=== PATIENT | female | born 1950 | race Caucasian/White ===

== ENCOUNTER → 2016-04-20 | Outpatient (REF) | payer BC ==
[2016-04-20 20:57] LABS: MICROSCOPIC INDICATED? MAN YES (NO)
[2016-04-20 21:04] LABS: BASO % 0.2 % (0.0-1.0); EOS % 0.3 % (0.0-3.0); LARGE UNSTAINED CELL # 0.3 K/mm3 (0.0-0.4); LARGE UNSTAINED CELL % 2.9 % (0.0-4.0); LYMPH # 1.4 K/mm3 (1.5-4.5); LYMPH % 12.4 % (24.0-44.0); MEAN CORPUSCULAR HEMOGLOBIN 28.2 pg (27.0-33.0); MEAN CORPUSCULAR HGB CONC 32.8 g/dl (32.0-36.5); MEAN CORPUSCULAR VOLUME 85.8 fl (80.0-96.0); MONO % 8.7 % (0.0-5.0); NEUTROPHILS # 8.8 K/mm3 (1.8-7.7); NEUTROPHILS % 75.4 % (36.0-66.0); PLATELET COUNT, AUTOMATED 280 k/mm3 (150-450); RED CELL DISTRIBUTION WIDTH 12.3 % (11.5-14.5); WHITE BLOOD COUNT 11.6 K/mm3 (4.0-10.0)
[2016-04-20 21:19] LABS: ALBUMIN 3.1 GM/DL (3.2-5.2); ALBUMIN/GLOBULIN RATIO 0.79 (1.00-1.93); BILIRUBIN,TOTAL 0.7 MG/DL (0.2-1.0); CALCIUM LEVEL 8.3 MG/DL (8.8-10.2); CREATININE FOR GFR 1.16 MG/DL (0.55-1.02); GLOMERULAR FILTRATION RATE 50.2 (>45); POTASSIUM SERUM 3.5 MEQ/L (3.5-5.1)
[2016-04-20 21:28] LABS: BACTERIA, URINE LARGE AMOUNT; HYALINE CAST, URINE NONE SEEN /lpf (0-1); MICROSCOPIC EXAM PERFORMED; SQUAMOUS EPITHELIAL CELL URINE SMALL AMOUNT /hpf (SMALL AMT); WBC, URINE TNTC /hpf (0-3)
== END ==
LOC: M SFHCPLAZ 14:51
PROVIDERS: ATTEND Nurse Practitioner Family
DX: R50.9 Fever, unspecified (principal); R39.15 Urgency of urination

== ENCOUNTER → 2016-04-20 | Outpatient (CLI) | payer BC ==
--- NOTE | 2016-04-20 16:25 | REP ---
Clinical: Fever and cough . Comparison: 05/09/2012 . Technique: PA and lateral. Findings: The mediastinum and cardiac silhouette are normal. The lung grossman are clear and without acute consolidation, effusion, or pneumothorax. The skeletal structures are intact and normal. Impression: 1. No acute cardiopulmonary process. Signed by Drwe Doyle MD 04/20/2016 04:16 P
== END ==
LOC: M LAB 15:43
PROVIDERS: ATTEND Nurse Practitioner Family
DX: R50.9 Fever, unspecified (principal); R05 Cough

== ENCOUNTER → 2016-04-26 | Outpatient (CLI) | payer BC ==
--- NOTE | 2016-04-26 08:54 | REP ---
Complete abdominal sonography: History: Right upper quadrant pain, right flank pain and fever. Findings: Scanning through the right upper quadrant of the abdomen demonstrates normal sized thin-walled gallbladder without evidence of stone or polyp. Common bile duct is normal measuring 0.4 cm in greatest diameter. There is evidence of some fatty infiltration of the liver. No focal liver lesion is seen. The tail of the pancreas is obscured by abdominal gas. No pancreatic abnormality is seen. A normal caliber aorta is seen measuring 2.4 cm in AP dimension. Renal cortical echogenicity pattern is normal and contours are smooth bilaterally. No mass, cyst, hydronephrosis or calculus is seen on either kidney. The right kidney measures 10.9 x 4.5 x 3.8 cm. Left renal dimensions are 10.5 x 4.3 x 4.2 cm. The spleen is homogeneous in texture and normal in size measuring 9.7 cm. Impression: Evidence of fatty infiltration of the liver. Otherwise unremarkable abdominal sonography. Signed by Boo Burciaga MD 04/26/2016 08:06 P
== END ==
LOC: M RAD 07:28
PROVIDERS: ATTEND Internal Medicine
DX: R10.11 Right upper quadrant pain (principal)

== ENCOUNTER → 2016-08-17 | Outpatient (REF) | payer BC | LOC: M SFHCPLAZ 11:53 | PROVIDERS: ATTEND Nurse Practitioner Adult Health | DX: R35.0 Frequency of micturition (principal) ==

== ENCOUNTER → 2016-10-14 | Outpatient (CLI) | payer BC ==
[~2016-10-14] MED LIST: ADV500INH INH; ALBU0.63 INH; ALBU17IN INH; ATOR1TAB19 PO; FLON1SPR; OMEP40CA2 PO; ONE1MIS PO; THEO300T5 PO
[2016-10-14 13:17] LABS: ALBUMIN 3.3 GM/DL (3.2-5.2); ALBUMIN/GLOBULIN RATIO 0.92 (1.00-1.93); BILIRUBIN,TOTAL 0.6 MG/DL (0.2-1.0); CALCIUM LEVEL 9.1 MG/DL (8.8-10.2); CREATININE FOR GFR 1.11 MG/DL (0.55-1.02); GLOMERULAR FILTRATION RATE 52.7 (>45); POTASSIUM SERUM 4.5 MEQ/L (3.5-5.1); TOTAL PROTEIN 6.9 GM/DL (6.4-8.2)
== END ==
LOC: M WUC 08:05
PROVIDERS: ATTEND Internal Medicine
DX: E11.9 Type 2 diabetes mellitus without complications (principal)

== ENCOUNTER → 2016-11-20 | Outpatient (CLI) | payer BC ==
--- NOTE | 2016-11-20 12:01 | REP ---
BILATERAL LOWER EXTREMITY DUPLEX DOPPLER VENOUS ULTRASOUND WITH EVALUATION FOR VENOUS REFLUX: Real-time compression and duplex Doppler interrogation of bilateral lower extremity deep venous systems is performed. Bilaterally, common femoral, superficial femoral and popliteal veins are fully compressible with transducer pressure and demonstrate normal spontaneous and phasic flow without evidence of deep venous thrombosis. Evaluation for venous reflux in the right lower extremity is performed. There is minimal reflux in the right common femoral vein. No reflux is seen in the superficial femoral or popliteal veins. There is an anterior accessory greater saphenous vein present measuring 4 mm in diameter, without reflux, with several varicosities communicating with the anterior accessory greater saphenous vein proximally. The vessel is very tortuous. Minimal reflux is seen in the right greater saphenous vein at the saphenofemoral junction 0.8 seconds duration, AP diameter 6 mm. No reflux is seen in the greater saphenous vein at the mid thigh level, AP diameter 3 mm. There is constant reversal of flow in the greater saphenous vein at the level of the knee. With AP diameter 2 mm. There is no reflux in the lesser saphenous vein AP diameter 4 mm. Please note that with Valsalva maneuver the reversal of flow in the greater saphenous vein at the level of the knee is not visualized. On the left, no reflux is seen in any of the deep veins. There is an anterior accessory greater saphenous vein present measuring 3 mm, without reflux. No reflux is seen in any portion of the greater saphenous vein, AP diameter at the saphenofemoral junction 6 mm, at the mid thigh 4 mm and at the knee 4 mm. There is no reflux in the lesser saphenous vein, AP diameter of 2 mm. Signed by Reg Lundberg MD 11/20/2016 12:53 P
== END ==
LOC: M RAD 09:15
PROVIDERS: ATTEND Surgery Vascular Surgery
DX: I83.011 Varicose veins of right lower extremity with ulcer of thigh (principal); I83.012 Varicose veins of right lower extremity with ulcer of calf

== ENCOUNTER → 2016-12-20 | Outpatient (CLI) | payer BC ==
[2016-12-20 20:06] LABS: CALCIUM LEVEL 9.1 MG/DL (8.8-10.2); GLOMERULAR FILTRATION RATE 59.4 (>45); POTASSIUM SERUM 4.1 MEQ/L (3.5-5.1)
[2016-12-20 20:14] LABS: MEAN CORPUSCULAR HEMOGLOBIN 28.4 pg (27.0-33.0); MEAN CORPUSCULAR HGB CONC 32.2 g/dl (32.0-36.5); MEAN CORPUSCULAR VOLUME 88.3 fl (80.0-96.0); RED CELL DISTRIBUTION WIDTH 12.7 % (11.5-14.5)
== END ==
LOC: M WUC 17:37
PROVIDERS: ATTEND Surgery Vascular Surgery
DX: I87.2 Venous insufficiency (chronic) (peripheral) (principal)

== ENCOUNTER → 2016-12-20 | Outpatient (CLI) | payer BC ==
--- NOTE | 2016-12-20 19:13 | REP ---
Right knee five views : There is no fracture or dislocation. Mineralization and joint spaces are normal. There are no calcifications or foreign bodies. There is questionably a small suprapatellar effusion. Impression: Questionable small suprapatellar effusion. Otherwise, negative right knee . Signed by Reg Beltran MD 12/20/2016 07:04 P
== END ==
LOC: M WUC 17:41
PROVIDERS: ATTEND Nurse Practitioner Adult Health
DX: M25.561 Pain in right knee (principal)

== ENCOUNTER 2016-12-29 13:29 | Day surgery (SDC) | payer BC ==
[~2016-12-29] VITALS: Ht 165.1 cm; Wt 95.3 kg
[~2016-12-29 13:29] MED LIST changes: +LIDOCAINE W/EPINEPHRINE 1% 20ML VIAL As Ordered ONE
[2016-12-29] MEDS ORDERED: LIDOCAINE 1% MDV 20ML VIAL SQ ONE (13:45)
[2016-12-29] MEDS ORDERED: LR 1,000 ML IV ONE (13:45)
[2016-12-29] MEDS ORDERED: fentaNYL 100 MCG/2 ML INJECTION (J3010) As Ordered ONE (15:19)
[2016-12-29] MEDS ORDERED: MIDAZOLAM INJ 2 MG/2 ML VIAL (J2250) As Ordered ONE (15:19)
[2016-12-29] MEDS ORDERED: KETAMINE HCL 200 MG/20 ML VIAL As Ordered ONE (15:19)
[2016-12-29] MEDS ORDERED: PROPOFOL 200 MG/20 ML VIAL As Ordered ONE (15:20)
[2016-12-29] MEDS ORDERED: LIDOCAINE 2% INJ 100 MG/5 ML SDV (FOR ANES.) As Ordered ONE (15:20)
[2016-12-29] MEDS ORDERED: ONDANSETRON 4MG/2ML VIAL (J2405) IV PRN (16:00)
[2016-12-29] MEDS ORDERED: fentaNYL 100 MCG/2 ML INJECTION (J3010) IV PRN (16:00)
[2016-12-29] MEDS ORDERED: LR 1,000 ML IV SCH (16:00)
[2016-12-29] MEDS ORDERED: PERCOCET 5MG/325MG TAB PO PRN (16:00)
[2016-12-29 16:15] VITALS: BP 144/67
--- NOTE | 2017-01-10 13:08 | RO ---
DATE OF PROCEDURE: 12/29/2016 PREOPERATIVE DIAGNOSES: Right lower extremity varicose veins. Right lower extremity pain, swelling, throbbing, aching and heaviness. Right greater saphenous vein venous valvular insufficiency. Right common femoral vein venous valvular insufficiency. POSTOPERATIVE DIAGNOSES: Right lower extremity varicose veins. Right lower extremity pain, swelling, throbbing, aching and heaviness. Right greater saphenous vein venous valvular insufficiency. Right common femoral vein venous valvular insufficiency. PROCEDURE: Right greater saphenous vein radiofrequency ablation. SURGEON: Dr. Eran Tenorio FIRST RESPONDER: None. ANESTHESIA: Local, MAC. ESTIMATED BLOOD LOSS: 21 mL. IV FLUIDS: 1000 mL. SPECIMENS: None. COMPLICATIONS: None. DRAINS: None. IMPLANTS: None. INDICATION: The patient is a 66-year-old female with pain, swelling, throbbing and aching in the lower extremity who has tried compressive therapy with minimal success who was evaluated and found to have valvular insufficiency in both the right greater saphenous vein and the right common femoral vein. The patient was evaluated and options discussed with the patient. The patient wishes to proceed with a right greater saphenous vein radiofrequency ablation. The risks, benefits and alternative treatment options were discussed with the patient. Benefits included, but were not limited to, relief of symptoms, risks including but not limited to infection, bleeding, possible need for open surgical intervention, cerebrovascular accident, myocardial infarction, pulmonary embolus, deep vein thrombosis, renal failure requiring hemodialysis, loss of limb, loss of life, burning of the skin, and poor outcome. The patient understands and accepts these risks and consents to procedure. Alternative treatment options included, but were not limited to, no intervention. The patient also understands that due to the presence of the right common femoral vein valvular insufficiency that her symptoms may not completely be abated and that she will require life long compressive therapy with compression stockings. The patient voices understanding of these risks, benefits, and alternative treatment options. All patient's questions were answered. The patient consents to proceed and accepts these risks associated with the procedure. PROCEDURE: The patient was taken to the operating room and placed supine on the operating room table and the right lower extremity was prepped and draped in a standard surgical fashion. Ultrasound was used to gain access of the right greater saphenous vein in the below knee region with a micropuncture needle after anesthetizing the overlying skin with 1% lidocaine. The micropuncture wire was advanced through the micropuncture needle which was up sized to a micropuncture sheath. A J-wire was advanced through the micropuncture sheath which was up sized to a 7 Macedonian sheath. The radiofrequency ablation catheter was advanced to 2 cm distal to the saphenofemoral junction. The tumescent solution was injected circumferentially around the right greater saphenous vein from the saphenofemoral junction to the entrance site in the below knee region, after which, the right greater saphenous vein was ablated using the radiofrequency ablation catheter from 2 cm distal to the saphenofemoral junction to the exit site in the below knee region. Dressings were then applied. The patient tolerated the procedure well. All instrument, sponge and needle counts were correct at the end of the case. There were no complications. Dr. Tenorio was present for and directed the entire case. The patient was transferred to the recovery room awake, alert, oriented and in stable condition.
== END 2016-12-29 16:33 | disposition home or self-care (01) ==
LOC: M SDC 13:29
PROVIDERS: ATTEND Surgery Vascular Surgery
DX: I83.811 Varicose veins of right lower extremity with pain (principal); I73.9 Peripheral vascular disease, unspecified; K21.9 Gastro-esophageal reflux disease without esophagitis; J45.909 Unspecified asthma, uncomplicated; E78.00 Pure hypercholesterolemia, unspecified; K57.32 Diverticulitis of large intestine without perforation or abscess without bleeding; K22.0 Achalasia of cardia; Z88.1 Allergy status to other antibiotic agents; Z88.2 Allergy status to sulfonamides; Z88.5 Allergy status to narcotic agent; Z88.8 Allergy status to other drugs, medicaments and biological substances; Z91.040 Latex allergy status; Z79.899 Other long term (current) drug therapy
CPT/HCPCS: 36475; J2250; J3010

== ENCOUNTER → 2017-01-05 | Outpatient (CLI) | payer BC ==
[~2017-01-05] MED LIST changes: -LIDOCAINE W/EPINEPHRINE 1% 20ML VIAL As Ordered ONE
--- NOTE | 2017-01-05 11:08 | REP ---
Right lower extremity deep vein duplex ultrasound: The deep veins demonstrate normal compression, normal Doppler color flow and normal Doppler waveforms with respiration augmentation at multiple levels from the popliteal vein to the common femoral vein. There is no deep vein thrombus in the right lower extremity. The the patient has had right saphenous vein ablation. There is thrombosis throughout the saphenous vein as expected. Signed by Reg Beltran MD 01/05/2017 10:59 A
== END ==
LOC: M RAD 09:02
PROVIDERS: ATTEND Surgery Vascular Surgery
DX: I87.2 Venous insufficiency (chronic) (peripheral) (principal)

== ENCOUNTER → 2017-03-13 | Outpatient (CLI) | payer BC | LOC: M WUC 17:43 | PROVIDERS: ATTEND Allergy & Immunology | DX: J45.40 Moderate persistent asthma, uncomplicated (principal) ==

== ENCOUNTER → 2017-03-30 | Outpatient (REF) | payer BC ==
[2017-03-30 11:26] LABS: MEAN CORPUSCULAR HEMOGLOBIN 27.8 pg (27.0-33.0); MEAN CORPUSCULAR HGB CONC 31.7 g/dl (32.0-36.5); MEAN CORPUSCULAR VOLUME 87.4 fl (80.0-96.0); PLATELET COUNT, AUTOMATED 518 10^3/uL (150-450); RED CELL DISTRIBUTION WIDTH 13.1 % (11.5-14.5); WHITE BLOOD COUNT 16.3 10^3/uL (4.0-10.0)
[2017-03-30 12:01] LABS: ALBUMIN 3.3 GM/DL (3.2-5.2); ALBUMIN/GLOBULIN RATIO 0.87 (1.00-1.93); ALKALINE PHOSPHATASE 124 U/L (45-117); ALT/SGPT 18 U/L (12-78); ANION GAP 7 MEQ/L (8-16); AST/SGOT 12 U/L (7-37); BILIRUBIN,TOTAL 0.4 MG/DL (0.2-1.0); BLOOD UREA NITROGEN 15 MG/DL (7-18); CALCIUM LEVEL 8.8 MG/DL (8.8-10.2); CARBON DIOXIDE LEVEL 32 MEQ/L (21-32); CHLORIDE LEVEL 103 MEQ/L (98-107); CHOLESTEROL LEVEL 178 MG/DL (<200); CREATININE FOR GFR 0.88 MG/DL (0.55-1.02); GLOMERULAR FILTRATION RATE > 60.0 (>45); GLUCOSE, FASTING 117 MG/DL (80-110); POTASSIUM SERUM 4.1 MEQ/L (3.5-5.1); SODIUM LEVEL 142 MEQ/L (136-145); THEOPHYLLINE LEVEL 16.2 UG/ML (10.0-20.0); TOTAL PROTEIN 7.1 GM/DL (6.4-8.2); TRIGLYCERIDES LEVEL 89 MG/DL (<150)
== END ==
LOC: M SFHCPLAZ 08:02
PROVIDERS: ATTEND Internal Medicine
DX: J45.909 Unspecified asthma, uncomplicated (principal); E11.9 Type 2 diabetes mellitus without complications; E78.00 Pure hypercholesterolemia, unspecified

== ENCOUNTER → 2017-04-27 | Outpatient (CLI) | payer BC | LOC: M WHC 07:56 | DX: Z12.31 Encounter for screening mammogram for malignant neoplasm of breast (principal); Z92.241 Personal history of systemic steroid therapy | CPT/HCPCS: 77067 ==

== ENCOUNTER → 2017-06-20 | Outpatient (REF) | payer BC ==
[2017-06-22 15:19] LABS: HPV HYBRID CAPTURE II Negative (Negative)
== END ==
LOC: M SFHCWAGY 08:45
DX: Z01.419 Encounter for gynecological examination (general) (routine) without abnormal findings (principal); Z11.51 Encounter for screening for human papillomavirus (HPV); N72 Inflammatory disease of cervix uteri
CPT/HCPCS: G0123

== ENCOUNTER → 2017-10-22 | Outpatient (REF) | payer BC ==
[2017-10-22 11:44] LABS: HEMATOCRIT 39.4 % (36.0-47.0); HEMOGLOBIN 12.8 g/dl (12.0-15.5); MEAN CORPUSCULAR HEMOGLOBIN 28.4 pg (27.0-33.0); MEAN CORPUSCULAR HGB CONC 32.5 g/dl (32.0-36.5); MEAN CORPUSCULAR VOLUME 87.6 fl (80.0-96.0); PLATELET COUNT, AUTOMATED 365 10^3/uL (150-450); RED CELL DISTRIBUTION WIDTH 13.4 % (11.5-14.5); WHITE BLOOD COUNT 11.1 10^3/uL (4.0-10.0)
[2017-10-22 12:10] LABS: ALBUMIN 3.3 GM/DL (3.2-5.2); ALBUMIN/GLOBULIN RATIO 0.85 (1.00-1.93); ALKALINE PHOSPHATASE 135 U/L (45-117); ALT/SGPT 20 U/L (12-78); ANION GAP 7 MEQ/L (8-16); AST/SGOT 16 U/L (7-37); BILIRUBIN,TOTAL 0.6 MG/DL (0.2-1.0); BLOOD UREA NITROGEN 17 MG/DL (7-18); CALCIUM LEVEL 9.1 MG/DL (8.8-10.2); CARBON DIOXIDE LEVEL 31 MEQ/L (21-32); CHLORIDE LEVEL 107 MEQ/L (98-107); CREATININE FOR GFR 0.94 MG/DL (0.55-1.30); GLOMERULAR FILTRATION RATE > 60.0 (>45); GLUCOSE, FASTING 115 MG/DL (70-100); POTASSIUM SERUM 4.4 MEQ/L (3.5-5.1); SODIUM LEVEL 145 MEQ/L (136-145); TOTAL PROTEIN 7.2 GM/DL (6.4-8.2)
[2017-10-22 12:16] LABS: CREATININE, URINE 98.1 MG/DL; MALB URINE SIEMENS 11.8 MG/L
[2017-10-22 13:48] LABS: ESTIMATED AVERAGE GLUCOSE 146 MG/DL (60-110); HEMOGLOBIN A1c 6.7 %
== END ==
LOC: M SFHCPLAZ 08:06
DX: J45.909 Unspecified asthma, uncomplicated (principal); E11.9 Type 2 diabetes mellitus without complications
CPT/HCPCS: 83735

== ENCOUNTER → 2018-03-06 | Outpatient (REF) | payer BC ==
[2018-03-06 13:33] LABS: HEMATOCRIT 38.9 % (36.0-47.0); HEMOGLOBIN 12.5 g/dl (12.0-15.5); MEAN CORPUSCULAR HGB CONC 32.1 g/dl (32.0-36.5); MEAN CORPUSCULAR VOLUME 87.2 fl (80.0-96.0); PLATELET COUNT, AUTOMATED 315 10^3/uL (150-450); RED BLOOD COUNT 4.46 10^6/uL (4.00-5.40); RED CELL DISTRIBUTION WIDTH 13.4 % (11.5-14.5); WHITE BLOOD COUNT 22.9 10^3/uL (4.0-10.0)
[2018-03-06 13:40] LABS: ALBUMIN 3.3 GM/DL (3.2-5.2); ALBUMIN/GLOBULIN RATIO 0.97 (1.00-1.93); ALKALINE PHOSPHATASE 114 U/L (45-117); ALT/SGPT 21 U/L (12-78); ANION GAP 10 MEQ/L (8-16); AST/SGOT 14 U/L (7-37); BILIRUBIN,TOTAL 0.7 MG/DL (0.2-1.0); BLOOD UREA NITROGEN 14 MG/DL (7-18); CALCIUM LEVEL 8.7 MG/DL (8.8-10.2); CARBON DIOXIDE LEVEL 26 MEQ/L (21-32); CHLORIDE LEVEL 98 MEQ/L (98-107); CREATININE FOR GFR 1.02 MG/DL (0.55-1.30); GLOMERULAR FILTRATION RATE 57.9 (>45); GLUCOSE, FASTING 228 MG/DL (70-100); POTASSIUM SERUM 3.7 MEQ/L (3.5-5.1); SODIUM LEVEL 134 MEQ/L (136-145); TOTAL PROTEIN 6.7 GM/DL (6.4-8.2)
== END ==
LOC: M SFHCPLAZ 10:45
DX: R50.9 Fever, unspecified (principal)
CPT/HCPCS: 80053

== ENCOUNTER → 2018-03-30 | Outpatient (CLI) | payer BC ==
--- NOTE | 2018-03-30 14:59 | REP ---
Clinical: Shortness of breath. Comparison: 04/20/2016 . Technique: PA and lateral. Findings: The mediastinum and cardiac silhouette are normal. The lung grossman are clear and without acute consolidation, effusion, or pneumothorax. The skeletal structures are intact and normal. Impression: 1. No acute cardiopulmonary process. Electronically Signed by Drew Doyle MD 03/30/2018 02:50 P
== END ==
LOC: M WUC 14:17
PROVIDERS: ATTEND Physician Assistant
DX: R06.02 Shortness of breath (principal)

== ENCOUNTER → 2018-04-22 | Outpatient (REF) | payer BC ==
[2018-04-22 12:51] LABS: ALBUMIN 3.4 GM/DL (3.2-5.2); ALT/SGPT 22 U/L (12-78); BILIRUBIN,TOTAL 0.4 MG/DL (0.2-1.0); BLOOD UREA NITROGEN 15 MG/DL (7-18); CALCIUM LEVEL 9.6 MG/DL (8.8-10.2); CARBON DIOXIDE LEVEL 28 MEQ/L (21-32); CHLORIDE LEVEL 107 MEQ/L (98-107); CHOLESTEROL LEVEL 191 MG/DL (<200); CHOLESTEROL RISK RATIO 2.938 (<5); CREATININE FOR GFR 0.94 MG/DL (0.55-1.30); GLOMERULAR FILTRATION RATE > 60.0 (>45); GLUCOSE, FASTING 127 MG/DL (70-100); HDL CHOLESTEROL 65 MG/DL (>40); LDL CHOLESTEROL 112 MG/DL (<100); MAGNESIUM LEVEL 2.2 MG/DL (1.8-2.4); NON-HDL-C 126 MG/DL; POTASSIUM SERUM 4.7 MEQ/L (3.5-5.1); SODIUM LEVEL 144 MEQ/L (136-145); TOTAL PROTEIN 7.2 GM/DL (6.4-8.2); TRIGLYCERIDES LEVEL 72 MG/DL (<150)
[2018-04-22 13:40] LABS: HEMOGLOBIN A1c 7.6 %
== END ==
LOC: M SFHCPLAZ 08:31
PROVIDERS: ATTEND Internal Medicine
DX: E11.9 Type 2 diabetes mellitus without complications (principal); E78.00 Pure hypercholesterolemia, unspecified; K22.0 Achalasia of cardia

== ENCOUNTER 2018-09-10 15:03 | Inpatient (IN) | payer BC, MEDICARE ==
[~2018-09-10] VITALS: Ht 165.1 cm; Wt 83.7 kg
[~2018-09-10 15:03] MED LIST changes: -ALBU83IN INH; -AMOX875T2 PO; -FLUC150T PO; -MUCI600T31 PO; -MULTCAP PO; -THEO300T13 PO; -VENTAER INH
[2018-09-10] MEDS ORDERED: IPRATROPIUM 0.5MG/ALBUTEROL 2.5MG INH SOL UD 3ML (DUONEB)(J7620) NEB ONE (16:00)
[2018-09-10] MEDS ORDERED: cefTRIAXone SOD 1 GM in D5W MINI-BAG PLUS 50 ML IV ONE (16:15)
[2018-09-10] MEDS ORDERED: ALBUTEROL SULFATE 2.5 MG/0.5 ML INH NEB SOLN INH PRN (16:30)
[2018-09-10] MEDS ORDERED: MOM 30ML SUSPENSION UDC PO PRN (16:30)
[2018-09-10] MEDS ORDERED: MAALOX 30 ML SUSP *UDC PO PRN (16:30)
[2018-09-10] MEDS ORDERED: ACETAMINOPHEN TAB 650MG DOSE (2X325MG) PO PRN (16:30)
[2018-09-10] MEDS ORDERED: ALBU83IN INH (16:52)
[2018-09-10] MEDS ORDERED: MULTCAP PO (16:52)
[2018-09-10] MEDS ORDERED: VENTAER INH (16:52)
[2018-09-10] MEDS ORDERED: THEO300T13 PO (16:53)
[2018-09-10] MEDS ORDERED: DOXYCYCLINE HYCLATE 100 MG in D5W MINI-BAG PLUS 100 ML IV ONE (17:15)
[2018-09-10 18:15] VITALS: BP 107/71
--- NOTE | 2018-09-10 19:22 | HPEPDOC ---
General Date of Admission 09/10/18 Date of Service: Sep 10, 2018 Attending Physician: STACIA RIOS DO Chief Complaint The patient is a 68-year-old female admitted with cough, fever, chills and cxr consistent with RLL pneumonia Source: Patient Exam Limitations: No limitations Timing/Duration: Day(s), Getting worse Severity: Moderate Associated Symptoms: Cough, Diaphoresis, Fever, Chills, Malaise, Shortness of breath History of Present Illness 68 yo female was in [place] over the past weekend for Granddaughter birthday when she developed 3-4 days of fever, chills, non productive cough. worsening and this AM was short of breath and seen in office, sent to ED. She states no ill contacts. States 4 weeks ago had esophageal dilitation due to GERD, 3 weeks ago saw ENT and stopped all sinus/allergy medications and told to use distilled water saline rinse. [facility] 2 weeks ago had right eye injection for macular degeneration; She has numerous antibiotic allergies and initial antibiotics of doxycycline and rocephin held by pharmacy. Patient states although she is "allergic" to doxacillin with altered mental status, she has taken augmentin before with no rash or ill effects. Home Medications Scheduled Atorvastatin Calcium (Atorvastatin Calcium) 10 Mg Tab, 10 MG PO QHS, (Reported) Multivitamin (Multivitamins) 1 Each Capsule, 1 CAP PO DAILY, (Reported) Omeprazole (Omeprazole) 40 Mg Cap, 40 MG PO DAILY, (Reported) Salmeterol/Fluticasone (Advair 500-50 Diskus) 28 Puff/Inhaler Aerp, 1 PUFF INH BID, (Reported) Theophylline Anhydrous (Theophylline Anhydrous) 300 Mg Tab.er.12h, 300 MG PO DAILY, (Reported) Scheduled PRN Albuterol Sulf (Albuterol Sulfate) 2.5 Mg/3 Ml Vial.neb, 2.5 MG INH Q4H PRN for SHORTNESS OF BREATH, (Reported) Albuterol Sulfate (Ventolin Hfa) 18 Gm Hfa.aer.ad, 2 PUFF INH Q4H PRN for SH ORTNESS OF BREATH, (Reported) Allergies Coded Allergies: Sulfa (Sulfonamide Antibiotics) (Verified Allergy, Intermediate, itchy rash, 09/10/18) bacitracin (Verified Allergy, Intermediate, rash, 09/10/18) cefaclor (Verified Allergy, Intermediate, rash, 09/10/18) clarithromycin (Verified Allergy, Intermediate, rash, 09/10/18) dicloxacillin (Verified Allergy, Intermediate, change LOC, 09/10/18) latex (Verified Allergy, Intermediate, rash, 09/10/18) moxifloxacin (Verified Allergy, Intermediate, rash, 09/10/18) phenazopyridine (Verified Allergy, Intermediate, 09/10/18) polymyxin B (Verified Allergy, Intermediate, rash, 09/10/18) tramadol (Verified Allergy, Intermediate, unk, 09/10/18) Past Medical History Medical History asthma, GERD, Chronic sinusitis, heart murmur, Right eye macular degeneration, vericose veins, Hx of right tib plateau fracture in 2018 Surgical History colonoscopy 08/2018, EGD with esophageal dilitation 08/2018, right leg vein stripping, Family History Significant Family History: COPD (both parents heavy smokers) Social History * Smoker: non-smoker, other (second hand smoke as child/teen) Alcohol: rarely Drugs: denies Recent Travel/Sick Contacts: Reports: Recent travel (drove to [place] and back on 09/04 and 09/07) A-FIB/CHADSVASC A-FIB History Current/History of A-Fib/PAF?: No Review of Systems Other systems 10 comprehensive systems reviewed and negative except as per HPI Physical Examination General Exam: Positive: Alert, Cooperative, Mild Distress Eye Exam: Positive: PERRLA, Conjunctiva & lids normal, EOMI ENT Exam: Positive: Mucous membr. moist/pink, Pharynx Normal Neck Exam: Positive: Supple, +2 carotid pulse wo bruit Chest Exam: Positive: Clear to auscultation, Normal air movement, Diminished (right base) Heart Exam: Positive: Rate Normal, Murmurs Abdomen Exam: Positive: Normal bowel sounds, Soft, Tenderness Extremity Exam: Positive: Normal pulses, Other (mild lymphedema, no pitting edema, no skin rash; significant bilateral vericose veins to legs) Skin Exam: Positive: Nl turgor and temperature Neuro Exam: Positive: Normal Gait, Normal Speech, Strength at 5/5 X4 ext, Normal Tone, Sensation Intact Psych Exam: Positive: Mental status NL, Mood NL, Oriented x 3 Vital Signs Vital Signs Date Time Temp Pulse Resp B/P (MAP) Pulse Ox O2 Delivery O2 Flow Rate FiO2 09/10/18 15:50 Room Air 09/10/18 15:39 77 18 123/79 (94) 96 09/10/18 15:03 98.4 Laboratory Data CBC/BMP Item Value Date Time White Blood Count 28.1 10^3/uL H 09/10/18 1329 Hemoglobin 13.1 g/dl 09/10/18 1329 Hematocrit 40.7 % 09/10/18 1329 Platelet Count 312 10^3/uL 09/10/18 1329 Neutrophils (%) (Auto) 85.6 % H 09/10/18 1329 Lymphocytes (%) (Auto) 6.4 % L 09/10/18 1329 Monocytes (%) (Auto) 6.8 % H 09/10/18 1329 Neutrophils # (Auto) 24.1 10^3/uL H 09/10/18 1329 Monocytes # (Auto) 1.9 10^3/uL H 09/10/18 1329 Sodium Level 138 MEQ/L 09/10/18 1329 Potassium Level 4.0 MEQ/L 09/10/18 1329 Chloride Level 103 MEQ/L 09/10/18 1329 Carbon Dioxide Level 28 MEQ/L 09/10/18 1329 Blood Urea Nitrogen 12 MG/DL 09/10/18 1329 Creatinine 1.01 MG/DL 09/10/18 1329 Anion Gap 7 MEQ/L L 09/10/18 1329 Total Protein 7.0 GM/DL 09/10/18 1329 Albumin/Globulin Ratio 0.79 L 09/10/18 1329 Albumin 3.1 GM/DL L 09/10/18 1329 Lactic Acid Level 1.3 MMOL/L 09/10/18 1329 Microbiology Microbiology 09/10/18 Blood Culture, Received Pending 09/10/18 Respiratory Virus Panel (PCR) (DARYL), Received Pending RAD Interpretation STUDY: CXR Rad Actions: Report Reviewed, Films Reviewed, Discussed with the pt RAD Interpretation: Other Result Comments: (subtle RLL pneumonia/infiltrate, no effusion, no cardiomegally) Problems (1) Pneumonia Permanent Comment: probable bacterial, community acquired Last Edited By: Stacia Rios MD on Sep 10, 2018 19:25 Status: Acute Response to Treatment: Compensated (2) Asthma without acute exacerbation Plan / VTE VTE Prophylaxis Ordered?: Yes Plan Plan IVF given in ED Start IV zosyn, Blood culture, sputum cultures obtained. rachael echavarria repeat labs in AM Diet: Advance Medications: Change to IV, Start Antibiotics Respiratory: Increase Therapy, Pulse Ox on Room Air Diagnostics: Repeat Labs in AM Anticipated Discharge: Home STACIA RIOS DO Sep 10, 2018 16:32
[2018-09-10] MEDS: ATORVASTATIN 10 MG TAB PO SCH (20:33)
[2018-09-10] MEDS: DOCUSATE SODIUM 100 MG CAP PO SCH (20:33)
[2018-09-10] MEDS: guaiFENesin ER 600 MG TAB PO SCH (20:34)
[2018-09-10] MEDS: IPRATROPIUM 0.5MG/ALBUTEROL 2.5MG INH SOL UD 3ML (DUONEB)(J7620) INH SCH ×2 (20:46→23:39)
[2018-09-10] MEDS: PIPERACILLIN/TAZOBACTAM SOD 4.5 GM in D5W MINI-BAG PLUS 50 ML IV SCH (21:25)
[2018-09-10 22:00] VITALS: BP 100/52
[2018-09-10] MEDS: ADVAIR HFA 230/21MCG INHALER INH SCH (23:46)
[2018-09-11] MEDS: IPRATROPIUM 0.5MG/ALBUTEROL 2.5MG INH SOL UD 3ML (DUONEB)(J7620) INH SCH ×5 (03:11→20:00)
[2018-09-11 06:00] VITALS: BP 100/64
[2018-09-11] MEDS: PIPERACILLIN/TAZOBACTAM SOD 4.5 GM in D5W MINI-BAG PLUS 50 ML IV SCH ×3 (06:14→22:03)
[2018-09-11 06:19] LABS: HEMATOCRIT 36.7 % (36.0-47.0); HEMOGLOBIN 11.8 g/dl (12.0-15.5); MEAN CORPUSCULAR HEMOGLOBIN 28.8 pg (27.0-33.0); MEAN CORPUSCULAR HGB CONC 32.2 g/dl (32.0-36.5); MEAN CORPUSCULAR VOLUME 89.5 fl (80.0-96.0); PLATELET COUNT, AUTOMATED 257 10^3/uL (150-450); WHITE BLOOD COUNT 16.3 10^3/uL (4.0-10.0)
[2018-09-11 06:42] LABS: BLOOD UREA NITROGEN 13 MG/DL (7-18); CALCIUM LEVEL 8.9 MG/DL (8.8-10.2); CARBON DIOXIDE LEVEL 26 MEQ/L (21-32); CHLORIDE LEVEL 106 MEQ/L (98-107); CREATININE FOR GFR 0.98 MG/DL (0.55-1.30); GLOMERULAR FILTRATION RATE > 60.0 (>45); GLUCOSE, FASTING 123 MG/DL (70-100); POTASSIUM SERUM 3.7 MEQ/L (3.5-5.1); SODIUM LEVEL 140 MEQ/L (136-145)
[2018-09-11] MEDS: THEOPHYLLINE (THEO-24) 100MG SR **CAPSULE PO SCH (08:05)
[2018-09-11] MEDS: guaiFENesin ER 600 MG TAB PO SCH ×2 (08:05→22:03)
[2018-09-11] MEDS: MULTIVITAMINS/MINERALS THERAP 1 TAB PO SCH (08:05)
[2018-09-11] MEDS: ENOXAPARIN 40 MG/0.4 ML SYRINGE (J1650) SC SCH (08:05)
[2018-09-11] MEDS: OMEPRAZOLE 20 MG CAP PO SCH (08:06)
[2018-09-11] MEDS: DOCUSATE SODIUM 100 MG CAP PO SCH ×2 (08:06→22:03)
[2018-09-11] MEDS: ADVAIR HFA 230/21MCG INHALER INH SCH ×2 (09:13→20:32)
[2018-09-11 14:28] VITALS: BP 98/46
[2018-09-11 15:30] VITALS: BP 117/56
[2018-09-11] MEDS: ATORVASTATIN 10 MG TAB PO SCH (22:03)
[2018-09-12] VITALS: BP 115/68
[2018-09-12] MEDS: IPRATROPIUM 0.5MG/ALBUTEROL 2.5MG INH SOL UD 3ML (DUONEB)(J7620) INH SCH ×5 (00:41→20:00)
[2018-09-12] MEDS: PIPERACILLIN/TAZOBACTAM SOD 4.5 GM in D5W MINI-BAG PLUS 50 ML IV SCH ×3 (05:35→21:04)
[2018-09-12 06:00] VITALS: BP 96/50
[2018-09-12] MEDS: ADVAIR HFA 230/21MCG INHALER INH SCH ×2 (07:42→20:08)
[2018-09-12 08:00] VITALS: BP 106/60
--- NOTE | 2018-09-12 09:23 | IPNPDOC ---
Subjective Date Seen The patient was seen on 09/11/18. Subjective Chief Complaint/HPI 68 yo admitted with pneumonia. currently on zosyn day 2; patient states feels better today. At 3am this am 09/11/18, she had large mucus post tussis emesis with copious yellow phlegm and her breathing felt improved. States increased coughing today, no fever. mild SOB ambulating to bathroom, no N, no V of meals Current Medications Acetaminophen (Tylenol Tab) 650 mg Q4H PRN PO PAIN OR FEVER; Start 09/10/18 at 16:30 Al Hydrox/Mg Hydrox/Simethicone (Mylanta) 10 ml DAILY PRN PO DYSPEPSIA; Start 09/10/18 at 16:30 Albuterol Sulfate (Proventil Neb) 2.5 mg Q4HP PRN INH WHEEZING; Start 09/10/18 at 16:30 Albuterol/ Ipratropium (Duoneb (Ipr 0.5mg/Alb 2.5mg)) 3 ml RQ4H INH Last administered on 09/11/18at 15:36; Start 09/10/18 at 20:00 Atorvastatin Calcium (Lipitor) 10 mg QHS PO Last administered on 09/10/18at 20:33; Start 09/10/18 at 21:00 Docusate Sodium (Colace) 100 mg BID PO Last administered on 09/11/18at 08:06; Start 09/10/18 at 21:00 Enoxaparin Sodium (Lovenox) 40 mg DAILY SC Last administered on 09/11/18at 08:05; Start 09/11/18 at 09:00 Guaifenesin (Mucinex Tab Er) 1,200 mg BID PO Last administered on 09/11/18at 08:05; Start 09/10/18 at 21:00 Home Med (Med Rec Complete!) ASDIRECTED XX ; Start 09/10/18 at 17:00; Stop 09/10/18 at 17:05; Status DC Magnesium Hydroxide (Milk Of Magnesia) 30 ml DAILY PRN PO CONSTIPATION; Start 09/10/18 at 16:30 Multivitamins (Theragram-M) 1 tab DAILY PO Last administered on 09/11/18at 08:05; Start 09/11/18 at 09:00 Omeprazole (PriLOSEC) 40 mg DAILY PO Last administered on 09/11/18at 08:06; Start 09/11/18 at 09:00 Piperacillin Sod/ Tazobactam Sod 4.5 gm/Dextrose 50 ml @ 50 mls/hr Q8H IV Last administered on 09/11/18at 13:10; Start 09/10/18 at 21:00 Salmeterol Xinafoate/ Fluticasone (Advair Hfa 230/ 21) 1 puff BID INH Last administered on 09/11/18at 09:13; Start 09/10/18 at 21:00 Theophylline (Arthur-24) 600 mg DAILY PO Last administered on 09/11/18at 08:05; Start 09/11/18 at 09:00 Objective Physical Examination General Exam: Positive: Alert, Cooperative, No Acute Distress Eye Exam: Positive: PERRLA, Conjunctiva & lids normal, EOMI ENT Exam: Positive: Mucous membr. moist/pink, Pharynx Normal Neck Exam: Positive: Supple, +2 carotid pulse wo bruit Chest Exam: Positive: Clear to auscultation, Normal air movement, Rhonchi, Diminished ( with wheeze to right base during cough episode) Heart Exam: Positive: Rate Normal, Murmurs Abdomen Exam: Positive: Normal bowel sounds, Soft, Tenderness Extremity Exam: Positive: Normal pulses, Other (mild lymphedema, no pitting edema, no skin rash; significant bilateral vericose veins to legs) Skin Exam: Positive: Nl turgor and temperature Neuro Exam: Positive: Normal Gait, Normal Speech, Strength at 5/5 X4 ext, Normal Tone, Sensation Intact Psych Exam: Positive: Mental status NL, Mood NL, Oriented x 3 Assessment /Plan Problems (1) Pneumonia Permanent Comment: probable bacterial, community acquired Last Edited By: Val Rios MD on Sep 10, 2018 19:25 Status: Acute Response to Treatment: Compensated Problem Text: continue with zosyn, PEP/acapella,nebs, mucinex. (2) Asthma without acute exacerbation Response to Treatment: Stable Plan/VTE VTE Prophylaxis Ordered?: Yes Plan Anticipated Discharge: Home VS, I&O, 24H, Fishbone Vital Signs/I&O Vital Signs Date Time Temp Pulse Resp B/P (MAP) Pulse Ox O2 Delivery O2 Flow Rate FiO2 09/11/18 15:41 100 09/11/18 14:28 98.7 14 98/46 (63) 99 09/10/18 18:03 Room Air I&O- Last 24 Hours up to 6 AM 09/11/18 06:00 Intake Total 300 ml Output Total 500 ml Balance -200 ml Laboratory Data 24H LABS Laboratory Tests 2 09/11/18 05:59: Nucleated Red Blood Cells % (auto) 0.0, Anion Gap 8, Glomerular Filtration Rate > 60.0, Blood Urea Nitrogen 13, Creatinine 0.98, Sodium Level 140, Potassium Level 3.7, Chloride Level 106, Carbon Dioxide Level 26, Calcium Level 8.9 09/11/18 09:14: CBC/BMP Laboratory Tests 09/11/18 05:59 Red Blood Count 4.10, Mean Corpuscular Volume 89.5, Mean Corpuscular Hemoglobin 28.8, Mean Corpuscular Hemoglobin Concent 32.2, Red Cell Distribution Width 13.7, Calcium Level 8.9 Microbiology Microbiology 09/10/18 Blood Culture, Received Pending 09/10/18 Blood Culture, Received Pending 09/10/18 Gram Stain - Final, Resulted 09/10/18 Sputum Culture, Resulted Pending 09/10/18 Respiratory Virus Panel (PCR) (DARYL) - Final, Complete VAL RIOS DO Sep 11, 2018 15:52
--- NOTE | 2018-09-12 09:26 | IPNPDOC ---
Text Note Date of Service The patient was seen on 09/12/18. NOTE S: 68 yo female admitted with pneumonia - probable bacterial. states feeling better still with copious yellow sputum, mostly during evening. no SOB, no LEE, no CP O: Vitals as below General: pleasant, NAD, AAOx3 HRRR LCTA with course rhonchi and occasional wheeze with forced exhalation Ext no edema Skin: No rash Labs as below A/P: (1) Pneumonia Permanent Comment: probable bacterial, community acquired Last Edited By: Val Rios MD on Sep 10, 2018 19:25 Status: Acute Response to Treatment: Compensated Problem Text: continue with zosyn, PEP/acapella,nebs, mucinex. (2) Asthma without acute exacerbation Response to Treatment: Stable Await sputum culture, urine for strep, etc. If WBC decreased tomorrow, anticipate d/c home. Item Value Date Time White Blood Count 16.3 10^3/uL H 09/11/18 0559 Hemoglobin 11.8 g/dl L 09/11/18 0559 VS,Fishbone, I+O VS, Fishbone, I+O Vital Signs Date Time Temp Pulse Resp B/P (MAP) Pulse Ox O2 Delivery O2 Flow Rate FiO2 09/12/18 08:00 97.5 75 18 106/60 (75) 95 09/10/18 18:03 Room Air I&O- Last 24 Hours up to 6 AM 09/12/18 06:00 Intake Total 1940 ml Output Total 2850 ml Balance -910 ml VAL RIOS DO Sep 12, 2018 09:25
[2018-09-12] MEDS: MULTIVITAMINS/MINERALS THERAP 1 TAB PO SCH (09:28)
[2018-09-12] MEDS: ENOXAPARIN 40 MG/0.4 ML SYRINGE (J1650) SC SCH (09:29)
[2018-09-12] MEDS: DOCUSATE SODIUM 100 MG CAP PO SCH ×2 (09:30→21:03)
[2018-09-12] MEDS: guaiFENesin ER 600 MG TAB PO SCH ×2 (09:30→21:04)
[2018-09-12] MEDS: THEOPHYLLINE (THEO-24) 100MG SR **CAPSULE PO SCH (09:30)
[2018-09-12] MEDS: OMEPRAZOLE 20 MG CAP PO SCH (09:30)
[2018-09-12 12:00] VITALS: BP 100/53
[2018-09-12 16:00] VITALS: BP 113/65
[2018-09-12 20:00] VITALS: BP 113/68
[2018-09-12] MEDS: ATORVASTATIN 10 MG TAB PO SCH (21:04)
[2018-09-13] VITALS: BP 124/58
[2018-09-13 04:00] VITALS: BP 119/56
[2018-09-13] MEDS: PIPERACILLIN/TAZOBACTAM SOD 4.5 GM in D5W MINI-BAG PLUS 50 ML IV SCH (04:21)
[2018-09-13] MEDS: IPRATROPIUM 0.5MG/ALBUTEROL 2.5MG INH SOL UD 3ML (DUONEB)(J7620) INH SCH ×4 (04:21→11:25)
[2018-09-13] MEDS: ADVAIR HFA 230/21MCG INHALER INH SCH (06:17)
[2018-09-13 06:58] LABS: HEMOGLOBIN 11.2 g/dl (12.0-15.5); MEAN CORPUSCULAR HEMOGLOBIN 28.6 pg (27.0-33.0); MEAN CORPUSCULAR VOLUME 89.5 fl (80.0-96.0); PLATELET COUNT, AUTOMATED 269 10^3/uL (150-450); RED BLOOD COUNT 3.91 10^6/uL (4.00-5.40); WHITE BLOOD COUNT 10.8 10^3/uL (4.0-10.0)
[2018-09-13] MEDS: OMEPRAZOLE 20 MG CAP PO SCH (08:31)
[2018-09-13] MEDS: THEOPHYLLINE (THEO-24) 100MG SR **CAPSULE PO SCH (08:31)
[2018-09-13] MEDS: guaiFENesin ER 600 MG TAB PO SCH (08:31)
[2018-09-13] MEDS: MULTIVITAMINS/MINERALS THERAP 1 TAB PO SCH (08:32)
[2018-09-13] MEDS: DOCUSATE SODIUM 100 MG CAP PO SCH (08:32)
[2018-09-13] MEDS: ENOXAPARIN 40 MG/0.4 ML SYRINGE (J1650) SC SCH (08:34)
[2018-09-13 08:45] VITALS: BP 133/72
--- NOTE | 2018-09-13 10:59 | DS.PDOC ---
Discharge Summary General Date of Admission Sep 10, 2018 at 16:26 Date of Discharge 09/13/18 Primary Care Physician: Mikal Meek Attending Physician: VAL STERN DO Discharge Summary PROCEDURES PERFORMED DURING STAY: none ADMITTING DIAGNOSES: 1. pneumonia 2. asthma without exacerbation DISCHARGE DIAGNOSES: 1. Haemophilus Influenzae pneumonia 2. Asthma without exacerbation COMPLICATIONS/CHIEF COMPLAINT: Pneumonia. HISTORY OF PRESENT ILLNESS: 68 yo female was in [place] over the past weekend for Granddaughter birthday when she developed 3-4 days of fever, chills, non productive cough. worsening and this AM was short of breath and seen in office, sent to ED. She states no ill contacts. [facility] 4 weeks ago had esophageal dili tation due to GERD, 3 weeks ago saw ENT and stopped all sinus/allergy medications and told to use distilled water saline rinse. [facility] 2 weeks ago had right eye injection for macular degeneration; She has numerous antibiotic allergies and initial antibiotics of doxycycline and rocephin held by pharmacy. Patient states although she is "allergic" to doxacillin with altered mental status, she has taken augmentin before with no rash or ill effects. HOSPITAL COURSE: patient admitted, placed on IV zosyn, mucinex and IVF. She showed improving trend with normalization of WBC. Sputum culture showed HFlu sensitive to PCN. She was changed to oral augmentin and discharge in stable and improved condition DISCHARGE MEDICATIONS: Please see below. ALLERGIES: Please see below. PHYSICAL EXAMINATION ON DISCHARGE: VITAL SIGNS: Please see below. General: pleasant, NAD, AAOx3 HRRR LCTA no Wheeze, mild rhonchi RLL, no rales Ext: no edema LABORATORY DATA: Please see below. IMAGING: CXR with improvement to RLL pneumonia PROGNOSIS: GOOD ACTIVITY: as tolerated. DIET:regular DISCHARGE PLAN: discharge home DISCHARGE INSTRUCTIONS: 1. augmentin x 7 days 2. mucinex x 7 days 3. follow up with PCP in 7-10 days for recheck of lungs DISCHARGE CONDITION: stable TIME SPENT ON DISCHARGE: Greater than 34 minutes. Vital Signs/I&Os Vital Signs Date Time Temp Pulse Resp B/P (MAP) Pulse Ox O2 Delivery O2 Flow Rate FiO2 09/13/18 08:45 99.1 84 18 133/72 (92) 95 09/10/18 18:03 Room Air I&O- Last 24 Hours up to 6 AM 09/13/18 06:00 Intake Total 2510 ml Output Total 3000 ml Balance -490 ml Laboratory Data Labs 24H Laboratory Tests 2 09/13/18 06:34: Nucleated Red Blood Cells % (auto) 0.0 CBC/BMP Laboratory Tests 09/13/18 06:34 Red Blood Count 3.91 L, Mean Corpuscular Volume 89.5, Mean Corpuscular Hemoglobin 28.6, Mean Corpuscular Hemoglobin Concent 32.0, Red Cell Distribution Width 13.3 Microbiology Microbiology 09/10/18 Blood Culture - Preliminary, Resulted No Growth after 48 hours. All Specime... 09/10/18 Blood Culture - Preliminary, Resulted No Growth after 48 hours. All Specime... 09/10/18 Gram Stain - Final, Complete 09/10/18 Sputum Culture - Final, Complete Haemophilus Influenzae 09/10/18 Respiratory Virus Panel (PCR) (DARYL) - Final, Complete Discharge Medications Scheduled Amoxicillin/Potassium Clav (Amox-Clav 875-125 mg Tablet) 1 Each Tablet, 1 TAB PO BID Atorvastatin Calcium (Atorvastatin Calcium) 10 Mg Tab, 10 MG PO QHS, (Reported) Fluconazole (Fluconazole) 150 Mg Tablet, 150 MG PO Q3DP Guaifenesin (Mucinex) 600 Mg Tab.er.12h, 1,200 MG PO BID over the counter Multivitamin (Multivitamins) 1 Each Capsule, 1 CAP PO DAILY, (Reported) Omeprazole (Omeprazole) 40 Mg Cap, 40 MG PO DAILY, (Reported) Salmeterol/Fluticasone (Advair 500-50 Diskus) 28 Puff/Inhaler Aerp, 1 PUFF INH BID, (Reported) Theophylline Anhydrous (Theophylline Anhydrous) 300 Mg Tab.er.12h, 300 MG PO DAILY, (Reported) Scheduled PRN Albuterol Sulf (Albuterol Sulfate) 2.5 Mg/3 Ml Vial.neb, 2.5 MG INH Q4H PRN for SHORTNESS OF BREATH, (Reported) Albuterol Sulfate (Ventolin Hfa) 18 Gm Hfa.aer.ad, 2 PUFF INH Q4H PRN for SHORTNESS OF BREATH, (Reported) Allergies Coded Allergies: Sulfa (Sulfonamide Antibiotics) (Verified Allergy, Intermediate, itchy rash, 09/10/18) bacitracin (Verified Allergy, Intermediate, rash, 09/10/18) cefaclor (Verified Allergy, Intermediate, rash, 09/10/18) clarithromycin (Verified Allergy, Intermediate, rash, 09/10/18) latex (Verified Allergy, Intermediate, rash, 09/10/18) moxifloxacin (Verified Allergy, Intermediate, rash, 09/10/18) phenazopyridine (Verified Allergy, Intermediate, 09/10/18) polymyxin B (Verified Allergy, Intermediate, rash, 09/10/18) tramadol (Verified Allergy, Intermediate, unk, 09/10/18) dicloxacillin (Verified Adverse Reaction, Intermediate, change LOC, 09/10/18) VAL STERN DO Sep 13, 2018 10:59
[2018-09-13] MEDS ORDERED: MUCI600T31 PO (11:07)
[2018-09-13] MEDS ORDERED: FLUC150T PO (11:07)
[2018-09-13] MEDS ORDERED: AMOX875T2 PO (11:07)
--- NOTE | 2018-09-13 11:42 | REP ---
Chest two views HISTORY: Pneumonia Comparison: 09/10/2018 Patchy density is present in the right lower lobe consistent with an infiltrate unchanged compared to the previous study. The left lung is clear. The heart is normal in size. The pulmonary vasculature is normal in appearance. The bony structure is intact. IMPRESSION: Right lower lobe infiltrate unchanged compared to the previous study. Electronically Signed by Nael Ramos MD 09/13/2018 11:34 A
[2018-09-13 15:46] LABS: MYCOPLASMA PNEUMONIAE IgG 955 U/mL (0-99); MYCOPLASMA PNEUMONIAE IgM <770 U/mL (0-769)
== END 2018-09-13 13:05 | disposition home or self-care (01) | DRG 137 ==
LOC: M ED 15:03 → M ED INP 16:26 → M MS5PR 18:10 → M PED 09-11 15:00
PROVIDERS: ADMIT Family Medicine; ATTEND Family Medicine
DX: J14 Pneumonia due to Hemophilus influenzae (principal); H35.30 Unspecified macular degeneration; K21.9 Gastro-esophageal reflux disease without esophagitis; I83.90 Asymptomatic varicose veins of unspecified lower extremity; R01.1 Cardiac murmur, unspecified; J45.909 Unspecified asthma, uncomplicated; Z88.1 Allergy status to other antibiotic agents; Z88.2 Allergy status to sulfonamides; Z88.8 Allergy status to other drugs, medicaments and biological substances; Z88.5 Allergy status to narcotic agent; Z91.040 Latex allergy status

== ENCOUNTER → 2018-09-10 | Outpatient (CLI) | payer BC ==
[~2018-09-10] MED LIST changes: +ALBU83IN INH; +AMOX875T2 PO; +FLUC150T PO; +MUCI600T31 PO; +MULTCAP PO; +THEO300T13 PO; +VENTAER INH
[2018-09-10 14:06] LABS: BASO # 0.1 10^3/uL (0.0-0.2); BASO % 0.4 % (0.0-1.0); HEMATOCRIT 40.7 % (36.0-47.0); HEMOGLOBIN 13.1 g/dl (12.0-15.5); LYMPH # 1.8 10^3/uL (1.5-4.5); LYMPH % 6.4 % (24.0-44.0); MEAN CORPUSCULAR HEMOGLOBIN 28.9 pg (27.0-33.0); MEAN CORPUSCULAR HGB CONC 32.2 g/dl (32.0-36.5); MEAN CORPUSCULAR VOLUME 89.6 fl (80.0-96.0); MONO # 1.9 10^3/uL (0.0-0.8); MONO % 6.8 % (0.0-5.0); NEUTROPHILS # 24.1 10^3/uL (1.8-7.7); NEUTROPHILS % 85.6 % (36.0-66.0); PLATELET COUNT, AUTOMATED 312 10^3/uL (150-450); RED BLOOD COUNT 4.54 10^6/uL (4.00-5.40); WHITE BLOOD COUNT 28.1 10^3/uL (4.0-10.0)
[2018-09-10 14:35] LABS: ALBUMIN 3.1 GM/DL (3.2-5.2); BILIRUBIN,TOTAL 0.7 MG/DL (0.2-1.0); CALCIUM LEVEL 8.5 MG/DL (8.8-10.2); CREATININE FOR GFR 1.01 MG/DL (0.55-1.30); GLOMERULAR FILTRATION RATE 58.4 (>45)
--- NOTE | 2018-09-10 15:46 | REP ---
Chest two views HISTORY: Fever Comparison: 03/30/1980 Patchy density is present in the right lower lobe consistent with an infiltrate. The left lung is clear. The heart is normal in size. The pulmonary vasculature is normal in appearance. The bony structure is intact. IMPRESSION: Right lower lobe infiltrate. Electronically Signed by Nael Ramos MD 09/10/2018 03:38 P
== END ==
LOC: M LAB 12:56
PROVIDERS: ATTEND Nurse Practitioner Family
DX: R91.8 Other nonspecific abnormal finding of lung field (principal); R50.9 Fever, unspecified

== ENCOUNTER → 2018-09-18 | Outpatient (CLI) | payer BC, MEDICARE ==
[~2018-09-18] MED LIST changes: +ALBU83IN INH; +AMOX875T2 PO; +FLUC150T PO; +MUCI600T31 PO; +MULTCAP PO; +THEO300T13 PO; +VENTAER INH
--- NOTE | 2018-09-18 19:04 | REP ---
Chest two views HISTORY: Pneumonia Comparison: 09/13/2018 Patchy density is present in the right lower lobe consistent with an infiltrate that is slightly decreased compared to the previous study. The left lung is clear. The heart is normal in size. The pulmonary vasculature is normal in appearance. The bony structure is intact. IMPRESSION: Right lower lobe infiltrate slightly decreased compared to the previous study. Electronically Signed by Nael Ramos MD 09/18/2018 06:55 P
== END ==
LOC: M WUC 17:06
PROVIDERS: ATTEND Nurse Practitioner Adult Health
DX: J14 Pneumonia due to Hemophilus influenzae (principal)

== ENCOUNTER → 2018-10-14 | Outpatient (REF) | payer BC ==
[2018-10-14 10:33] LABS: HEMOGLOBIN A1c 7.1 %
[2018-10-14 13:55] LABS: CREATININE, URINE 73.3 MG/DL; MALB URINE SIEMENS 6.4 MG/L; MAU/CREAT RATIO 8.7 MCG/MG (0.0-30.0)
== END ==
LOC: M SFHCPLAZ 08:17
PROVIDERS: ATTEND Internal Medicine
DX: E11.9 Type 2 diabetes mellitus without complications (principal)

== ENCOUNTER → 2018-10-22 | Outpatient (CLI) | payer BC ==
[~2018-10-22] MED LIST changes: -OMEP40CA2 PO; +OMEP40CA97 PO
--- NOTE | 2018-10-23 07:14 | REP ---
CHEST, TWO VIEWS: Two views of the chest are performed and compared to a several prior studies, most recently 09/18/2018. There is still some mild persistent infiltrate in the right lateral lung base, with continued improvement since the most recent exam. The left lung demonstrates no infiltrate. The heart is normal in size. The mediastinal silhouette is unchanged. There are degenerative changes of the spine. IMPRESSION: Continued improvement of infiltrate in the right lateral lung base but there is still mild residual. Recommend CT of the chest to further evaluate and exclude underlying neoplasm. Electronically Signed by Reg Lundberg MD 10/24/2018 11:41 A
== END ==
LOC: M WUC 16:41
PROVIDERS: ATTEND Nurse Practitioner Family
DX: R91.8 Other nonspecific abnormal finding of lung field (principal); J06.9 Acute upper respiratory infection, unspecified

== ENCOUNTER → 2018-10-22 | Outpatient (REF) | payer BC ==
[~2018-10-22] MED LIST changes: +OMEP40CA2 PO; -OMEP40CA97 PO
[2018-10-22 17:51] LABS: BASO % 0.3 % (0.0-1.0); EOS # 0.2 10^3/uL (0.0-0.50); EOS % 1.9 % (0.0-3.0); HEMATOCRIT 43.5 % (36.0-47.0); HEMOGLOBIN 13.8 g/dl (12.0-15.5); LYMPH # 2.8 10^3/uL (1.5-4.5); LYMPH % 21.8 % (24.0-44.0); MEAN CORPUSCULAR HEMOGLOBIN 28.2 pg (27.0-33.0); MEAN CORPUSCULAR HGB CONC 31.7 g/dl (32.0-36.5); MONO # 0.8 10^3/uL (0.0-0.8); MONO % 6.5 % (0.0-5.0); NEUTROPHILS # 8.7 10^3/uL (1.8-7.7); NEUTROPHILS % 69.1 % (36.0-66.0); PLATELET COUNT, AUTOMATED 361 10^3/uL (150-450); RED BLOOD COUNT 4.89 10^6/uL (4.00-5.40); WHITE BLOOD COUNT 12.6 10^3/uL (4.0-10.0)
[2018-10-22 18:22] LABS: BLOOD UREA NITROGEN 10 MG/DL (7-18); CALCIUM LEVEL 9.2 MG/DL (8.8-10.2); CARBON DIOXIDE LEVEL 27 MEQ/L (21-32); CHLORIDE LEVEL 103 MEQ/L (98-107); CREATININE FOR GFR 0.98 MG/DL (0.55-1.30); GLOMERULAR FILTRATION RATE > 60.0 (>45); GLUCOSE, FASTING 95 MG/DL (70-100); POTASSIUM SERUM 3.8 MEQ/L (3.5-5.1); SODIUM LEVEL 137 MEQ/L (136-145)
== END ==
LOC: M SFHCPLAZ 15:42
PROVIDERS: ATTEND Nurse Practitioner Family
DX: J06.9 Acute upper respiratory infection, unspecified (principal)

== ENCOUNTER → 2019-03-01 | Outpatient (CLI) | payer BC ==
[~2019-03-01] MED LIST changes: -OMEP40CA2 PO; +OMEP40CA97 PO
[2019-03-01 13:02] LABS: HEMATOCRIT 42.6 % (36.0-47.0); HEMOGLOBIN 12.9 g/dl (12.0-15.5); MEAN CORPUSCULAR HEMOGLOBIN 27.6 pg (27.0-33.0); MEAN CORPUSCULAR HGB CONC 30.3 g/dl (32.0-36.5); MEAN CORPUSCULAR VOLUME 91.2 fl (80.0-96.0); PLATELET COUNT, AUTOMATED 397 10^3/uL (150-450); RED BLOOD COUNT 4.67 10^6/uL (4.00-5.40); WHITE BLOOD COUNT 12.1 10^3/uL (4.0-10.0)
[2019-03-01 13:13] LABS: ALBUMIN 3.2 GM/DL (3.2-5.2); ALT/SGPT 17 U/L (12-78); BILIRUBIN,TOTAL 0.4 MG/DL (0.2-1.0); BLOOD UREA NITROGEN 15 MG/DL (7-18); CARBON DIOXIDE LEVEL 31 MEQ/L (21-32); CHLORIDE LEVEL 107 MEQ/L (98-107); CHOLESTEROL LEVEL 152 MG/DL (<200); CHOLESTEROL RISK RATIO 2.375 (<5); CREATININE FOR GFR 0.98 MG/DL (0.55-1.30); GLOMERULAR FILTRATION RATE > 60.0 (>45); GLUCOSE, FASTING 111 MG/DL (70-100); HDL CHOLESTEROL 64 MG/DL (>40); LDL CHOLESTEROL 72 MG/DL (<100); NON-HDL-C 88 MG/DL; POTASSIUM SERUM 4.4 MEQ/L (3.5-5.1); SODIUM LEVEL 143 MEQ/L (136-145); TOTAL PROTEIN 7.1 GM/DL (6.4-8.2); TRIGLYCERIDES LEVEL 82 MG/DL (<150)
[2019-03-01 13:26] LABS: HEMOGLOBIN A1c 7.3 %
[2019-03-01 13:31] LABS: MALB URINE SIEMENS 5.7 MG/L; MAU/CREAT RATIO 5.3 MCG/MG (0.0-30.0)
== END ==
LOC: M WUC 09:28
PROVIDERS: ATTEND Internal Medicine
DX: E11.9 Type 2 diabetes mellitus without complications (principal); E78.00 Pure hypercholesterolemia, unspecified; J45.909 Unspecified asthma, uncomplicated

== ENCOUNTER → 2019-05-16 | Outpatient (CLI) | payer BC ==
--- NOTE | 2019-05-16 10:17 | REPPI ---
Right knee series: Five views. History: Acute pain in the right knee. Findings: Five views of the right knee demonstrate diffuse soft tissue swelling. There is minimal medial compartment spurring. There is minimal articular spurring of the patella on the lateral radiograph. There is prepatellar soft tissue swelling visible on the lateral film but no evidence of joint effusion. Impression: Extra-articular soft tissue swelling. 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 No acute bony abnormality. Electronically Signed by Boo Burciaga MD 05/16/2019 12:14 P
== END ==
LOC: M PLAIMG 09:24
PROVIDERS: ATTEND Family Medicine
DX: M17.11 Unilateral primary osteoarthritis, right knee (principal); M79.89 Other specified soft tissue disorders

== ENCOUNTER → 2019-09-09 | Outpatient (CLI) | payer BC ==
[2019-09-09 10:25] LABS: ALBUMIN 3.4 GM/DL (3.2-5.2); ALT/SGPT 23 U/L (12-78); BILIRUBIN,TOTAL 0.6 MG/DL (0.2-1.0); BLOOD UREA NITROGEN 14 MG/DL (7-18); CALCIUM LEVEL 8.9 MG/DL (8.8-10.2); CARBON DIOXIDE LEVEL 29 MEQ/L (21-32); CHLORIDE LEVEL 106 MEQ/L (98-107); CREATININE FOR GFR 0.97 MG/DL (0.55-1.30); GLOMERULAR FILTRATION RATE > 60.0 (>45); GLUCOSE, FASTING 138 MG/DL (70-100); MAGNESIUM LEVEL 2.2 MG/DL (1.8-2.4); POTASSIUM SERUM 4.3 MEQ/L (3.5-5.1); SODIUM LEVEL 141 MEQ/L (136-145)
[2019-09-09 10:45] LABS: HEMOGLOBIN A1c 7.7 %
== END ==
LOC: M WUC 08:10
PROVIDERS: ATTEND Internal Medicine
DX: E11.9 Type 2 diabetes mellitus without complications (principal); K22.0 Achalasia of cardia; Z13.29 Encounter for screening for other suspected endocrine disorder

== ENCOUNTER → 2019-10-22 | Outpatient (CLI) | payer BC ==
[~2019-10-22] MED LIST changes: +ASCO250T20 PO; +METF-839 PO; +OCUVCAP2 PO
--- NOTE | 2019-10-22 11:39 | REPMRS ---
Patient History The patient states she has not had a clinical breast exam in over a year. No known family history of cancer. 3D TOMOSYNTHESIS WAS PERFORMED. [facility] lifetime risk for breast cancer is 5.0%. VOLPARA DENSITY B. Digital Woman Screen Mammo: October 22, 2019 - Exam #: [id number] Bilateral CC and MLO view(s) were taken. Technologist: Sakina Jarvis, Technologist Prior study comparison: April 27, 2017, digital woman screen mammo performed at [facility]. July 14, 2014, digital woman screen mammo performed at [facility]. FINDINGS: There are scattered fibroglandular densities. There has been no change in the appearance of the mammogram from the prior studies. There is a mild amount of residual fibroglandular tissue which is fairly symmetric. There is no interval development of dominant mass, architectural distortion, or clustered microcalcification suggestive of malignancy. Assessment: BI-RADS/ACR category 1 mammogram. Negative Mammogram. Recommendation Routine screening mammogram in 1 year (for women over age 40). This mammogram was interpreted with the aid of an FDA-approved computer-aided dectection system. Electronically Signed By: Reg Lundberg MD 10/22/19 [id number]
--- NOTE | 2019-11-26 10:17 | DEXA ---
AP SPINE L1 - L4 1.125 -0.6 1.1 LT FEMUR TOTAL 0.879 -1.0 0.3 LT NECK 0.821 -1.6 0.0 RT FEMUR TOTAL 0.818 -1.5 -0.2 RT NECK 0.811 -1.6 -0.1 TOTAL BODY TOTAL OTHER COMMENTS: Normal Bone Densitometry of the spine. There is low bone density of the hips. The increased density of the spine does not represent a significant change. The increased density of the left hip does not represent a significant change. The decreased density of the right hip does represent a significant change. The density of the spine has decreased 4.7% since the initial exam on 02/02/2006. The increased 1.9% since the most recent exam on 04/27/2017. The density of the left hip has decreased 19.7% since the initial exam on 02/02/2006. The density of the left hip has increased 0.5% since the most recent exam on 04/27/2017. The density of the right hip has decreased 25.6% since the initial exam on 02/02/2006. The density of the right hip has decreased 7.0% since the most recent exam on 04/26/2017. FOLLOW-UP: Recommendation for the next bone density exam: 2 years. ABBIE
== END ==
LOC: M WHC 09:56
PROVIDERS: ATTEND Internal Medicine
DX: Z12.31 Encounter for screening mammogram for malignant neoplasm of breast (principal); Z13.820 Encounter for screening for osteoporosis; Z92.241 Personal history of systemic steroid therapy

== ENCOUNTER → 2019-12-22 | Outpatient (CLI) | payer BC ==
[2019-12-22 13:41] LABS: ALBUMIN 3.5 GM/DL (3.2-5.2); ALT/SGPT 19 U/L (12-78); BILIRUBIN,TOTAL 0.6 MG/DL (0.2-1.0); BLOOD UREA NITROGEN 14 MG/DL (7-18); CALCIUM LEVEL 9.3 MG/DL (8.8-10.2); CARBON DIOXIDE LEVEL 27 MEQ/L (21-32); CHLORIDE LEVEL 104 MEQ/L (98-107); CHOLESTEROL LEVEL 175 MG/DL (<200); CHOLESTEROL RISK RATIO 2.302 (<5); CREATININE FOR GFR 0.93 MG/DL (0.55-1.30); GLOMERULAR FILTRATION RATE > 60.0 (>45); GLUCOSE, FASTING 127 MG/DL (70-100); HDL CHOLESTEROL 76 MG/DL (>40); LDL CHOLESTEROL 83 MG/DL (<100); NON-HDL-C 99 MG/DL; POTASSIUM SERUM 4.1 MEQ/L (3.5-5.1); SODIUM LEVEL 139 MEQ/L (136-145); TOTAL PROTEIN 7.4 GM/DL (6.4-8.2); TRIGLYCERIDES LEVEL 82 MG/DL (<150)
[2019-12-22 14:32] LABS: HEMOGLOBIN A1c 7.4 %
== END ==
LOC: M PLALAB 12:06
PROVIDERS: ATTEND Nurse Practitioner Adult Health
DX: E11.9 Type 2 diabetes mellitus without complications (principal); E78.00 Pure hypercholesterolemia, unspecified

== ENCOUNTER → 2020-02-21 | Outpatient (CLI) | payer BC | LOC: M LABSMTC 10:59 | PROVIDERS: ATTEND Anesthesiology | DX: Z01.812 Encounter for preprocedural laboratory examination (principal); Z20.828 Contact with and (suspected) exposure to other viral communicable diseases ==

== ENCOUNTER 2020-02-26 06:46 | Day surgery (SDC) | payer BC ==
[~2020-02-26] VITALS: Ht 165.1 cm; Wt 95.3 kg
[~2020-02-26 06:46] MED LIST changes: +BSS IRR 500ML/OMIDRIA 4ML IRR BAG (OR ONLY) (J1097 PER ML) As Ordered ONE; +CEFUROXIME 1MG/0.1ML INTRACAMERAL INJ As Ordered ONE; +DUOVISC (0.50ML VISCOAT/0.55ML PROVISC) OPHTH KIT As Ordered ONE; +POVIDONE-IODINE 5% OPHTH PREP SOL 30ML As Ordered ONE
[2020-02-26] MEDS ORDERED: PROPARACAINE 0.5% OPHTH SOL 15ML OS ONE (07:00)
[2020-02-26] MEDS ORDERED: PHENYLEPHRINE 2.5% OPHTH SOL 2ML OS ONE (07:00)
[2020-02-26] MEDS ORDERED: TROPICAMIDE 1% OPHTH SOLN 2ML OS ONE (07:00)
[2020-02-26] MEDS ORDERED: fentaNYL 100 MCG/2 ML INJECTION (J3010) As Ordered ONE (07:20)
[2020-02-26] MEDS ORDERED: MIDAZOLAM INJ 2MG/2ML VIAL (J2250 PER 1MG) As Ordered ONE (07:20)
[2020-02-26] MEDS ORDERED: DUOVISC (0.50ML VISCOAT/0.55ML PROVISC) OPHTH KIT As Ordered ONE (08:36)
[2020-02-26 09:30] VITALS: BP 111/59
== END 2020-02-26 09:50 | disposition home or self-care (01) ==
LOC: M SDC 06:46
PROVIDERS: ATTEND Ophthalmology
DX: H25.12 Age-related nuclear cataract, left eye (principal); E11.9 Type 2 diabetes mellitus without complications; E78.5 Hyperlipidemia, unspecified; M12.9 Arthropathy, unspecified; J45.909 Unspecified asthma, uncomplicated; K22.0 Achalasia of cardia; K21.9 Gastro-esophageal reflux disease without esophagitis; R01.1 Cardiac murmur, unspecified; Z78.0 Asymptomatic menopausal state; Z79.84 Long term (current) use of oral hypoglycemic drugs; Z79.899 Other long term (current) drug therapy; Z85.828 Personal history of other malignant neoplasm of skin; Z87.81 Personal history of (healed) traumatic fracture; Z88.1 Allergy status to other antibiotic agents; Z88.2 Allergy status to sulfonamides; Z88.5 Allergy status to narcotic agent; Z88.8 Allergy status to other drugs, medicaments and biological substances; Z91.040 Latex allergy status
CPT/HCPCS: 66984; 92015; J2250; J3010

== ENCOUNTER → 2020-03-18 | Outpatient (CLI) | payer BC ==
[~2020-03-18] MED LIST changes: -BSS IRR 500ML/OMIDRIA 4ML IRR BAG (OR ONLY) (J1097 PER ML) As Ordered ONE; -CEFUROXIME 1MG/0.1ML INTRACAMERAL INJ As Ordered ONE; -DUOVISC (0.50ML VISCOAT/0.55ML PROVISC) OPHTH KIT As Ordered ONE; -POVIDONE-IODINE 5% OPHTH PREP SOL 30ML As Ordered ONE
[2020-03-18 10:51] LABS: HEMATOCRIT 41.4 % (36.0-47.0); HEMOGLOBIN 12.8 g/dl (12.0-15.5); MEAN CORPUSCULAR HEMOGLOBIN 27.5 pg (27.0-33.0); MEAN CORPUSCULAR HGB CONC 30.9 g/dl (32.0-36.5); PLATELET COUNT, AUTOMATED 346 10^3/uL (150-450); RED BLOOD COUNT 4.65 10^6/uL (4.00-5.40); WHITE BLOOD COUNT 10.6 10^3/uL (4.0-10.0)
[2020-03-18 11:11] LABS: HEMOGLOBIN A1c 6.7 %
[2020-03-18 11:17] LABS: ALBUMIN 3.5 GM/DL (3.2-5.2); ALT/SGPT 19 U/L (12-78); BILIRUBIN,TOTAL 0.4 MG/DL (0.2-1.0); BLOOD UREA NITROGEN 13 MG/DL (7-18); CALCIUM LEVEL 9.1 MG/DL (8.8-10.2); CARBON DIOXIDE LEVEL 29 MEQ/L (21-32); CHLORIDE LEVEL 108 MEQ/L (98-107); CHOLESTEROL LEVEL 157 MG/DL (<200); CHOLESTEROL RISK RATIO 2.308 (<5); CREATININE FOR GFR 0.91 MG/DL (0.55-1.30); GLOMERULAR FILTRATION RATE > 60.0 (>45); GLUCOSE, FASTING 122 MG/DL (70-100); HDL CHOLESTEROL 68 MG/DL (>40); LDL CHOLESTEROL 70 MG/DL (<100); NON-HDL-C 89 MG/DL; POTASSIUM SERUM 4.7 MEQ/L (3.5-5.1); SODIUM LEVEL 142 MEQ/L (136-145); TOTAL PROTEIN 7.1 GM/DL (6.4-8.2); TRIGLYCERIDES LEVEL 93 MG/DL (<150)
[2020-03-18 11:24] LABS: MALB URINE SIEMENS 21.1 MG/L; MAU/CREAT RATIO 15.9 MCG/MG (0.0-30.0)
== END ==
LOC: M WUC 08:04
PROVIDERS: ATTEND Internal Medicine
DX: E11.9 Type 2 diabetes mellitus without complications (principal); E78.00 Pure hypercholesterolemia, unspecified; J45.41 Moderate persistent asthma with (acute) exacerbation

== ENCOUNTER → 2020-09-18 | Outpatient (CLI) | payer BC ==
[2020-09-18 11:18] LABS: HEMOGLOBIN A1c 6.6 %
[2020-09-18 11:32] LABS: ALBUMIN 3.4 GM/DL (3.2-5.2); ALT/SGPT 16 U/L (12-78); BILIRUBIN,TOTAL 0.5 MG/DL (0.2-1.0); BLOOD UREA NITROGEN 14 MG/DL (7-18); CALCIUM LEVEL 9.2 MG/DL (8.8-10.2); CARBON DIOXIDE LEVEL 29 MEQ/L (21-32); CHLORIDE LEVEL 107 MEQ/L (98-107); CHOLESTEROL LEVEL 148 MG/DL (<200); CHOLESTEROL RISK RATIO 2.176 (<5); CREATININE FOR GFR 0.89 MG/DL (0.55-1.30); GLOMERULAR FILTRATION RATE > 60.0 (>45); GLUCOSE, FASTING 100 MG/DL (70-100); HDL CHOLESTEROL 68 MG/DL (>40); LDL CHOLESTEROL 67 MG/DL (<100); NON-HDL-C 80 MG/DL; POTASSIUM SERUM 4.4 MEQ/L (3.5-5.1); SODIUM LEVEL 143 MEQ/L (136-145); TRIGLYCERIDES LEVEL 66 MG/DL (<150)
[2020-09-20 11:48] LABS: HEPATITIS C VIRUS ABY INDEX < 0.0 INDEX (<0.8)
== END ==
LOC: M LAB 09:33
PROVIDERS: ATTEND Internal Medicine
DX: E78.00 Pure hypercholesterolemia, unspecified (principal); E11.9 Type 2 diabetes mellitus without complications; Z86.010 Personal history of colon polyps; Z11.59 Encounter for screening for other viral diseases

== ENCOUNTER → 2021-03-17 | Outpatient (CLI) | payer BC ==
[~2021-03-17] MED LIST changes: +OMEP40CA4 PO; -OMEP40CA97 PO
[2021-03-17 10:12] LABS: BASO # 0.1 10^3/uL (0.0-0.2); BASO % 0.9 % (0.0-1.0); EOS # 0.5 10^3/uL (0.0-0.5); EOS % 5.4 % (0.0-3.0); HEMATOCRIT 40.6 % (36.0-47.0); HEMOGLOBIN 12.6 g/dl (12.0-15.5); LYMPH # 3.3 10^3/uL (1.5-5.0); LYMPH % 32.7 % (24.0-44.0); MEAN CORPUSCULAR HEMOGLOBIN 27.1 pg (27.0-33.0); MEAN CORPUSCULAR VOLUME 87.3 fl (80.0-96.0); MONO # 0.7 10^3/uL (0.0-0.8); MONO % 7.1 % (2.0-8.0); NEUTROPHILS # 5.4 10^3/uL (1.5-8.5); NEUTROPHILS % 53.4 % (36.0-66.0); PLATELET COUNT, AUTOMATED 390 10^3/uL (150-450); RED BLOOD COUNT 4.65 10^6/uL (4.00-5.40); WHITE BLOOD COUNT 10.1 10^3/uL (4.0-10.0)
[2021-03-17 10:39] LABS: CREATININE, URINE 84.9 MG/DL; MALB URINE SIEMENS 11.8 MG/L; MAU/CREAT RATIO 13.8 MCG/MG (0.0-30.0)
[2021-03-17 10:47] LABS: ALBUMIN 3.4 GM/DL (3.2-5.2); ALT/SGPT 18 U/L (12-78); BILIRUBIN,TOTAL 0.4 MG/DL (0.2-1.0); BLOOD UREA NITROGEN 15 MG/DL (7-18); CALCIUM LEVEL 9.2 MG/DL (8.8-10.2); CARBON DIOXIDE LEVEL 31 MEQ/L (21-32); CHLORIDE LEVEL 107 MEQ/L (98-107); CREATININE FOR GFR 0.97 MG/DL (0.55-1.30); GLOMERULAR FILTRATION RATE > 60.0 (>45); GLUCOSE, FASTING 119 MG/DL (70-100); POTASSIUM SERUM 4.3 MEQ/L (3.5-5.1); SODIUM LEVEL 143 MEQ/L (136-145); TOTAL PROTEIN 7.5 GM/DL (6.4-8.2)
[2021-03-17 14:04] LABS: HEMOGLOBIN A1c 6.6 %
[2021-03-18 17:07] LABS: Lyme Disease IgG/IgM Antibodie <0.91 ISR (0.00-0.90); Lyme Disease IgM Ab Quantitati <0.80 index (0.00-0.79)
== END ==
LOC: M WUC 07:58
PROVIDERS: ATTEND Internal Medicine
DX: E11.9 Type 2 diabetes mellitus without complications (principal); J45.909 Unspecified asthma, uncomplicated; W57.XXXD Bitten or stung by nonvenomous insect and other nonvenomous arthropods, subsequent encounter; E78.00 Pure hypercholesterolemia, unspecified

== ENCOUNTER → 2021-06-13 | Outpatient (CLI) | payer BC ==
[~2021-06-13] MED LIST changes: -FLUC150T PO; +FLUC150T9 PO; +ISOVUE-300 61% 50ML VIAL As Ordered ONE; +LIDOCAINE 1% MDV 20ML VIAL As Ordered ONE; +TRIAMCINOLONE ACETONIDE SUSP 40 MG/ML VIAL (J3301) As Ordered ONE
== END ==
LOC: M RADPRO 10:59
PROVIDERS: ATTEND Orthopaedic Surgery
DX: M70.61 Trochanteric bursitis, right hip (principal)
CPT/HCPCS: 20610; 77002; J3301; Q9967

== ENCOUNTER → 2021-09-22 | Outpatient (CLI) | payer BC ==
[~2021-09-22] MED LIST changes: +ALBU2.5V10 INH; -ALBU83IN INH; -ISOVUE-300 61% 50ML VIAL As Ordered ONE; -LIDOCAINE 1% MDV 20ML VIAL As Ordered ONE; -TRIAMCINOLONE ACETONIDE SUSP 40 MG/ML VIAL (J3301) As Ordered ONE
[2021-09-22 08:34] LABS: ALBUMIN 3.2 GM/DL (3.2-5.2); BILIRUBIN,TOTAL 0.5 MG/DL (0.2-1.0); CALCIUM LEVEL 9.5 MG/DL (8.8-10.2); CHOLESTEROL RISK RATIO 2.833 (<5); CREATININE FOR GFR 0.99 MG/DL (0.55-1.30); GLOMERULAR FILTRATION RATE 59.2 (>45); POTASSIUM SERUM 4.2 MEQ/L (3.5-5.1); TOTAL PROTEIN 6.8 GM/DL (6.4-8.2)
[2021-09-22 08:50] LABS: HEMOGLOBIN A1c 6.6 %
== END ==
LOC: M LAB 06:58
PROVIDERS: ATTEND Internal Medicine
DX: E11.9 Type 2 diabetes mellitus without complications (principal); E78.00 Pure hypercholesterolemia, unspecified

== ENCOUNTER → 2021-12-07 | Outpatient (CLI) | payer BC ==
[~2021-12-07] MED LIST changes: +ISOVUE-300 61% 50ML VIAL As Ordered ONE; +LIDOCAINE 1% MDV 20ML VIAL As Ordered ONE; +TRIAMCINOLONE ACETONIDE SUSP 40 MG/ML VIAL (J3301) As Ordered ONE
== END ==
LOC: M RADPRO 12:27
PROVIDERS: ATTEND Orthopaedic Surgery
DX: M16.11 Unilateral primary osteoarthritis, right hip (principal)
CPT/HCPCS: 20610; 76000; J3301; Q9967

== ENCOUNTER → 2021-12-30 | Outpatient (CLI) | payer BC ==
[~2021-12-30] MED LIST changes: -ISOVUE-300 61% 50ML VIAL As Ordered ONE; -LIDOCAINE 1% MDV 20ML VIAL As Ordered ONE; -TRIAMCINOLONE ACETONIDE SUSP 40 MG/ML VIAL (J3301) As Ordered ONE
== END ==
LOC: M SOG 08:55
PROVIDERS: ATTEND Orthopaedic Surgery Adult Reconstructive Orthopaedic Surgery
DX: M16.0 Bilateral primary osteoarthritis of hip (principal)

== ENCOUNTER → 2022-03-14 | Outpatient (CLI) | payer BC ==
[~2022-03-14] MED LIST changes: +BUPIVACAINE HCL 0.5% 30ML VIAL As Ordered ONE; +ISOVUE-300 61% 50ML VIAL As Ordered ONE; +LIDOCAINE 1% MDV 20ML VIAL As Ordered ONE; +methylPREDNISolone 80MG/ML SUSP 1ML VIAL As Ordered ONE
== END ==
LOC: M RAD 12:34
PROVIDERS: ATTEND Orthopaedic Surgery Adult Reconstructive Orthopaedic Surgery
DX: M16.11 Unilateral primary osteoarthritis, right hip (principal)

== ENCOUNTER → 2022-07-05 | Outpatient (CLI) | payer BC, OTHER ==
[~2022-07-05] MED LIST changes: +BUPIVACAINE HCL 0.5% 10ML VIAL ONE; -BUPIVACAINE HCL 0.5% 30ML VIAL As Ordered ONE; +ISOVUE-300 61% 100ML VIAL ONE; -ISOVUE-300 61% 50ML VIAL As Ordered ONE; -LIDOCAINE 1% MDV 20ML VIAL As Ordered ONE; +LIDOCAINE 1% MDV 20ML VIAL ONE; -methylPREDNISolone 80MG/ML SUSP 1ML VIAL As Ordered ONE; +methylPREDNISolone 80MG/ML SUSP 1ML VIAL ONE
== END ==
LOC: M PLAIMG 13:24
PROVIDERS: ATTEND Orthopaedic Surgery
DX: M16.0 Bilateral primary osteoarthritis of hip (principal)
CPT/HCPCS: 20610; 77002; J1040; Q9967; S0020

== ENCOUNTER → 2022-07-28 | Outpatient (CLI) | payer OTHER ==
[~2022-07-28] MED LIST changes: -BUPIVACAINE HCL 0.5% 10ML VIAL ONE; -ISOVUE-300 61% 100ML VIAL ONE; -LIDOCAINE 1% MDV 20ML VIAL ONE; -methylPREDNISolone 80MG/ML SUSP 1ML VIAL ONE
== END ==
LOC: M SOG 07:53
PROVIDERS: ATTEND Orthopaedic Surgery
DX: M25.551 Pain in right hip (principal); M16.11 Unilateral primary osteoarthritis, right hip

== ENCOUNTER → 2022-08-09 | Outpatient (CLI) | payer OTHER ==
[2022-08-09 10:54] LABS: HEMATOCRIT 40.4 % (36.0-47.0); HEMOGLOBIN 13.1 g/dl (12.0-15.5); MEAN CORPUSCULAR HEMOGLOBIN 28.9 pg (27.0-33.0); MEAN CORPUSCULAR HGB CONC 32.4 g/dl (32.0-36.5); PLATELET COUNT, AUTOMATED 372 10^3/uL (150-450); RED BLOOD COUNT 4.54 10^6/uL (4.00-5.40); WHITE BLOOD COUNT 16.6 10^3/uL (4.0-10.0)
[2022-08-09 11:22] LABS: CREATININE, URINE 114.8 MG/DL
[2022-08-09 11:23] LABS: MALB URINE SIEMENS < 3.0 MG/L; MAU/CREAT RATIO 2.6 MCG/MG (0.0-30.0)
[2022-08-09 11:24] LABS: ALBUMIN 3.7 G/DL (3.2-5.2); ALKALINE PHOSPHATASE 141 U/L (46-116); ALT/SGPT 15 U/L (7.0-40); AST/SGOT 18 U/L (<34); BILIRUBIN,TOTAL 0.6 MG/DL (0.3-1.2); BLOOD UREA NITROGEN 17 MG/DL (9-23); CARBON DIOXIDE LEVEL 30 MMOL/L (20-31); CHLORIDE LEVEL 104 MMOL/L (98-107); CHOLESTEROL LEVEL 157 MG/DL (<200); CHOLESTEROL RISK RATIO 2.33 (<5); CREATININE FOR GFR 0.95 MG/DL (0.55-1.30); GLOMERULAR FILTRATION RATE > 60.0 (>39); GLUCOSE, FASTING 117 MG/DL (74-106); HDL CHOLESTEROL 67.1 MG/DL (>40); LDL CHOLESTEROL 76.5 MG/DL (<100); NON-HDL-C 89.9 MG/DL; POTASSIUM SERUM 4.2 MMOL/L (3.5-5.1); SODIUM LEVEL 139 MMOL/L (136-145); TOTAL PROTEIN 7.1 G/DL (5.7-8.2); TRIGLYCERIDES LEVEL 67 MG/DL (<150)
[2022-08-09 11:26] LABS: THYROID STIMULATING HORMONE 1.894 uIU/ML (0.55-4.78); VITAMIN B12 LEVEL 502 PG/ML (211-911)
[2022-08-09 11:27] LABS: FREE T4 1.12 NG/DL (0.89-1.76)
[2022-08-09 11:31] LABS: HEMOGLOBIN A1c 6.5 % (4.0-6.0)
== END ==
LOC: M WUC 08:05
PROVIDERS: ATTEND Internal Medicine Hematology
DX: D68.61 Antiphospholipid syndrome (principal); E11.9 Type 2 diabetes mellitus without complications

== ENCOUNTER → 2022-08-10 | Outpatient (CLI) | payer OTHER ==
[2022-08-10 13:34] LABS: BASO # 0.1 10^3/uL (0.0-0.2); BASO % 0.6 % (0.0-1.0); EOS # 0.4 10^3/uL (0.0-0.5); EOS % 2.4 % (0.0-3.0); HEMATOCRIT 39.7 % (36.0-47.0); HEMOGLOBIN 12.6 g/dl (12.0-15.5); LYMPH # 3.4 10^3/uL (1.5-5.0); LYMPH % 22.3 % (24.0-44.0); MEAN CORPUSCULAR HEMOGLOBIN 28.3 pg (27.0-33.0); MEAN CORPUSCULAR HGB CONC 31.7 g/dl (32.0-36.5); MEAN CORPUSCULAR VOLUME 89.2 fl (80.0-96.0); MONO % 6.8 % (2.0-8.0); NEUTROPHILS # 10.3 10^3/uL (1.5-8.5); NEUTROPHILS % 67.2 % (36.0-66.0); PLATELET COUNT, AUTOMATED 361 10^3/uL (150-450); RED BLOOD COUNT 4.45 10^6/uL (4.00-5.40); WHITE BLOOD COUNT 15.2 10^3/uL (4.0-10.0)
== END ==
LOC: M PLALAB 11:05
PROVIDERS: ATTEND Internal Medicine Hematology
DX: D72.829 Elevated white blood cell count, unspecified (principal)

== ENCOUNTER 2022-08-29 07:38 | Outpatient (RCR) | payer OTHER | END 2022-09-06 | LOC: M PT 07:38 | PROVIDERS: ATTEND Orthopaedic Surgery | DX: M16.0 Bilateral primary osteoarthritis of hip (principal) ==

== ENCOUNTER → 2022-09-19 | Outpatient (REF) | payer OTHER | LOC: M SFHCWAGY 08:44 | PROVIDERS: ATTEND Nurse Practitioner Family | DX: Z12.4 Encounter for screening for malignant neoplasm of cervix (principal) | CPT/HCPCS: 87624; G0123 ==

== ENCOUNTER → 2022-09-19 | Outpatient (CLI) | payer OTHER | LOC: M WHC 15:59 | PROVIDERS: ATTEND Nurse Practitioner Family | DX: Z12.31 Encounter for screening mammogram for malignant neoplasm of breast (principal) ==

== ENCOUNTER 2022-10-31 06:18 | Observation (INO) | payer OTHER ==
[2022-10-31] VITALS (8 sets, daily range): BP systolic 107–132; BP diastolic 55–83; TEMP 97.5–98.6; O2SAT 91–100
[~2022-10-31] VITALS: Ht 165.1 cm; Wt 103.2 kg
[~2022-10-31 06:18] MED LIST changes: +MONT10TA97 PO; +ROPIVA 100MG/KETOR 15MG/EPINEPHRINE 0.3MG IN NS 50ML SYRINGE PA ONE; +THEO300T33 PO; +THERTAB52 PO; +TRANEXAMIC ACID INJection 1,000 MG in NS 100 ML IV ONE; +ceFAZolin SOD 2 GM in IV 1 EA IV ONE; +oxyCODONE 5MG TAB PO ONE
[2022-10-31] MEDS ORDERED: LR 1,000 ML IV SCH (06:50)
[2022-10-31] MEDS ORDERED: MIDAZOLAM INJ 2MG/2ML VIAL As Ordered ONE (07:10)
[2022-10-31] MEDS ORDERED: ACETAMINOPHEN 1000MG 100ML IV BAG As Ordered ONE (07:10)
[2022-10-31] MEDS ORDERED: propofoL 200 MG/20 ML VIAL As Ordered ONE (07:10)
[2022-10-31] MEDS ORDERED: LIDOCAINE 2% 100MG/5ML SDV (FOR ANES.) As Ordered ONE (07:10)
[2022-10-31] MEDS ORDERED: ONDANSETRON 4MG 2ML VIAL As Ordered ONE (07:10)
[2022-10-31] MEDS ORDERED: fentaNYL 100 MCG/2 ML INJECTION As Ordered ONE ×2 (07:10→12:40)
[2022-10-31] MEDS ORDERED: TRANEXAMIC ACID 100 MG/ML 10ML VIAL As Ordered ONE (07:24)
[2022-10-31] MEDS ORDERED: MUPI2OI NARES (07:37)
[2022-10-31] MEDS ORDERED: METF750T36 PO (07:37)
[2022-10-31] MEDS ORDERED: FLUT15.819 NARES (07:37)
[2022-10-31] MEDS ORDERED: HOME MED LIST COMPLETE! XX SCH (07:50)
[2022-10-31] MEDS ORDERED: VANCOMYCIN 500MG/10ML VIAL As Ordered ONE (07:51)
[2022-10-31 07:52] LABS: BLOOD UREA NITROGEN 14 MG/DL (9-23); CALCIUM LEVEL 9.1 MG/DL (8.3-10.6); CARBON DIOXIDE LEVEL 29 MMOL/L (20-31); CHLORIDE LEVEL 107 MMOL/L (98-107); CREATININE FOR GFR 0.89 MG/DL (0.55-1.30); GLOMERULAR FILTRATION RATE > 60.0 (>39); GLUCOSE, FASTING 127 MG/DL (74-106); POTASSIUM SERUM 4.1 MMOL/L (3.5-5.1); SODIUM LEVEL 142 MMOL/L (136-145)
[2022-10-31] MEDS ORDERED: KETAMINE HCL 200MG/20ML VIAL As Ordered ONE (08:32)
[2022-10-31] MEDS ORDERED: ePHEDrine SULFATE 25 MG/5 ML(5MG/ML) SYRINGE As Ordered ONE (08:48)
[2022-10-31] MEDS ORDERED: HYDROmorphone HCL 2MG/ML 1ML VIAL As Ordered ONE (08:53)
[2022-10-31] MEDS ORDERED: MORPHINE 4 MG/ML 1ML VIAL IV PRN (11:45)
[2022-10-31] MEDS ORDERED: SENNA 8.6 MG TAB (SENOKOT) PO PRN (11:45)
[2022-10-31] MEDS ORDERED: ALBUTEROL 90 MCG/ACT 8GM HFA INHALER INH PRN (12:00)
[2022-10-31] MEDS ORDERED: OMEPRAZOLE 20MG CAP PO PRN (12:00)
[2022-10-31] MEDS ORDERED: GLUCAGON INJ 1MG VIAL SC PRN (12:00)
[2022-10-31] MEDS: INSULIN LISPRO (NovoLOG) PER UNIT SC SCH ×3 (12:00→21:00)
[2022-10-31] MEDS ORDERED: DEXTROSE 50% 50ML SYRINGE IV PRN (12:00)
[2022-10-31] MEDS ORDERED: GLUCOSE 4GM CHEW TABLET PO PRN (12:00)
[2022-10-31] MEDS ORDERED: MORPHINE 2 MG/ML 1ML VIAL IV PRN (12:40)
[2022-10-31] MEDS ORDERED: oxyCODONE 5MG TAB PO PRN (12:40)
[2022-10-31] MEDS ORDERED: ONDANSETRON 4MG 2ML VIAL IV PRN (12:40)
[2022-10-31] MEDS: fentaNYL 100 MCG/2 ML INJECTION IV PRN ×3 (12:45→13:06)
[2022-10-31] MEDS: MONTELUKAST 10 MG TAB PO SCH (15:35)
[2022-10-31] MEDS: ATORVASTATIN 10 MG TAB PO SCH (15:35)
[2022-10-31] MEDS: ceFAZolin SOD 1 GM in D5W MINI-BAG PLUS 50 ML IV SCH (15:35)
[2022-11-01] MEDS: ceFAZolin SOD 1 GM in D5W MINI-BAG PLUS 50 ML IV SCH ×2 (00:38→07:58)
[2022-11-01] MEDS: ACETAMINOPHEN TAB 650MG DOSE (2X325MG) PO PRN ×3 (00:42→23:32)
[2022-11-01 02:00] VITALS: BP 108/55; TEMP 97.9; O2SAT 97
[2022-11-01 06:00] VITALS: BP 119/63; TEMP 97.9; O2SAT 95
[2022-11-01 06:28] LABS: HEMATOCRIT 31.2 % (36.0-47.0); HEMOGLOBIN 9.5 g/dl (12.0-15.5); MEAN CORPUSCULAR HEMOGLOBIN 26.8 pg (27.0-33.0); MEAN CORPUSCULAR HGB CONC 30.4 g/dl (32.0-36.5); MEAN CORPUSCULAR VOLUME 87.9 fl (80.0-96.0); PLATELET COUNT, AUTOMATED 288 10^3/uL (150-450); RED BLOOD COUNT 3.55 10^6/uL (4.00-5.40); WHITE BLOOD COUNT 14.6 10^3/uL (4.0-10.0)
[2022-11-01 07:42] LABS: CALCIUM LEVEL 7.8 MG/DL (8.3-10.6); CREATININE FOR GFR 0.98 MG/DL (0.55-1.30); GLOMERULAR FILTRATION RATE 59.7 (>39); POTASSIUM SERUM 4.4 MMOL/L (3.5-5.1)
[2022-11-01] MEDS: INSULIN LISPRO (NovoLOG) PER UNIT SC SCH ×4 (07:59→21:00)
[2022-11-01] MEDS: oxyCODONE 5MG TAB PO PRN ×4 (08:00→20:23)
[2022-11-01] MEDS: ATORVASTATIN 10 MG TAB PO SCH (08:00)
[2022-11-01] MEDS: MONTELUKAST 10 MG TAB PO SCH (08:00)
[2022-11-01] MEDS ORDERED: XARE10TA PO (08:42)
[2022-11-01] MEDS ORDERED: SENN-188 PO (08:42)
[2022-11-01] MEDS ORDERED: OXYC1TAB23 PO (08:43)
[2022-11-01 10:00] VITALS: BP 119/67; TEMP 98
[2022-11-01] MEDS: ALBUTEROL SULFATE 2.5MG/0.5ML INH NEB SOLN INH PRN ×3 (10:45→19:46)
[2022-11-01 14:37] VITALS: BP 114/60; TEMP 98.1; O2SAT 94
[2022-11-01] MEDS: RIVAROXABAN 10MG TAB (XARELTO) PO SCH (17:02)
[2022-11-01 21:19] VITALS: BP 104/55; TEMP 98.8; O2SAT 94
[2022-11-02] MEDS ORDERED: KETOROLAC 30 MG/ML 1ML VIAL IV ONE
[2022-11-02 05:50] LABS: HEMATOCRIT 27.8 % (36.0-47.0); HEMOGLOBIN 8.8 g/dl (12.0-15.5); MEAN CORPUSCULAR HEMOGLOBIN 27.8 pg (27.0-33.0); MEAN CORPUSCULAR HGB CONC 31.7 g/dl (32.0-36.5); MEAN CORPUSCULAR VOLUME 87.7 fl (80.0-96.0); PLATELET COUNT, AUTOMATED 238 10^3/uL (150-450); RED BLOOD COUNT 3.17 10^6/uL (4.00-5.40); WHITE BLOOD COUNT 13.3 10^3/uL (4.0-10.0)
[2022-11-02 06:05] VITALS: BP 108/58; TEMP 97.9; O2SAT 96
[2022-11-02 06:16] LABS: BLOOD UREA NITROGEN 14 MG/DL (9-23); CALCIUM LEVEL 7.7 MG/DL (8.3-10.6); CARBON DIOXIDE LEVEL 28 MMOL/L (20-31); CHLORIDE LEVEL 105 MMOL/L (98-107); CREATININE FOR GFR 0.85 MG/DL (0.55-1.30); GLOMERULAR FILTRATION RATE > 60.0 (>39); GLUCOSE, FASTING 129 MG/DL (74-106); POTASSIUM SERUM 3.8 MMOL/L (3.5-5.1); SODIUM LEVEL 140 MMOL/L (136-145)
[2022-11-02] MEDS: ATORVASTATIN 10 MG TAB PO SCH (07:36)
[2022-11-02] MEDS: MONTELUKAST 10 MG TAB PO SCH (07:37)
[2022-11-02] MEDS: INSULIN LISPRO (NovoLOG) PER UNIT SC SCH ×4 (07:38→21:00)
[2022-11-02] MEDS: ALBUTEROL SULFATE 2.5MG/0.5ML INH NEB SOLN INH PRN ×2 (09:18→21:57)
[2022-11-02] MEDS ORDERED: ULTRACET TAB PO PRN (10:50)
[2022-11-02] MEDS: CelecoXIB (CeleBREX) 100 MG CAP PO SCH ×2 (11:49→21:06)
[2022-11-02] MEDS: oxyCODONE 5MG TAB PO PRN ×2 (12:45→16:49)
[2022-11-02 13:58] VITALS: BP_SYST 112; BP_SYST 130; BP_SYST 84; BP_DIAS 46; BP_DIAS 68; BP_DIAS 75
[2022-11-02] MEDS: NS 1,000 ML IV SCH (15:05)
[2022-11-02] MEDS ORDERED: NS 1,000 ML IV ONE (15:15)
[2022-11-02 15:46] LABS: IONIZED CALCIUM 4.2 MG/DL (4.5-5.3)
[2022-11-02] MEDS: MIDODRINE 2.5 MG TAB PO SCH ×2 (16:00→16:39)
[2022-11-02 16:02] LABS: HEMOGLOBIN A1c 6.9 % (4.0-6.0)
[2022-11-02 16:16] LABS: C REACTIVE PROTEIN QUANTITATIV 15.5 MG/DL (<1.0)
[2022-11-02 16:21] LABS: THYROID STIMULATING HORMONE 0.934 uIU/ML (0.55-4.78); THYROXINE (T4) 11.5 UG/DL (4.5-10.9)
[2022-11-02 16:22] LABS: FREE THYROXINE INDEX 4.7 % (1.3-4.8); T UPTAKE 40.6 % (22.5-37.0)
[2022-11-02 16:30] LABS: PROCALCITONIN 0.17 ng/ml
[2022-11-02] MEDS: RIVAROXABAN 10MG TAB (XARELTO) PO SCH (16:39)
[2022-11-02] MEDS: CALCIUM CARBONATE 500 MG CHEW U/D PO SCH (16:50)
[2022-11-02 19:47] VITALS: BP 109/55; TEMP 98.2; O2SAT 96
[2022-11-02] MEDS: oxyCODONE 5MG TAB PO SCH (21:05)
[2022-11-03] MEDS: oxyCODONE 5MG TAB PO PRN ×3 (02:01→13:44)
[2022-11-03] MEDS: NS 1,000 ML IV SCH ×3 (02:01→21:09)
[2022-11-03] MEDS ORDERED: KETOROLAC 30 MG/ML 1ML VIAL IV ONE (05:00)
[2022-11-03 05:50] LABS: HEMATOCRIT 27.9 % (36.0-47.0); HEMOGLOBIN 8.9 g/dl (12.0-15.5); MEAN CORPUSCULAR HEMOGLOBIN 28.1 pg (27.0-33.0); MEAN CORPUSCULAR HGB CONC 31.9 g/dl (32.0-36.5); PLATELET COUNT, AUTOMATED 242 10^3/uL (150-450); RED BLOOD COUNT 3.17 10^6/uL (4.00-5.40); WHITE BLOOD COUNT 13.7 10^3/uL (4.0-10.0)
[2022-11-03 06:14] VITALS: BP 110/58; TEMP 97.6; O2SAT 96
[2022-11-03 06:21] LABS: BLOOD UREA NITROGEN 8 MG/DL (9-23); CALCIUM LEVEL 7.5 MG/DL (8.3-10.6); CARBON DIOXIDE LEVEL 27 MMOL/L (20-31); CHLORIDE LEVEL 107 MMOL/L (98-107); GLOMERULAR FILTRATION RATE > 60.0 (>39); GLUCOSE, FASTING 141 MG/DL (74-106); SODIUM LEVEL 141 MMOL/L (136-145)
[2022-11-03] MEDS: MIDODRINE 2.5 MG TAB PO SCH ×5 (08:00→17:30)
[2022-11-03] MEDS: INSULIN LISPRO (NovoLOG) PER UNIT SC SCH ×4 (08:26→21:00)
[2022-11-03] MEDS: MONTELUKAST 10 MG TAB PO SCH (08:26)
[2022-11-03] MEDS: CelecoXIB (CeleBREX) 100 MG CAP PO SCH ×2 (08:26→21:09)
[2022-11-03] MEDS: CALCIUM CARBONATE 500 MG CHEW U/D PO SCH ×3 (08:26→18:00)
[2022-11-03] MEDS: ATORVASTATIN 10 MG TAB PO SCH (08:27)
[2022-11-03 08:30] VITALS: BP_SYST 110; BP_SYST 124; BP_DIAS 63; BP_DIAS 70; BP_DIAS 73
[2022-11-03] MEDS ORDERED: SENOKOT S TAB PO PRN (08:45)
[2022-11-03] MEDS ORDERED: MIRALAX *UNIT DOSE* 17GM PACKET PO PRN (08:45)
[2022-11-03] MEDS ORDERED: MIDO2.5T PO (10:28)
[2022-11-03] MEDS: MOM 30ML SUSPENSION UDC PO PRN (10:29)
[2022-11-03 13:00] VITALS: BP_SYST 112; BP_SYST 115; BP_DIAS 68; BP_DIAS 70; BP_DIAS 77
[2022-11-03 14:35] VITALS: BP 96/60; TEMP 98.2; O2SAT 94
[2022-11-03 17:00] VITALS: BP_SYST 100; BP_SYST 101; BP_SYST 93; BP_DIAS 54; BP_DIAS 56; BP_DIAS 58
[2022-11-03] MEDS: RIVAROXABAN 10MG TAB (XARELTO) PO SCH (17:59)
[2022-11-03 20:31] VITALS: BP 115/55; TEMP 98.8; O2SAT 96
[2022-11-03] MEDS: oxyCODONE 5MG TAB PO SCH (21:09)
[2022-11-04] MEDS: oxyCODONE 5MG TAB PO PRN ×3 (02:57→20:11)
[2022-11-04 06:21] VITALS: BP 125/95; TEMP 97.8; O2SAT 96
[2022-11-04] MEDS ORDERED: oxyCODONE 5MG TAB PO ONE (07:25)
[2022-11-04 08:00] VITALS: BP_SYST 102; BP_SYST 94; BP_SYST 99; BP_DIAS 49; BP_DIAS 50
[2022-11-04 08:13] LABS: BLOOD UREA NITROGEN 8 MG/DL (9-23); CALCIUM LEVEL 7.5 MG/DL (8.3-10.6); CARBON DIOXIDE LEVEL 28 MMOL/L (20-31); CHLORIDE LEVEL 107 MMOL/L (98-107); CREATININE FOR GFR 0.68 MG/DL (0.55-1.30); GLOMERULAR FILTRATION RATE > 60.0 (>39); GLUCOSE, FASTING 153 MG/DL (74-106); POTASSIUM SERUM 3.8 MMOL/L (3.5-5.1); SODIUM LEVEL 141 MMOL/L (136-145)
[2022-11-04] MEDS: CelecoXIB (CeleBREX) 100 MG CAP PO SCH (08:36)
[2022-11-04] MEDS: ATORVASTATIN 10 MG TAB PO SCH (08:36)
[2022-11-04] MEDS: CALCIUM CARBONATE 500 MG CHEW U/D PO SCH ×3 (08:36→18:00)
[2022-11-04] MEDS: MONTELUKAST 10 MG TAB PO SCH (08:37)
[2022-11-04] MEDS: KETOROLAC 30 MG/ML 1ML VIAL IV ONE ×2 (08:38→12:32)
[2022-11-04] MEDS: INSULIN LISPRO (NovoLOG) PER UNIT SC SCH ×4 (08:38→21:00)
[2022-11-04] MEDS: MIDODRINE 2.5 MG TAB PO SCH ×3 (08:47→17:30)
[2022-11-04] MEDS: NS 1,000 ML IV SCH ×2 (12:31→20:11)
[2022-11-04] MEDS: ALBUTEROL SULFATE 2.5MG/0.5ML INH NEB SOLN INH PRN (12:52)
[2022-11-04 14:00] VITALS: BP 105/61; TEMP 98.1; O2SAT 95
[2022-11-04] MEDS ORDERED: IPRATROPIUM 0.5MG/ALBUTEROL 2.5MG INH SOL UD 3ML (DUONEB) NEB PRN (14:15)
[2022-11-04] MEDS ORDERED: IPRATROPIUM 0.5MG/ALBUTEROL 2.5MG INH SOL UD 3ML (DUONEB) NEB ONE (14:15)
[2022-11-04] MEDS: IPRATROPIUM 0.5MG/ALBUTEROL 2.5MG INH SOL UD 3ML (DUONEB) NEB SCH ×2 (16:11→19:58)
[2022-11-04] MEDS: guaiFENesin ER 600 MG TAB PO SCH ×2 (17:29→21:10)
[2022-11-04] MEDS: ACETAMINOPHEN TAB 650MG DOSE (2X325MG) PO PRN (18:34)
[2022-11-04] MEDS: RIVAROXABAN 10MG TAB (XARELTO) PO SCH (18:34)
[2022-11-04 20:40] VITALS: BP 115/45; TEMP 98.7; O2SAT 96
[2022-11-04] MEDS: oxyCODONE 5MG TAB PO SCH (21:00)
[2022-11-04] MEDS ORDERED: guaiFENesin 200 MG TAB PO PRN (21:55)
[2022-11-04] MEDS: AUGMENTIN 875 MG TAB PO SCH (22:09)
[2022-11-05] MEDS ORDERED: ONDANSETRON 4MG 2ML VIAL IV ONE (02:00)
[2022-11-05] MEDS: NS 1,000 ML IV SCH (05:39)
[2022-11-05] MEDS: oxyCODONE 5MG TAB PO PRN ×3 (05:39→18:27)
[2022-11-05 06:22] VITALS: BP 113/48; TEMP 98.8; O2SAT 95
[2022-11-05] MEDS ORDERED: AZITHROMYCIN 250MG TABLET PO ONE (07:05)
[2022-11-05] MEDS: IPRATROPIUM 0.5MG/ALBUTEROL 2.5MG INH SOL UD 3ML (DUONEB) NEB SCH ×4 (07:38→19:53)
[2022-11-05 07:59] LABS: HEMATOCRIT 25.3 % (36.0-47.0); HEMOGLOBIN 7.8 g/dl (12.0-15.5); MEAN CORPUSCULAR HEMOGLOBIN 27.3 pg (27.0-33.0); MEAN CORPUSCULAR HGB CONC 30.8 g/dl (32.0-36.5); MEAN CORPUSCULAR VOLUME 88.5 fl (80.0-96.0); PLATELET COUNT, AUTOMATED 271 10^3/uL (150-450); RED BLOOD COUNT 2.86 10^6/uL (4.00-5.40); WHITE BLOOD COUNT 11.3 10^3/uL (4.0-10.0)
[2022-11-05 08:30] LABS: BLOOD UREA NITROGEN 10 MG/DL (9-23); CALCIUM LEVEL 7.3 MG/DL (8.3-10.6); CARBON DIOXIDE LEVEL 27 MMOL/L (20-31); CHLORIDE LEVEL 108 MMOL/L (98-107); CREATININE FOR GFR 0.71 MG/DL (0.55-1.30); GLOMERULAR FILTRATION RATE > 60.0 (>39); GLUCOSE, FASTING 161 MG/DL (74-106); POTASSIUM SERUM 4.3 MMOL/L (3.5-5.1); SODIUM LEVEL 140 MMOL/L (136-145)
[2022-11-05] MEDS: MONTELUKAST 10 MG TAB PO SCH (08:54)
[2022-11-05] MEDS: ATORVASTATIN 10 MG TAB PO SCH (08:55)
[2022-11-05] MEDS: guaiFENesin ER 600 MG TAB PO SCH ×2 (08:55→22:04)
[2022-11-05] MEDS: diphenhydrAMINE 25MG CAP PO SCH (08:56)
[2022-11-05] MEDS: AUGMENTIN 875 MG TAB PO SCH ×2 (09:48→22:04)
[2022-11-05] MEDS: MOM 30ML SUSPENSION UDC PO PRN (09:49)
[2022-11-05] MEDS: CALCIUM CARBONATE 500 MG CHEW U/D PO SCH ×3 (09:50→18:25)
[2022-11-05] MEDS: MIDODRINE 2.5 MG TAB PO SCH ×3 (09:50→15:18)
[2022-11-05] MEDS: INSULIN LISPRO (NovoLOG) PER UNIT SC SCH ×4 (09:50→21:00)
[2022-11-05] MEDS: ACETAMINOPHEN TAB 650MG DOSE (2X325MG) PO PRN ×2 (09:57→18:33)
[2022-11-05 10:56] LABS: HEMOGLOBIN 8.6 g/dl (12.0-15.5)
[2022-11-05 10:58] LABS: IRON (FE) 10 UG/DL (50-170); PERCENT SATURATION 5.2 % (13.2-45.0); TOTAL IRON BINDING CAPACITY 193 UG/DL (250-425)
[2022-11-05 11:01] LABS: FERRITIN 268.7 NG/ML (7.3-270.7)
[2022-11-05 14:57] VITALS: BP 99/51; TEMP 98.2; O2SAT 92
[2022-11-05 16:08] VITALS: BP_SYST 108; BP_SYST 109; BP_DIAS 50; BP_DIAS 53; BP_DIAS 58
[2022-11-05] MEDS: RIVAROXABAN 10MG TAB (XARELTO) PO SCH (18:25)
[2022-11-05 18:41] VITALS: TEMP 99.4
[2022-11-05 19:34] LABS: HEMATOCRIT 25.8 % (36.0-47.0); HEMOGLOBIN 8.1 g/dl (12.0-15.5)
[2022-11-05 22:00] VITALS: BP 102/49; TEMP 99
[2022-11-05] MEDS: oxyCODONE 5MG TAB PO SCH (22:05)
[2022-11-06] VITALS (8 sets, daily range): BP systolic 93–133; BP diastolic 51–77; TEMP 97.9–102.8
[2022-11-06] MEDS: ACETAMINOPHEN TAB 650MG DOSE (2X325MG) PO PRN ×2 (01:58→20:03)
[2022-11-06] MEDS: oxyCODONE 5MG TAB PO PRN (02:39)
[2022-11-06] MEDS: IPRATROPIUM 0.5MG/ALBUTEROL 2.5MG INH SOL UD 3ML (DUONEB) NEB SCH ×4 (07:49→20:58)
[2022-11-06] MEDS ORDERED: BISACODYL 10MG SUPP PR ONE (08:00)
[2022-11-06] MEDS ORDERED: BISACODYL 10MG SUPP PR PRN (08:00)
[2022-11-06] MEDS ORDERED: AZITHROMYCIN 250MG TABLET PO SCH (09:00)
[2022-11-06] MEDS: AUGMENTIN 875 MG TAB PO SCH (10:26)
[2022-11-06] MEDS: guaiFENesin ER 600 MG TAB PO SCH ×2 (10:26→20:03)
[2022-11-06] MEDS: ATORVASTATIN 10 MG TAB PO SCH (10:26)
[2022-11-06] MEDS: CALCIUM CARBONATE 500 MG CHEW U/D PO SCH ×3 (10:27→18:00)
[2022-11-06] MEDS: MONTELUKAST 10 MG TAB PO SCH (10:27)
[2022-11-06] MEDS: diphenhydrAMINE 25MG CAP PO SCH (10:27)
[2022-11-06] MEDS: MIDODRINE 2.5 MG TAB PO SCH ×3 (10:34→16:00)
[2022-11-06] MEDS: INSULIN LISPRO (NovoLOG) PER UNIT SC SCH ×4 (10:49→21:00)
[2022-11-06 17:03] LABS: BASO % 0.3 % (0.0-1.0); EOS # 0.4 10^3/uL (0.0-0.5); EOS % 3.1 % (0.0-3.0); HEMATOCRIT 29.3 % (36.0-47.0); HEMOGLOBIN 9.3 g/dl (12.0-15.5); LYMPH # 2.3 10^3/uL (1.5-5.0); LYMPH % 18.4 % (24.0-44.0); MEAN CORPUSCULAR HEMOGLOBIN 27.7 pg (27.0-33.0); MEAN CORPUSCULAR HGB CONC 31.7 g/dl (32.0-36.5); MEAN CORPUSCULAR VOLUME 87.2 fl (80.0-96.0); MONO # 1.4 10^3/uL (0.0-0.8); MONO % 10.9 % (2.0-8.0); NEUTROPHILS # 8.3 10^3/uL (1.5-8.5); PLATELET COUNT, AUTOMATED 400 10^3/uL (150-450); RED BLOOD COUNT 3.36 10^6/uL (4.00-5.40); WHITE BLOOD COUNT 12.6 10^3/uL (4.0-10.0)
[2022-11-06] MEDS ORDERED: diphenhydrAMINE 25MG CAP PO SCH (17:30)
[2022-11-06] MEDS ORDERED: LevoFLOXacin 750 MG TABLET PO SCH (18:00)
[2022-11-06] MEDS: RIVAROXABAN 10MG TAB (XARELTO) PO SCH (18:06)
[2022-11-06] MEDS: oxyCODONE 5MG TAB PO SCH (20:04)
[2022-11-07 02:00] VITALS: TEMP 98.9
[2022-11-07] MEDS: oxyCODONE 5MG TAB PO PRN ×3 (02:26→15:57)
[2022-11-07 05:50] VITALS: TEMP 99.7
[2022-11-07] MEDS: ACETAMINOPHEN TAB 650MG DOSE (2X325MG) PO PRN (06:12)
[2022-11-07 06:40] VITALS: BP_SYST 117; BP_SYST 134; BP_SYST 144; BP_DIAS 53; BP_DIAS 59; BP_DIAS 74
[2022-11-07 06:51] VITALS: TEMP 99.7
[2022-11-07] MEDS: IPRATROPIUM 0.5MG/ALBUTEROL 2.5MG INH SOL UD 3ML (DUONEB) NEB SCH ×2 (07:45→11:06)
[2022-11-07] MEDS: CALCIUM CARBONATE 500 MG CHEW U/D PO SCH ×2 (09:09→13:15)
[2022-11-07] MEDS: MIDODRINE 2.5 MG TAB PO SCH ×2 (09:09→12:00)
[2022-11-07] MEDS: INSULIN LISPRO (NovoLOG) PER UNIT SC SCH ×2 (09:09→13:15)
[2022-11-07] MEDS: ATORVASTATIN 10 MG TAB PO SCH (09:10)
[2022-11-07] MEDS: guaiFENesin ER 600 MG TAB PO SCH (09:10)
[2022-11-07] MEDS: MONTELUKAST 10 MG TAB PO SCH (09:10)
[2022-11-07] MEDS ORDERED: LEVO1TAB40 PO (11:55)
[2022-11-07] MEDS ORDERED: MUCI600T31 PO (11:55)
[2022-11-07] MEDS ORDERED: XARE10TA PO (11:58)
[2022-11-07] MEDS ORDERED: ASPI81CH33 PO (11:58)
[2022-11-09 15:08] LABS: BODY FLUID CULTURE Not indicated. (.); LEGIONELLA ANTIGEN URINE Negative (Negative); ORGANISM ID Not indicated. (.); SPECIMEN SOURCE Urine (.); URINE STREP PNEUMONIAE ANTIGEN Negative (Negative)
== END 2022-11-07 16:30 | disposition home health service (06) ==
LOC: M SDC 06:18 → M RR INP 06:19 → M MS5PR 13:40
PROVIDERS: ADMIT Orthopaedic Surgery; ATTEND Internal Medicine Nephrology
DX: M16.11 Unilateral primary osteoarthritis, right hip (principal); M79.651 Pain in right thigh; I95.1 Orthostatic hypotension; R50.9 Fever, unspecified; A49.2 Hemophilus influenzae infection, unspecified site; E11.9 Type 2 diabetes mellitus without complications; I25.119 Atherosclerotic heart disease of native coronary artery with unspecified angina pectoris; J45.909 Unspecified asthma, uncomplicated; K22.0 Achalasia of cardia; E78.00 Pure hypercholesterolemia, unspecified; H35.3210 Exudative age-related macular degeneration, right eye, stage unspecified; Z88.2 Allergy status to sulfonamides; Z88.1 Allergy status to other antibiotic agents; Z88.5 Allergy status to narcotic agent; Z88.8 Allergy status to other drugs, medicaments and biological substances; Z91.040 Latex allergy status; Z79.899 Other long term (current) drug therapy; Z79.01 Long term (current) use of anticoagulants; Z79.84 Long term (current) use of oral hypoglycemic drugs; Z79.51 Long term (current) use of inhaled steroids
CPT/HCPCS: 27130; 36415; 71046; 72170; 73700; 74176; 76000; 80048; 80503; 81001; 82330; 82533; 82728; 83036; 83550; 83605; 84145; 84436; 84443; 84479; 85014; 85018; 85025; 85027; 85046; 85652; 86140; 86850; 86900; 86901; 87040; 87070; 87077; 87184; 87205; 87449; 87486; 87581; 87633; 87635; 87798; 87899; 88300; 94640; 97110; 97116; 97161; 97165; 97530; 97535; C1713; C1776; J0131; J0690; J1100; J1170; J1815; J1885; J2250; J2405; J3010

== ENCOUNTER 2022-11-12 11:26 | Emergency (ER) | payer OTHER ==
[~2022-11-12] VITALS: Ht 165.1 cm; Wt 88.6 kg
[~2022-11-12 11:26] MED LIST changes: +ASPI81CH33 PO; +FLUT15.819 NARES; +LEVO1TAB40 PO; +METF750T36 PO; +MIDO2.5T PO; +MUPI2OI NARES; +OXYC1TAB23 PO; -ROPIVA 100MG/KETOR 15MG/EPINEPHRINE 0.3MG IN NS 50ML SYRINGE PA ONE; +SENN-188 PO; -TRANEXAMIC ACID INJection 1,000 MG in NS 100 ML IV ONE; +XARE10TA PO; -ceFAZolin SOD 2 GM in IV 1 EA IV ONE; -oxyCODONE 5MG TAB PO ONE
[2022-11-12 12:57] LABS: HEMATOCRIT 27.4 % (36.0-47.0); HEMOGLOBIN 8.7 g/dl (12.0-15.5); MEAN CORPUSCULAR HEMOGLOBIN 26.9 pg (27.0-33.0); MEAN CORPUSCULAR HGB CONC 31.8 g/dl (32.0-36.5); MEAN CORPUSCULAR VOLUME 84.8 fl (80.0-96.0); PLATELET COUNT, AUTOMATED 470 10^3/uL (150-450); RED BLOOD COUNT 3.23 10^6/uL (4.00-5.40); WHITE BLOOD COUNT 14.6 10^3/uL (4.0-10.0)
[2022-11-12 13:10] LABS: INR 1.39; PARTIAL THROMBOPLASTIN TIME 42.9 SECONDS (24.8-34.2); PROTHROMBIN TIME 17.3 SECONDS (12.5-14.5)
[2022-11-12] MEDS ORDERED: PERCOCET 5MG/325MG TAB PO ONE (13:20)
[2022-11-12 13:32] LABS: BLOOD UREA NITROGEN 13 MG/DL (9-23); CALCIUM LEVEL 8.3 MG/DL (8.3-10.6); CARBON DIOXIDE LEVEL 27 MMOL/L (20-31); CHLORIDE LEVEL 104 MMOL/L (98-107); CREATININE FOR GFR 0.76 MG/DL (0.55-1.30); GLOMERULAR FILTRATION RATE > 60.0 (>39); GLUCOSE, FASTING 136 MG/DL (74-106); SODIUM LEVEL 139 MMOL/L (136-145)
[2022-11-12] MEDS ORDERED: MORPHINE 4 MG/ML 1ML VIAL IV ONE (14:10)
[2022-11-12] MEDS ORDERED: ONDANSETRON 4MG 2ML VIAL IV ONE (14:10)
[2022-11-12 15:15] LABS: ERYTHROCYTE SEDIMENTATION RATE 101 mm/hr (0-30)
[2022-11-12] MEDS ORDERED: PERC5TAB12 PO (16:22)
[2022-11-12 17:03] VITALS: BP 150/67; TEMP 98.4; O2SAT 98
== END 2022-11-12 18:19 | disposition home or self-care (01) ==
LOC: EDBD 11:26 → M ED 11:26
DX: L76.32 Postprocedural hematoma of skin and subcutaneous tissue following other procedure (principal); G89.18 Other acute postprocedural pain; Z96.641 Presence of right artificial hip joint; E11.9 Type 2 diabetes mellitus without complications; I25.10 Atherosclerotic heart disease of native coronary artery without angina pectoris; Z88.2 Allergy status to sulfonamides; Z88.8 Allergy status to other drugs, medicaments and biological substances; Z91.040 Latex allergy status; Z79.899 Other long term (current) drug therapy; Z79.51 Long term (current) use of inhaled steroids; Z79.84 Long term (current) use of oral hypoglycemic drugs
CPT/HCPCS: 71045; 76882; 80048; 83605; 85027; 85610; 85652; 85730; 86140; 86850; 86900; 86901; 93041; 93971; 94760; 96374; 96375; 99284; J2405

== ENCOUNTER → 2022-11-13 | Outpatient (CLI) | payer OTHER ==
[~2022-11-13] MED LIST changes: +PERC5TAB12 PO
== END ==
LOC: M SOG 11:39
PROVIDERS: ATTEND Orthopaedic Surgery
DX: Z47.1 Aftercare following joint replacement surgery (principal); Z96.641 Presence of right artificial hip joint

== ENCOUNTER 2022-11-15 10:37 | Inpatient (IN) | payer OTHER ==
[~2022-11-15] VITALS: Ht 165.1 cm; Wt 92.6 kg
[~2022-11-15 10:37] MED LIST changes: +PANTOPRAZOLE 40MG VIAL IV SCH
[2022-11-15] MEDS ORDERED: NS 1,000 ML IV SCH (11:40)
[2022-11-15] MEDS ORDERED: ONDANSETRON 4MG 2ML VIAL IV ONE (11:40)
[2022-11-15] MEDS ORDERED: MORPHINE 2 MG/ML 1ML VIAL IV PRN ×2 (11:40→13:30)
[2022-11-15 12:16] LABS: BASO # 0.1 10^3/uL (0.0-0.2); BASO % 0.6 % (0.0-1.0); EOS # 0.7 10^3/uL (0.0-0.5); EOS % 4.8 % (0.0-3.0); HEMATOCRIT 29.8 % (36.0-47.0); LYMPH # 2.8 10^3/uL (1.5-5.0); MEAN CORPUSCULAR HEMOGLOBIN 26.1 pg (27.0-33.0); MEAN CORPUSCULAR HGB CONC 30.2 g/dl (32.0-36.5); MEAN CORPUSCULAR VOLUME 86.4 fl (80.0-96.0); MONO # 1.4 10^3/uL (0.0-0.8); MONO % 9.6 % (2.0-8.0); NEUTROPHILS # 9.5 10^3/uL (1.5-8.5); PLATELET COUNT, AUTOMATED 590 10^3/uL (150-450); RED BLOOD COUNT 3.45 10^6/uL (4.00-5.40); WHITE BLOOD COUNT 14.8 10^3/uL (4.0-10.0)
[2022-11-15 12:35] LABS: ALBUMIN 2.8 G/DL (3.2-5.2); ALKALINE PHOSPHATASE 185 U/L (46-116); ALT/SGPT 17 U/L (7.0-40); AST/SGOT 25 U/L (<34); BILIRUBIN,TOTAL 0.4 MG/DL (0.3-1.2); BLOOD UREA NITROGEN 12 MG/DL (9-23); CALCIUM LEVEL 8.8 MG/DL (8.3-10.6); CARBON DIOXIDE LEVEL 26 MMOL/L (20-31); CHLORIDE LEVEL 102 MMOL/L (98-107); CREATININE FOR GFR 0.67 MG/DL (0.55-1.30); GLOMERULAR FILTRATION RATE > 60.0 (>39); GLUCOSE, FASTING 128 MG/DL (74-106); POTASSIUM SERUM 3.8 MMOL/L (3.5-5.1); SODIUM LEVEL 138 MMOL/L (136-145); TOTAL PROTEIN 6.3 G/DL (5.7-8.2)
[2022-11-15 12:54] LABS: ERYTHROCYTE SEDIMENTATION RATE 93 mm/hr (0-30)
[2022-11-15] MEDS ORDERED: ONDANSETRON 4MG 2ML VIAL IV PRN ×3 (13:30→18:40)
[2022-11-15] MEDS ORDERED: VANCOMYCIN HCL 1,000 MG, VIAL MATE ADAPTER 1 EACH in D5W 250 ML IV SCH (13:30)
[2022-11-15] MEDS ORDERED: CEFEPIME HCL 1 GM in D5W MINI-BAG PLUS 50 ML IV SCH (13:30)
[2022-11-15] MEDS ORDERED: ACETAMINOPHEN TAB 650MG DOSE (2X325MG) PO PRN (13:30)
[2022-11-15] MEDS ORDERED: MORPHINE 4 MG/ML 1ML VIAL IV PRN (13:30)
[2022-11-15] MEDS: NS 1,000 ML IV SCH (13:30)
[2022-11-15] MEDS ORDERED: MED REC IN PROGRESS XX SCH (13:45)
[2022-11-15] MEDS ORDERED: GLUCOSE 4GM CHEW TABLET PO PRN ×2 (14:10→22:05)
[2022-11-15] MEDS ORDERED: DEXTROSE 50% 50ML SYRINGE IV PRN ×2 (14:10→22:05)
[2022-11-15] MEDS ORDERED: GLUCAGON INJ 1MG VIAL SC PRN ×2 (14:10→22:05)
[2022-11-15 14:43] LABS: INR 1.03; PROTHROMBIN TIME 13.7 SECONDS (12.5-14.5)
[2022-11-15 14:44] LABS: PARTIAL THROMBOPLASTIN TIME 31.8 SECONDS (24.8-34.2)
[2022-11-15] MEDS ORDERED: VANCOMYCIN HCL 1,000 MG, VIAL MATE ADAPTER 1 EACH in D5W 250 ML IV ONE (15:00)
[2022-11-15] MEDS ORDERED: MIDAZOLAM INJ 2MG/2ML VIAL As Ordered ONE (15:57)
[2022-11-15] MEDS ORDERED: propofoL 200 MG/20 ML VIAL As Ordered ONE (15:57)
[2022-11-15] MEDS ORDERED: LIDOCAINE 2% 100MG/5ML SDV (FOR ANES.) As Ordered ONE (15:57)
[2022-11-15] MEDS ORDERED: MUCI600T31 PO (15:58)
[2022-11-15] MEDS ORDERED: SENN-188 PO (15:58)
[2022-11-15] MEDS ORDERED: fentaNYL 100 MCG/2 ML INJECTION As Ordered ONE ×2 (15:58→18:00)
[2022-11-15] MEDS ORDERED: AMOX500T2 PO (15:58)
[2022-11-15] MEDS ORDERED: OXYC1TAB23 PO (15:58)
[2022-11-15] MEDS ORDERED: FLUC150T9 PO (15:58)
[2022-11-15] MEDS ORDERED: ASPI81CH33 PO (15:58)
[2022-11-15] MEDS ORDERED: ceFAZolin 1GM VIAL As Ordered ONE (15:59)
[2022-11-15] MEDS ORDERED: VANCOMYCIN HCL 750 MG, VIAL MATE ADAPTER 1 EACH in D5W 250 ML IV ONE (16:00)
[2022-11-15] MEDS ORDERED: HOME MED LIST COMPLETE! XX SCH (16:00)
[2022-11-15] MEDS ORDERED: CEFEPIME 1GM VIAL (MAXIPIME) As Ordered ONE (16:22)
[2022-11-15] MEDS ORDERED: VANCOMYCIN 1000MG/20ML VIAL As Ordered ONE (16:23)
[2022-11-15] MEDS ORDERED: ROCURONIUM BROMIDE 50MG/5ML VIAL As Ordered ONE (16:48)
[2022-11-15] MEDS ORDERED: CEFEPIME HCL 2 GM in D5W MINI-BAG PLUS 50 ML IV SCH (17:00)
[2022-11-15] MEDS ORDERED: METOCLOPRAMIDE INJ 10MG/2ML VIAL As Ordered ONE (17:08)
[2022-11-15] MEDS ORDERED: ONDANSETRON 4MG 2ML VIAL As Ordered ONE ×2 (17:14→17:15)
[2022-11-15] MEDS ORDERED: SUGAMMADEX SODIUM 500 MG/5 ML VIAL (BRIDION) As Ordered ONE (17:15)
[2022-11-15] MEDS ORDERED: ACETAMINOPHEN 1000MG 100ML IV BAG As Ordered ONE (17:20)
[2022-11-15] MEDS: CEFEPIME HCL 2 GM in D5W MINI-BAG PLUS 50 ML IV SCH (17:45)
[2022-11-15] MEDS ORDERED: INSULIN LISPRO (NovoLOG) PER UNIT SC SCH (18:00)
[2022-11-15] MEDS ORDERED: LR 1,000 ML IV SCH (18:40)
[2022-11-15] MEDS ORDERED: fentaNYL 100 MCG/2 ML INJECTION IV PRN (18:40)
[2022-11-15] MEDS ORDERED: INSULIN LISPRO (NovoLOG) PER UNIT SC PRN (18:40)
[2022-11-15] MEDS ORDERED: oxyCODONE 5MG TAB PO PRN (18:40)
[2022-11-15] MEDS: HYDROMORPHONE HCL 0.5 MG/ 0.5 ML SYRINGE IV PRN ×4 (18:47→19:11)
[2022-11-15 19:36] LABS: SOURCE, BODY FLUID RT HIP; SYNOVIAL FLUID COLOR RED (COLORLESS)
[2022-11-15 19:39] LABS: SOURCE, BODY FLUID RT HIP; SYNOVIAL FLUID COLOR RED (COLORLESS)
[2022-11-15 19:50] VITALS: BP 105/54; TEMP 97.9; O2SAT 94
[2022-11-15 20:30] VITALS: BP 104/55; TEMP 97.9; O2SAT 96
[2022-11-15] MEDS: DOCUSATE SODIUM 100MG CAPSULE PO SCH (20:51)
[2022-11-15] MEDS: ASPIRIN 81MG ENTERIC TABLET PO SCH (20:51)
[2022-11-15] MEDS ORDERED: FLUCONAZOLE 50MG TABLET PO ONE (21:00)
[2022-11-15 21:41] VITALS: BP 108/55; TEMP 96.6; O2SAT 96
[2022-11-15 22:59] VITALS: BP 106/56; TEMP 96.8; O2SAT 96
[2022-11-16] MEDS: NS 1,000 ML IV SCH (00:04)
[2022-11-16] MEDS: CEFEPIME HCL 2 GM in D5W MINI-BAG PLUS 50 ML IV SCH ×3 (00:46→17:00)
[2022-11-16] MEDS: ACETAMINOPHEN TAB 650MG DOSE (2X325MG) PO SCH ×3 (00:47→11:19)
[2022-11-16] MEDS: oxyCODONE 5MG TAB PO PRN ×2 (00:49→13:56)
[2022-11-16 02:00] VITALS: BP 108/54; TEMP 97.6; O2SAT 94
[2022-11-16] MEDS ORDERED: VANCOMYCIN HCL 1,000 MG, VIAL MATE ADAPTER 1 EACH in D5W 250 ML IV SCH (02:00)
[2022-11-16] MEDS ORDERED: OMEPRAZOLE 20MG CAP PO PRN (06:45)
[2022-11-16 06:49] VITALS: BP 110/53; TEMP 98; O2SAT 95
[2022-11-16 06:52] LABS: HEMOGLOBIN 7.9 g/dl (12.0-15.5); MEAN CORPUSCULAR HEMOGLOBIN 26.4 pg (27.0-33.0); MEAN CORPUSCULAR HGB CONC 30.4 g/dl (32.0-36.5); PLATELET COUNT, AUTOMATED 515 10^3/uL (150-450); RED BLOOD COUNT 2.99 10^6/uL (4.00-5.40); WHITE BLOOD COUNT 9.2 10^3/uL (4.0-10.0)
[2022-11-16 07:07] LABS: INR 1.14; PROTHROMBIN TIME 14.3 SECONDS (12.5-14.5)
[2022-11-16 07:18] LABS: ALBUMIN 2.1 G/DL (3.2-5.2); ALKALINE PHOSPHATASE 156 U/L (46-116); ALT/SGPT 14 U/L (7.0-40); AST/SGOT 25 U/L (<34); BILIRUBIN,TOTAL 0.3 MG/DL (0.3-1.2); BLOOD UREA NITROGEN 10 MG/DL (9-23); CALCIUM LEVEL 8.1 MG/DL (8.3-10.6); CARBON DIOXIDE LEVEL 27 MMOL/L (20-31); CHLORIDE LEVEL 106 MMOL/L (98-107); CREATININE FOR GFR 0.68 MG/DL (0.55-1.30); GLOMERULAR FILTRATION RATE > 60.0 (>39); GLUCOSE, FASTING 119 MG/DL (74-106); PHOSPHORUS LEVEL 4.1 MG/DL (2.4-5.1); POTASSIUM SERUM 4.6 MMOL/L (3.5-5.1); SODIUM LEVEL 140 MMOL/L (136-145); TOTAL PROTEIN 5.3 G/DL (5.7-8.2)
[2022-11-16 07:50] LABS: VANCOMYCIN RANDOM 16.7 UG/ML
[2022-11-16] MEDS: ADVAIR HFA 230/21MCG INHALER INH SCH ×2 (08:12→19:21)
[2022-11-16] MEDS: ASCORBIC ACID 500 MG TAB PO SCH (08:16)
[2022-11-16] MEDS: ASPIRIN 81MG ENTERIC TABLET PO SCH ×2 (08:16→20:05)
[2022-11-16] MEDS: FERROUS SULFATE 325MG TAB PO SCH (08:16)
[2022-11-16] MEDS: MONTELUKAST 10 MG TAB PO SCH (08:16)
[2022-11-16] MEDS: ATORVASTATIN 10 MG TAB PO SCH (08:16)
[2022-11-16] MEDS: guaiFENesin ER 600 MG TAB PO SCH ×2 (08:16→20:05)
[2022-11-16] MEDS: INSULIN LISPRO (NovoLOG) PER UNIT SC SCH ×4 (08:17→20:07)
[2022-11-16] MEDS: MULTIVITAMINS/MINERALS THERAP 1 TAB PO SCH (08:17)
[2022-11-16] MEDS: DOCUSATE SODIUM 100MG CAPSULE PO SCH ×2 (08:17→20:05)
[2022-11-16] MEDS ORDERED: FLUCONAZOLE 50MG TABLET PO SCH (09:00)
[2022-11-16] MEDS: THEOPHYLLINE (THEO-24) 100MG SR **CAPSULE PO SCH (09:16)
[2022-11-16] MEDS: VANCOMYCIN HCL 1,000 MG, VIAL MATE ADAPTER 1 EACH in D5W 250 ML IV SCH ×2 (09:23→21:37)
[2022-11-16 10:00] VITALS: BP 111/53; TEMP 98.4; O2SAT 97
[2022-11-16 14:00] VITALS: BP 123/60; TEMP 98.6; O2SAT 94
[2022-11-16 18:00] VITALS: BP 121/60; TEMP 98.8; O2SAT 95
[2022-11-16 20:00] VITALS: BP 120/60; TEMP 98.2; O2SAT 92
[2022-11-16] MEDS: PERCOCET 5MG/325MG TAB PO PRN (20:05)
[2022-11-17] MEDS: CEFEPIME HCL 2 GM in D5W MINI-BAG PLUS 50 ML IV SCH ×3 (00:27→17:45)
[2022-11-17] MEDS: PERCOCET 5MG/325MG TAB PO PRN ×3 (01:30→13:38)
[2022-11-17] MEDS: ALBUTEROL 90 MCG/ACT 8GM HFA INHALER INH PRN (01:34)
[2022-11-17 05:17] VITALS: BP 110/55; TEMP 98.6; O2SAT 90
[2022-11-17] MEDS: ACETAMINOPHEN TAB 650MG DOSE (2X325MG) PO PRN ×2 (06:16→18:58)
[2022-11-17 06:52] LABS: HEMATOCRIT 26.9 % (36.0-47.0); HEMOGLOBIN 8.3 g/dl (12.0-15.5); MEAN CORPUSCULAR HGB CONC 30.9 g/dl (32.0-36.5); MEAN CORPUSCULAR VOLUME 87.6 fl (80.0-96.0); PLATELET COUNT, AUTOMATED 575 10^3/uL (150-450); RED BLOOD COUNT 3.07 10^6/uL (4.00-5.40); WHITE BLOOD COUNT 11.4 10^3/uL (4.0-10.0)
[2022-11-17 07:17] LABS: ALBUMIN 2.2 G/DL (3.2-5.2); ALKALINE PHOSPHATASE 174 U/L (46-116); ALT/SGPT 13 U/L (7.0-40); AST/SGOT 17 U/L (<34); BILIRUBIN,TOTAL 0.4 MG/DL (0.3-1.2); BLOOD UREA NITROGEN 11 MG/DL (9-23); CALCIUM LEVEL 8.5 MG/DL (8.3-10.6); CARBON DIOXIDE LEVEL 28 MMOL/L (20-31); CHLORIDE LEVEL 102 MMOL/L (98-107); CREATININE FOR GFR 0.74 MG/DL (0.55-1.30); GLOMERULAR FILTRATION RATE > 60.0 (>39); GLUCOSE, FASTING 213 MG/DL (74-106); SODIUM LEVEL 137 MMOL/L (136-145); TOTAL PROTEIN 5.6 G/DL (5.7-8.2)
[2022-11-17 07:18] LABS: ALBUMIN 2.2 G/DL (3.2-5.2); BLOOD UREA NITROGEN 11 MG/DL (9-23); CALCIUM LEVEL 8.5 MG/DL (8.3-10.6); CARBON DIOXIDE LEVEL 28 MMOL/L (20-31); CHLORIDE LEVEL 101 MMOL/L (98-107); CREATININE FOR GFR 0.73 MG/DL (0.55-1.30); GLOMERULAR FILTRATION RATE > 60.0 (>39); GLUCOSE, FASTING 213 MG/DL (74-106); PHOSPHORUS LEVEL 3.6 MG/DL (2.4-5.1); POTASSIUM SERUM 3.9 MMOL/L (3.5-5.1); SODIUM LEVEL 137 MMOL/L (136-145)
[2022-11-17] MEDS: ADVAIR HFA 230/21MCG INHALER INH SCH ×2 (07:56→19:16)
[2022-11-17] MEDS ORDERED: FUROSEMIDE 40MG/4ML VIAL IV ONE (08:25)
[2022-11-17] MEDS: INSULIN LISPRO (NovoLOG) PER UNIT SC SCH ×4 (09:06→20:56)
[2022-11-17] MEDS: guaiFENesin ER 600 MG TAB PO SCH ×2 (09:06→20:56)
[2022-11-17] MEDS: ATORVASTATIN 10 MG TAB PO SCH (09:07)
[2022-11-17] MEDS: ASPIRIN 81MG ENTERIC TABLET PO SCH ×2 (09:07→20:56)
[2022-11-17] MEDS: DOCUSATE SODIUM 100MG CAPSULE PO SCH ×2 (09:07→20:56)
[2022-11-17] MEDS: MULTIVITAMINS/MINERALS THERAP 1 TAB PO SCH (09:07)
[2022-11-17] MEDS: MONTELUKAST 10 MG TAB PO SCH (09:07)
[2022-11-17] MEDS: FERROUS SULFATE 325MG TAB PO SCH (09:07)
[2022-11-17] MEDS: THEOPHYLLINE (THEO-24) 100MG SR **CAPSULE PO SCH (09:08)
[2022-11-17] MEDS: ASCORBIC ACID 500 MG TAB PO SCH (09:08)
[2022-11-17] MEDS: VANCOMYCIN HCL 1,000 MG, VIAL MATE ADAPTER 1 EACH in D5W 250 ML IV SCH ×2 (11:19→20:56)
[2022-11-17] MEDS: BISACODYL 10MG SUPP PR SCH ×2 (12:23→20:55)
[2022-11-17 15:29] VITALS: BP 124/59; TEMP 98.4; O2SAT 96
[2022-11-17 20:22] VITALS: BP 125/81; TEMP 98.6; O2SAT 97
[2022-11-17] MEDS ORDERED: BISACODYL 10MG SUPP PR SCH (21:00)
[2022-11-18] MEDS: CEFEPIME HCL 2 GM in D5W MINI-BAG PLUS 50 ML IV SCH ×3 (00:26→17:26)
[2022-11-18] MEDS: PERCOCET 5MG/325MG TAB PO PRN ×2 (00:31→22:05)
[2022-11-18 06:08] VITALS: BP 120/62; TEMP 98.1; O2SAT 96
[2022-11-18 06:36] LABS: HEMATOCRIT 24.4 % (36.0-47.0); HEMOGLOBIN 7.7 g/dl (12.0-15.5); MEAN CORPUSCULAR HEMOGLOBIN 26.7 pg (27.0-33.0); MEAN CORPUSCULAR HGB CONC 31.6 g/dl (32.0-36.5); MEAN CORPUSCULAR VOLUME 84.7 fl (80.0-96.0); PLATELET COUNT, AUTOMATED 519 10^3/uL (150-450); RED BLOOD COUNT 2.88 10^6/uL (4.00-5.40); WHITE BLOOD COUNT 10.3 10^3/uL (4.0-10.0)
[2022-11-18] MEDS: ALBUTEROL 90 MCG/ACT 8GM HFA INHALER INH PRN ×3 (08:00→16:15)
[2022-11-18] MEDS: ADVAIR HFA 230/21MCG INHALER INH SCH ×2 (08:00→20:16)
[2022-11-18] MEDS: BISACODYL 10MG SUPP PR SCH ×2 (09:00→22:04)
[2022-11-18] MEDS: INSULIN LISPRO (NovoLOG) PER UNIT SC SCH ×4 (09:28→21:00)
[2022-11-18] MEDS: THEOPHYLLINE (THEO-24) 100MG SR **CAPSULE PO SCH (09:29)
[2022-11-18] MEDS: DOCUSATE SODIUM 100MG CAPSULE PO SCH ×2 (09:29→22:04)
[2022-11-18] MEDS: MULTIVITAMINS/MINERALS THERAP 1 TAB PO SCH (09:29)
[2022-11-18] MEDS: MONTELUKAST 10 MG TAB PO SCH (09:29)
[2022-11-18] MEDS: guaiFENesin ER 600 MG TAB PO SCH ×2 (09:29→22:04)
[2022-11-18] MEDS: FERROUS SULFATE 325MG TAB PO SCH (09:29)
[2022-11-18] MEDS: ATORVASTATIN 10 MG TAB PO SCH (09:29)
[2022-11-18] MEDS: ASCORBIC ACID 500 MG TAB PO SCH (09:29)
[2022-11-18] MEDS: ASPIRIN 81MG ENTERIC TABLET PO SCH ×2 (09:29→22:04)
[2022-11-18 09:47] LABS: VANCOMYCIN LEVEL TROUGH 20.4 UG/ML (10.0-20.0)
[2022-11-18 09:54] LABS: ALBUMIN 2.2 G/DL (3.2-5.2); ALKALINE PHOSPHATASE 173 U/L (46-116); ALT/SGPT 13 U/L (7.0-40); AST/SGOT 18 U/L (<34); BILIRUBIN,TOTAL 0.4 MG/DL (0.3-1.2); BLOOD UREA NITROGEN 10 MG/DL (9-23); CALCIUM LEVEL 8.3 MG/DL (8.3-10.6); CARBON DIOXIDE LEVEL 27 MMOL/L (20-31); CHLORIDE LEVEL 105 MMOL/L (98-107); CREATININE FOR GFR 0.69 MG/DL (0.55-1.30); GLOMERULAR FILTRATION RATE > 60.0 (>39); GLUCOSE, FASTING 150 MG/DL (74-106); PHOSPHORUS LEVEL 3.4 MG/DL (2.4-5.1); POTASSIUM SERUM 3.7 MMOL/L (3.5-5.1); SODIUM LEVEL 141 MMOL/L (136-145); TOTAL PROTEIN 5.3 G/DL (5.7-8.2)
[2022-11-18] MEDS: VANCOMYCIN HCL 750 MG, VIAL MATE ADAPTER 1 EACH in D5W 250 ML IV SCH (12:54)
[2022-11-18] MEDS ORDERED: FUROSEMIDE 20MG/2ML VIAL IV ONE (13:40)
[2022-11-18 14:00] VITALS: BP 122/62; TEMP 98.6; O2SAT 98
[2022-11-18 21:18] VITALS: BP 121/63; TEMP 98.8; O2SAT 95
[2022-11-19] MEDS: VANCOMYCIN HCL 750 MG, VIAL MATE ADAPTER 1 EACH in D5W 250 ML IV SCH ×2 (00:13→13:39)
[2022-11-19] MEDS: ALBUTEROL 90 MCG/ACT 8GM HFA INHALER INH PRN ×5 (00:15→19:43)
[2022-11-19] MEDS: CEFEPIME HCL 2 GM in D5W MINI-BAG PLUS 50 ML IV SCH ×3 (01:49→17:13)
[2022-11-19 06:00] VITALS: BP 112/59; TEMP 98.6; O2SAT 95
[2022-11-19 06:53] LABS: HEMATOCRIT 24.3 % (36.0-47.0); HEMOGLOBIN 7.5 g/dl (12.0-15.5); MEAN CORPUSCULAR HEMOGLOBIN 26.6 pg (27.0-33.0); MEAN CORPUSCULAR HGB CONC 30.9 g/dl (32.0-36.5); MEAN CORPUSCULAR VOLUME 86.2 fl (80.0-96.0); PLATELET COUNT, AUTOMATED 571 10^3/uL (150-450); RED BLOOD COUNT 2.82 10^6/uL (4.00-5.40); WHITE BLOOD COUNT 9.7 10^3/uL (4.0-10.0)
[2022-11-19 07:19] LABS: ALKALINE PHOSPHATASE 170 U/L (46-116); ALT/SGPT 11 U/L (7.0-40); AST/SGOT 17 U/L (<34); BILIRUBIN,TOTAL 0.3 MG/DL (0.3-1.2); BLOOD UREA NITROGEN 10 MG/DL (9-23); CALCIUM LEVEL 8.5 MG/DL (8.3-10.6); CARBON DIOXIDE LEVEL 28 MMOL/L (20-31); CHLORIDE LEVEL 105 MMOL/L (98-107); CREATININE FOR GFR 0.74 MG/DL (0.55-1.30); GLOMERULAR FILTRATION RATE > 60.0 (>39); GLUCOSE, FASTING 167 MG/DL (74-106); POTASSIUM SERUM 3.6 MMOL/L (3.5-5.1); SODIUM LEVEL 140 MMOL/L (136-145); TOTAL PROTEIN 5.1 G/DL (5.7-8.2)
[2022-11-19] MEDS: ADVAIR HFA 230/21MCG INHALER INH SCH ×2 (07:54→20:00)
[2022-11-19] MEDS: THEOPHYLLINE (THEO-24) 100MG SR **CAPSULE PO SCH (08:37)
[2022-11-19] MEDS: ASCORBIC ACID 500 MG TAB PO SCH (08:37)
[2022-11-19] MEDS: ASPIRIN 81MG ENTERIC TABLET PO SCH ×2 (08:37→20:15)
[2022-11-19] MEDS: DOCUSATE SODIUM 100MG CAPSULE PO SCH ×2 (08:38→20:15)
[2022-11-19] MEDS: MULTIVITAMINS/MINERALS THERAP 1 TAB PO SCH (08:38)
[2022-11-19] MEDS: FERROUS SULFATE 325MG TAB PO SCH (08:38)
[2022-11-19] MEDS: MONTELUKAST 10 MG TAB PO SCH (08:38)
[2022-11-19] MEDS: ATORVASTATIN 10 MG TAB PO SCH (08:38)
[2022-11-19] MEDS: guaiFENesin ER 600 MG TAB PO SCH ×2 (08:38→20:15)
[2022-11-19] MEDS: BISACODYL 10MG SUPP PR SCH ×2 (08:39→20:16)
[2022-11-19] MEDS: INSULIN LISPRO (NovoLOG) PER UNIT SC SCH ×4 (08:39→20:16)
[2022-11-19 14:00] VITALS: BP 137/71; TEMP 98.8; O2SAT 97
[2022-11-19] MEDS: ACETAMINOPHEN TAB 650MG DOSE (2X325MG) PO PRN (14:57)
[2022-11-19] MEDS: PERCOCET 5MG/325MG TAB PO PRN (18:46)
[2022-11-19] MEDS: SENNA 8.6 MG TAB (SENOKOT) PO PRN (20:15)
[2022-11-19 22:00] VITALS: BP 125/77; TEMP 98.6; O2SAT 95
[2022-11-20] VITALS (9 sets, daily range): BP systolic 109–135; BP diastolic 53–80; TEMP 97.5–99.3; O2SAT 95–98
[2022-11-20] MEDS: VANCOMYCIN HCL 750 MG, VIAL MATE ADAPTER 1 EACH in D5W 250 ML IV SCH (00:22)
[2022-11-20] MEDS: CEFEPIME HCL 2 GM in D5W MINI-BAG PLUS 50 ML IV SCH ×3 (00:25→17:01)
[2022-11-20] MEDS: PERCOCET 5MG/325MG TAB PO PRN ×3 (00:31→22:28)
[2022-11-20] MEDS: ALBUTEROL 90 MCG/ACT 8GM HFA INHALER INH PRN ×4 (02:56→15:09)
[2022-11-20 06:34] LABS: HEMATOCRIT 23.7 % (36.0-47.0); HEMOGLOBIN 7.3 g/dl (12.0-15.5); MEAN CORPUSCULAR HEMOGLOBIN 26.3 pg (27.0-33.0); MEAN CORPUSCULAR HGB CONC 30.8 g/dl (32.0-36.5); MEAN CORPUSCULAR VOLUME 85.3 fl (80.0-96.0); PLATELET COUNT, AUTOMATED 528 10^3/uL (150-450); RED BLOOD COUNT 2.78 10^6/uL (4.00-5.40); WHITE BLOOD COUNT 10.3 10^3/uL (4.0-10.0)
[2022-11-20 06:55] LABS: ALKALINE PHOSPHATASE 173 U/L (46-116); ALT/SGPT 12 U/L (7.0-40); AST/SGOT 18 U/L (<34); BILIRUBIN,TOTAL 0.3 MG/DL (0.3-1.2); BLOOD UREA NITROGEN 11 MG/DL (9-23); CALCIUM LEVEL 8.6 MG/DL (8.3-10.6); CARBON DIOXIDE LEVEL 28 MMOL/L (20-31); CHLORIDE LEVEL 105 MMOL/L (98-107); CREATININE FOR GFR 0.71 MG/DL (0.55-1.30); GLOMERULAR FILTRATION RATE > 60.0 (>39); GLUCOSE, FASTING 137 MG/DL (74-106); POTASSIUM SERUM 3.7 MMOL/L (3.5-5.1); SODIUM LEVEL 140 MMOL/L (136-145); TOTAL PROTEIN 5.2 G/DL (5.7-8.2)
[2022-11-20] MEDS: ADVAIR HFA 230/21MCG INHALER INH SCH ×2 (07:45→19:41)
[2022-11-20] MEDS: BISACODYL 10MG SUPP PR SCH ×2 (09:00→20:11)
[2022-11-20] MEDS: guaiFENesin ER 600 MG TAB PO SCH ×2 (09:44→20:10)
[2022-11-20] MEDS: ASCORBIC ACID 500 MG TAB PO SCH (09:44)
[2022-11-20] MEDS: ASPIRIN 81MG ENTERIC TABLET PO SCH ×2 (09:44→20:09)
[2022-11-20] MEDS: INSULIN LISPRO (NovoLOG) PER UNIT SC SCH ×4 (09:44→20:10)
[2022-11-20] MEDS: THEOPHYLLINE (THEO-24) 100MG SR **CAPSULE PO SCH (09:44)
[2022-11-20] MEDS: MONTELUKAST 10 MG TAB PO SCH (09:44)
[2022-11-20] MEDS: DOCUSATE SODIUM 100MG CAPSULE PO SCH ×2 (09:44→20:10)
[2022-11-20] MEDS: MULTIVITAMINS/MINERALS THERAP 1 TAB PO SCH (09:44)
[2022-11-20] MEDS: FERROUS SULFATE 325MG TAB PO SCH (09:44)
[2022-11-20] MEDS: ATORVASTATIN 10 MG TAB PO SCH (09:44)
[2022-11-20 10:20] LABS: IRON (FE) 18 UG/DL (50-170); PERCENT SATURATION 8.7 % (13.2-45.0); TOTAL IRON BINDING CAPACITY 207 UG/DL (250-425)
[2022-11-20 10:22] LABS: FERRITIN 125.4 NG/ML (7.3-270.7); FOLATE 10.26 NG/ML (>5.4)
[2022-11-20 10:23] LABS: VITAMIN B12 LEVEL 722 PG/ML (211-911)
[2022-11-20] MEDS: ACETAMINOPHEN TAB 650MG DOSE (2X325MG) PO PRN (11:01)
[2022-11-20] MEDS: SENNA 8.6 MG TAB (SENOKOT) PO PRN (20:10)
[2022-11-21] VITALS (7 sets, daily range): BP systolic 112–120; BP diastolic 60–75; TEMP 97.9–98.6; O2SAT 88–98
[2022-11-21] MEDS: CEFEPIME HCL 2 GM in D5W MINI-BAG PLUS 50 ML IV SCH ×3 (01:25→17:12)
[2022-11-21] MEDS: PERCOCET 5MG/325MG TAB PO PRN (05:55)
[2022-11-21 06:55] LABS: HEMATOCRIT 26.9 % (36.0-47.0); HEMOGLOBIN 8.4 g/dl (12.0-15.5); MEAN CORPUSCULAR HEMOGLOBIN 26.6 pg (27.0-33.0); MEAN CORPUSCULAR HGB CONC 31.2 g/dl (32.0-36.5); MEAN CORPUSCULAR VOLUME 85.1 fl (80.0-96.0); PLATELET COUNT, AUTOMATED 535 10^3/uL (150-450); RED BLOOD COUNT 3.16 10^6/uL (4.00-5.40); WHITE BLOOD COUNT 10.1 10^3/uL (4.0-10.0)
[2022-11-21 07:17] LABS: ALKALINE PHOSPHATASE 186 U/L (46-116); ALT/SGPT 13 U/L (7.0-40); AST/SGOT 19 U/L (<34); BILIRUBIN,TOTAL 0.4 MG/DL (0.3-1.2); BLOOD UREA NITROGEN 11 MG/DL (9-23); CALCIUM LEVEL 8.6 MG/DL (8.3-10.6); CARBON DIOXIDE LEVEL 28 MMOL/L (20-31); CHLORIDE LEVEL 108 MMOL/L (98-107); CREATININE FOR GFR 0.76 MG/DL (0.55-1.30); GLOMERULAR FILTRATION RATE > 60.0 (>39); GLUCOSE, FASTING 119 MG/DL (74-106); POTASSIUM SERUM 4.3 MMOL/L (3.5-5.1); SODIUM LEVEL 144 MMOL/L (136-145); TOTAL PROTEIN 5.2 G/DL (5.7-8.2)
[2022-11-21] MEDS: ADVAIR HFA 230/21MCG INHALER INH SCH ×2 (07:22→20:17)
[2022-11-21] MEDS: ALBUTEROL 90 MCG/ACT 8GM HFA INHALER INH PRN ×4 (07:23→20:17)
[2022-11-21] MEDS: INSULIN LISPRO (NovoLOG) PER UNIT SC SCH ×4 (07:30→21:00)
[2022-11-21] MEDS: ASCORBIC ACID 500 MG TAB PO SCH (09:00)
[2022-11-21] MEDS: ASPIRIN 81MG ENTERIC TABLET PO SCH ×2 (09:00→21:36)
[2022-11-21] MEDS: BISACODYL 10MG SUPP PR SCH ×2 (09:00→21:00)
[2022-11-21] MEDS: DOCUSATE SODIUM 100MG CAPSULE PO SCH ×2 (09:00→21:36)
[2022-11-21] MEDS: guaiFENesin ER 600 MG TAB PO SCH ×2 (09:00→21:36)
[2022-11-21] MEDS: MULTIVITAMINS/MINERALS THERAP 1 TAB PO SCH (09:00)
[2022-11-21] MEDS: ATORVASTATIN 10 MG TAB PO SCH (09:18)
[2022-11-21] MEDS: MONTELUKAST 10 MG TAB PO SCH (09:18)
[2022-11-21] MEDS: FERROUS SULFATE 325MG TAB PO SCH (09:18)
[2022-11-21] MEDS: THEOPHYLLINE (THEO-24) 100MG SR **CAPSULE PO SCH (09:19)
[2022-11-21] MEDS ORDERED: LIDOCAINE 2% 100MG/5ML SDV (FOR ANES.) As Ordered ONE (14:59)
[2022-11-21] MEDS ORDERED: ONDANSETRON 4MG 2ML VIAL As Ordered ONE (14:59)
[2022-11-21] MEDS ORDERED: fentaNYL 100 MCG/2 ML INJECTION As Ordered ONE ×2 (14:59→17:23)
[2022-11-21] MEDS ORDERED: propofoL 200 MG/20 ML VIAL As Ordered ONE (14:59)
[2022-11-21] MEDS ORDERED: MIDAZOLAM INJ 2MG/2ML VIAL As Ordered ONE (14:59)
[2022-11-21] MEDS ORDERED: ROCURONIUM BROMIDE 50MG/5ML VIAL As Ordered ONE ×2 (16:22→17:29)
[2022-11-21] MEDS ORDERED: ACETAMINOPHEN 1000MG 100ML IV BAG As Ordered ONE (17:17)
[2022-11-21] MEDS ORDERED: SUGAMMADEX SODIUM 500 MG/5 ML VIAL (BRIDION) As Ordered ONE (17:17)
[2022-11-21] MEDS ORDERED: ePHEDrine SULFATE 25 MG/5 ML(5MG/ML) SYRINGE As Ordered ONE (17:29)
[2022-11-21] MEDS ORDERED: PHENYLephrine 500MCG 5ML (100MCG/ML) SYRINGE As Ordered ONE (17:29)
[2022-11-21] MEDS ORDERED: TOBRAMYCIN SULF 1.2GM VIAL As Ordered ONE (17:30)
[2022-11-21] MEDS ORDERED: GENTAMICIN SULF 80MG/2ML VIAL As Ordered ONE (17:30)
[2022-11-21] MEDS ORDERED: KETOROLAC 60MG 2ML VIAL As Ordered ONE (17:36)
[2022-11-21] MEDS ORDERED: HYDROmorphone HCL 2MG/ML 1ML VIAL As Ordered ONE (17:51)
[2022-11-21] MEDS ORDERED: METOCLOPRAMIDE INJ 10MG/2ML VIAL As Ordered ONE (18:29)
[2022-11-21] MEDS ORDERED: HYDROMORPHONE HCL 0.5 MG/ 0.5 ML SYRINGE IV PRN (18:55)
[2022-11-21] MEDS ORDERED: ONDANSETRON 4MG 2ML VIAL IV PRN (18:55)
[2022-11-21] MEDS ORDERED: fentaNYL 100 MCG/2 ML INJECTION IV PRN (18:55)
[2022-11-21] MEDS ORDERED: LR 1,000 ML IV SCH (18:55)
[2022-11-21] MEDS ORDERED: oxyCODONE 5MG TAB PO PRN (18:55)
[2022-11-22 00:30] VITALS: BP 104/59; TEMP 96.8; O2SAT 96
[2022-11-22] MEDS: CEFEPIME HCL 2 GM in D5W MINI-BAG PLUS 50 ML IV SCH (00:45)
[2022-11-22] MEDS: ALBUTEROL 90 MCG/ACT 8GM HFA INHALER INH PRN (02:52)
[2022-11-22 04:30] VITALS: BP 103/60; TEMP 98.6; O2SAT 97
[2022-11-22 06:34] LABS: HEMATOCRIT 26.5 % (36.0-47.0); HEMOGLOBIN 8.2 g/dl (12.0-15.5); MEAN CORPUSCULAR HEMOGLOBIN 26.5 pg (27.0-33.0); MEAN CORPUSCULAR HGB CONC 30.9 g/dl (32.0-36.5); MEAN CORPUSCULAR VOLUME 85.8 fl (80.0-96.0); PLATELET COUNT, AUTOMATED 519 10^3/uL (150-450); RED BLOOD COUNT 3.09 10^6/uL (4.00-5.40); WHITE BLOOD COUNT 11.3 10^3/uL (4.0-10.0)
[2022-11-22 07:06] LABS: ALKALINE PHOSPHATASE 193 U/L (46-116); ALT/SGPT 11 U/L (7.0-40); AST/SGOT 20 U/L (<34); BILIRUBIN,TOTAL 0.4 MG/DL (0.3-1.2); BLOOD UREA NITROGEN 18 MG/DL (9-23); CALCIUM LEVEL 8.2 MG/DL (8.3-10.6); CARBON DIOXIDE LEVEL 26 MMOL/L (20-31); CHLORIDE LEVEL 106 MMOL/L (98-107); CREATININE FOR GFR 0.75 MG/DL (0.55-1.30); GLOMERULAR FILTRATION RATE > 60.0 (>39); GLUCOSE, FASTING 187 MG/DL (74-106); MAGNESIUM LEVEL 2.1 MG/DL (1.8-2.4); PHOSPHORUS LEVEL 3.7 MG/DL (2.4-5.1); POTASSIUM SERUM 4.5 MMOL/L (3.5-5.1); SODIUM LEVEL 140 MMOL/L (136-145); TOTAL PROTEIN 5.2 G/DL (5.7-8.2)
[2022-11-22] MEDS: ADVAIR HFA 230/21MCG INHALER INH SCH ×2 (07:51→20:41)
[2022-11-22] MEDS: ASCORBIC ACID 500 MG TAB PO SCH (08:25)
[2022-11-22] MEDS: INSULIN LISPRO (NovoLOG) PER UNIT SC SCH ×4 (08:25→20:48)
[2022-11-22] MEDS: FERROUS SULFATE 325MG TAB PO SCH (08:26)
[2022-11-22] MEDS: PERCOCET 5MG/325MG TAB PO PRN ×3 (08:27→20:47)
[2022-11-22] MEDS: DOCUSATE SODIUM 100MG CAPSULE PO SCH ×2 (08:27→20:46)
[2022-11-22] MEDS: ASPIRIN 81MG ENTERIC TABLET PO SCH ×2 (08:45→20:46)
[2022-11-22] MEDS: MEROPENEM INJ 1 GM in IV 1 EA IV SCH ×2 (08:45→16:41)
[2022-11-22] MEDS: ATORVASTATIN 10 MG TAB PO SCH (08:45)
[2022-11-22] MEDS: guaiFENesin ER 600 MG TAB PO SCH ×2 (08:45→20:46)
[2022-11-22] MEDS: MONTELUKAST 10 MG TAB PO SCH (08:45)
[2022-11-22] MEDS: BISACODYL 10MG SUPP PR SCH ×2 (08:46→21:00)
[2022-11-22] MEDS: THEOPHYLLINE (THEO-24) 100MG SR **CAPSULE PO SCH (08:46)
[2022-11-22 10:00] VITALS: BP 120/53; TEMP 99; O2SAT 94
[2022-11-22] MEDS: MULTIVITAMINS/MINERALS THERAP 1 TAB PO SCH (10:36)
[2022-11-22 14:00] VITALS: BP 123/53; TEMP 98.6; O2SAT 92
[2022-11-22] MEDS: FUROSEMIDE 20 MG TAB PO SCH (16:41)
[2022-11-22 16:45] VITALS: BP 124/54
[2022-11-22 19:21] VITALS: BP 106/57; TEMP 97.9; O2SAT 95
[2022-11-23] MEDS: MEROPENEM INJ 1 GM in IV 1 EA IV SCH ×3 (00:53→18:04)
[2022-11-23 05:48] VITALS: BP 120/65; TEMP 97.9; O2SAT 97
[2022-11-23 06:01] LABS: HEMATOCRIT 23.5 % (36.0-47.0); HEMOGLOBIN 7.3 g/dl (12.0-15.5); MEAN CORPUSCULAR HEMOGLOBIN 26.8 pg (27.0-33.0); MEAN CORPUSCULAR HGB CONC 31.1 g/dl (32.0-36.5); MEAN CORPUSCULAR VOLUME 86.4 fl (80.0-96.0); PLATELET COUNT, AUTOMATED 458 10^3/uL (150-450); RED BLOOD COUNT 2.72 10^6/uL (4.00-5.40); WHITE BLOOD COUNT 10.5 10^3/uL (4.0-10.0)
[2022-11-23 06:32] LABS: BLOOD UREA NITROGEN 13 MG/DL (9-23); CALCIUM LEVEL 7.8 MG/DL (8.3-10.6); CARBON DIOXIDE LEVEL 28 MMOL/L (20-31); CHLORIDE LEVEL 107 MMOL/L (98-107); GLOMERULAR FILTRATION RATE > 60.0 (>39); GLUCOSE, FASTING 130 MG/DL (74-106); MAGNESIUM LEVEL 2.2 MG/DL (1.8-2.4); PHOSPHORUS LEVEL 3.1 MG/DL (2.4-5.1); POTASSIUM SERUM 3.8 MMOL/L (3.5-5.1); SODIUM LEVEL 142 MMOL/L (136-145)
[2022-11-23] MEDS: ADVAIR HFA 230/21MCG INHALER INH SCH ×2 (07:28→19:35)
[2022-11-23] MEDS: MULTIVITAMINS/MINERALS THERAP 1 TAB PO SCH (08:13)
[2022-11-23] MEDS: MONTELUKAST 10 MG TAB PO SCH (08:13)
[2022-11-23] MEDS: FUROSEMIDE 20 MG TAB PO SCH (08:14)
[2022-11-23] MEDS: ASPIRIN 81MG ENTERIC TABLET PO SCH ×2 (08:14→20:31)
[2022-11-23] MEDS: PERCOCET 5MG/325MG TAB PO PRN ×2 (08:15→20:32)
[2022-11-23] MEDS: DOCUSATE SODIUM 100MG CAPSULE PO SCH ×2 (08:16→20:30)
[2022-11-23] MEDS: INSULIN LISPRO (NovoLOG) PER UNIT SC SCH ×4 (08:16→20:32)
[2022-11-23] MEDS: FERROUS SULFATE 325MG TAB PO SCH (08:16)
[2022-11-23] MEDS: ATORVASTATIN 10 MG TAB PO SCH (08:17)
[2022-11-23] MEDS: guaiFENesin ER 600 MG TAB PO SCH ×2 (08:17→20:31)
[2022-11-23] MEDS: ASCORBIC ACID 500 MG TAB PO SCH (08:17)
[2022-11-23] MEDS: BISACODYL 10MG SUPP PR SCH ×2 (08:18→20:33)
[2022-11-23] MEDS: THEOPHYLLINE (THEO-24) 100MG SR **CAPSULE PO SCH (08:25)
[2022-11-23] MEDS ORDERED: LIDOCAINE 1% MDV 20ML VIAL As Ordered ONE (14:57)
[2022-11-23 16:00] VITALS: BP 132/61; TEMP 98.2; O2SAT 97
[2022-11-23] MEDS: SODIUM CHLORIDE 0.9% INJ 10 ML SYR IV SCH (19:22)
[2022-11-23 20:09] VITALS: BP 116/54; TEMP 98.4; O2SAT 95
[2022-11-24] VITALS (7 sets, daily range): BP systolic 113–140; BP diastolic 56–73; TEMP 97.9–99; O2SAT 96–99
[2022-11-24] MEDS: MEROPENEM INJ 1 GM in IV 1 EA IV SCH ×3 (01:42→17:15)
[2022-11-24 06:04] LABS: HEMOGLOBIN 7.4 g/dl (12.0-15.5); MEAN CORPUSCULAR HEMOGLOBIN 26.4 pg (27.0-33.0); MEAN CORPUSCULAR HGB CONC 30.8 g/dl (32.0-36.5); MEAN CORPUSCULAR VOLUME 85.7 fl (80.0-96.0); PLATELET COUNT, AUTOMATED 426 10^3/uL (150-450); WHITE BLOOD COUNT 9.5 10^3/uL (4.0-10.0)
[2022-11-24] MEDS: ADVAIR HFA 230/21MCG INHALER INH SCH ×2 (06:10→21:08)
[2022-11-24 06:41] LABS: BLOOD UREA NITROGEN 11 MG/DL (9-23); CALCIUM LEVEL 8.3 MG/DL (8.3-10.6); CARBON DIOXIDE LEVEL 29 MMOL/L (20-31); CHLORIDE LEVEL 106 MMOL/L (98-107); GLOMERULAR FILTRATION RATE > 60.0 (>39); GLUCOSE, FASTING 121 MG/DL (74-106); PHOSPHORUS LEVEL 3.4 MG/DL (2.4-5.1); SODIUM LEVEL 142 MMOL/L (136-145)
[2022-11-24] MEDS: INSULIN LISPRO (NovoLOG) PER UNIT SC SCH ×4 (08:25→20:33)
[2022-11-24] MEDS: guaiFENesin ER 600 MG TAB PO SCH ×2 (08:26→20:32)
[2022-11-24] MEDS: MULTIVITAMINS/MINERALS THERAP 1 TAB PO SCH (08:27)
[2022-11-24] MEDS: FERROUS SULFATE 325MG TAB PO SCH (08:28)
[2022-11-24] MEDS: MONTELUKAST 10 MG TAB PO SCH (08:29)
[2022-11-24] MEDS: ATORVASTATIN 10 MG TAB PO SCH (08:29)
[2022-11-24] MEDS: DOCUSATE SODIUM 100MG CAPSULE PO SCH ×2 (08:30→20:33)
[2022-11-24] MEDS: ASPIRIN 81MG ENTERIC TABLET PO SCH ×2 (08:30→20:32)
[2022-11-24] MEDS: ASCORBIC ACID 500 MG TAB PO SCH (08:30)
[2022-11-24] MEDS: FUROSEMIDE 20 MG TAB PO SCH (08:31)
[2022-11-24] MEDS: THEOPHYLLINE (THEO-24) 100MG SR **CAPSULE PO SCH (08:31)
[2022-11-24] MEDS: BISACODYL 10MG SUPP PR SCH ×2 (08:32→20:33)
[2022-11-24] MEDS: SODIUM CHLORIDE 0.9% INJ 10 ML SYR IV PRN ×2 (10:12→15:17)
[2022-11-24] MEDS: SODIUM CHLORIDE 0.9% INJ 10 ML SYR IV SCH (17:17)
[2022-11-24] MEDS: PERCOCET 5MG/325MG TAB PO PRN (20:38)
[2022-11-24] MEDS: ALBUTEROL 90 MCG/ACT 8GM HFA INHALER INH PRN (21:08)
[2022-11-25] MEDS: MEROPENEM INJ 1 GM in IV 1 EA IV SCH ×3 (00:47→17:37)
[2022-11-25] MEDS: PERCOCET 5MG/325MG TAB PO PRN ×2 (03:34→13:02)
[2022-11-25] MEDS: SODIUM CHLORIDE 0.9% INJ 10 ML SYR IV SCH ×2 (05:03→17:39)
[2022-11-25 06:00] VITALS: BP 114/68; TEMP 98.6; O2SAT 95
[2022-11-25 07:16] LABS: HEMATOCRIT 27.7 % (36.0-47.0); HEMOGLOBIN 8.6 g/dl (12.0-15.5); MEAN CORPUSCULAR HEMOGLOBIN 26.6 pg (27.0-33.0); MEAN CORPUSCULAR VOLUME 85.8 fl (80.0-96.0); PLATELET COUNT, AUTOMATED 388 10^3/uL (150-450); RED BLOOD COUNT 3.23 10^6/uL (4.00-5.40); WHITE BLOOD COUNT 10.5 10^3/uL (4.0-10.0)
[2022-11-25] MEDS: ADVAIR HFA 230/21MCG INHALER INH SCH ×2 (07:20→19:35)
[2022-11-25] MEDS: ALBUTEROL 90 MCG/ACT 8GM HFA INHALER INH PRN ×4 (07:20→19:36)
[2022-11-25 07:50] LABS: BLOOD UREA NITROGEN 10 MG/DL (9-23); CALCIUM LEVEL 8.2 MG/DL (8.3-10.6); CARBON DIOXIDE LEVEL 30 MMOL/L (20-31); CHLORIDE LEVEL 106 MMOL/L (98-107); CREATININE FOR GFR 0.71 MG/DL (0.55-1.30); GLOMERULAR FILTRATION RATE > 60.0 (>39); GLUCOSE, FASTING 133 MG/DL (74-106); POTASSIUM SERUM 3.9 MMOL/L (3.5-5.1); SODIUM LEVEL 143 MMOL/L (136-145)
[2022-11-25] MEDS ORDERED: MIDODRINE 5 MG TAB PO ONE ×2 (08:30→13:30)
[2022-11-25] MEDS ORDERED: metOLazone 5 MG TAB PO ONE (08:30)
[2022-11-25] MEDS ORDERED: FUROSEMIDE 40MG/4ML VIAL IV ONE ×2 (08:30→19:00)
[2022-11-25] MEDS: BISACODYL 10MG SUPP PR SCH ×2 (09:00→19:54)
[2022-11-25] MEDS: MULTIVITAMINS/MINERALS THERAP 1 TAB PO SCH (10:53)
[2022-11-25] MEDS: MONTELUKAST 10 MG TAB PO SCH (10:53)
[2022-11-25] MEDS: THEOPHYLLINE (THEO-24) 100MG SR **CAPSULE PO SCH (10:53)
[2022-11-25] MEDS: DOCUSATE SODIUM 100MG CAPSULE PO SCH ×2 (10:53→19:53)
[2022-11-25] MEDS: ASCORBIC ACID 500 MG TAB PO SCH (10:53)
[2022-11-25] MEDS: FERROUS SULFATE 325MG TAB PO SCH (10:54)
[2022-11-25] MEDS: ASPIRIN 81MG ENTERIC TABLET PO SCH ×2 (10:54→19:53)
[2022-11-25] MEDS: guaiFENesin ER 600 MG TAB PO SCH ×2 (10:54→19:53)
[2022-11-25] MEDS: ATORVASTATIN 10 MG TAB PO SCH (10:54)
[2022-11-25] MEDS: INSULIN LISPRO (NovoLOG) PER UNIT SC SCH ×4 (10:56→19:47)
[2022-11-25 14:00] VITALS: BP 116/97; TEMP 98.4; O2SAT 97
[2022-11-25 18:05] LABS: IONIZED CALCIUM 4.4 MG/DL (4.5-5.3)
[2022-11-25 18:12] LABS: HEMOGLOBIN 8.9 g/dl (12.0-15.5)
[2022-11-25 18:43] LABS: BLOOD UREA NITROGEN 12 MG/DL (9-23); CARBON DIOXIDE LEVEL 28 MMOL/L (20-31); CHLORIDE LEVEL 104 MMOL/L (98-107); CREATININE FOR GFR 0.74 MG/DL (0.55-1.30); GLOMERULAR FILTRATION RATE > 60.0 (>39); GLUCOSE, FASTING 167 MG/DL (74-106); MAGNESIUM LEVEL 1.9 MG/DL (1.8-2.4); POTASSIUM SERUM 3.8 MMOL/L (3.5-5.1); SODIUM LEVEL 140 MMOL/L (136-145)
[2022-11-25 19:53] VITALS: BP 117/56
[2022-11-25] MEDS ORDERED: NYSTATIN 100,000 UNITS/GM TOPICAL PWD 15GM TOP PRN (21:10)
[2022-11-25 22:00] VITALS: BP 119/56; TEMP 98.8; O2SAT 96
[2022-11-26] MEDS: MEROPENEM INJ 1 GM in IV 1 EA IV SCH ×3 (00:26→17:44)
[2022-11-26] MEDS: PERCOCET 5MG/325MG TAB PO PRN ×2 (02:47→20:50)
[2022-11-26] MEDS: SODIUM CHLORIDE 0.9% INJ 10 ML SYR IV SCH ×2 (05:03→17:45)
[2022-11-26 06:00] VITALS: BP 112/67; TEMP 97.9; O2SAT 95
[2022-11-26] MEDS: ALBUTEROL 90 MCG/ACT 8GM HFA INHALER INH PRN ×3 (07:21→15:09)
[2022-11-26] MEDS: ADVAIR HFA 230/21MCG INHALER INH SCH ×2 (07:21→19:52)
[2022-11-26] MEDS: ATORVASTATIN 10 MG TAB PO SCH (08:04)
[2022-11-26] MEDS: DOCUSATE SODIUM 100MG CAPSULE PO SCH ×2 (08:04→20:48)
[2022-11-26] MEDS: guaiFENesin ER 600 MG TAB PO SCH ×2 (08:04→20:48)
[2022-11-26] MEDS: ASCORBIC ACID 500 MG TAB PO SCH (08:04)
[2022-11-26] MEDS: THEOPHYLLINE (THEO-24) 100MG SR **CAPSULE PO SCH (08:04)
[2022-11-26] MEDS: ASPIRIN 81MG ENTERIC TABLET PO SCH ×2 (08:04→20:48)
[2022-11-26] MEDS: INSULIN LISPRO (NovoLOG) PER UNIT SC SCH ×4 (08:04→20:20)
[2022-11-26] MEDS: FUROSEMIDE 20 MG TAB PO SCH (08:05)
[2022-11-26] MEDS: MULTIVITAMINS/MINERALS THERAP 1 TAB PO SCH (08:05)
[2022-11-26] MEDS: MONTELUKAST 10 MG TAB PO SCH (08:05)
[2022-11-26] MEDS: FERROUS SULFATE 325MG TAB PO SCH (08:06)
[2022-11-26] MEDS: BISACODYL 10MG SUPP PR SCH ×2 (08:06→20:46)
[2022-11-26 14:00] VITALS: BP 126/56; TEMP 98.2; O2SAT 95
[2022-11-26 22:00] VITALS: BP 122/72; TEMP 98.8; O2SAT 96
[2022-11-27] MEDS: MEROPENEM INJ 1 GM in IV 1 EA IV SCH ×3 (01:41→17:12)
[2022-11-27] MEDS: SODIUM CHLORIDE 0.9% INJ 10 ML SYR IV SCH ×2 (05:30→17:13)
[2022-11-27 06:00] VITALS: BP 112/68; TEMP 98.2; O2SAT 94
[2022-11-27 06:16] LABS: HEMATOCRIT 28.4 % (36.0-47.0); HEMOGLOBIN 8.8 g/dl (12.0-15.5); MEAN CORPUSCULAR HEMOGLOBIN 26.8 pg (27.0-33.0); MEAN CORPUSCULAR VOLUME 86.6 fl (80.0-96.0); PLATELET COUNT, AUTOMATED 358 10^3/uL (150-450); RED BLOOD COUNT 3.28 10^6/uL (4.00-5.40); WHITE BLOOD COUNT 9.1 10^3/uL (4.0-10.0)
[2022-11-27 06:40] LABS: BLOOD UREA NITROGEN 12 MG/DL (9-23); CALCIUM LEVEL 8.3 MG/DL (8.3-10.6); CARBON DIOXIDE LEVEL 31 MMOL/L (20-31); CHLORIDE LEVEL 104 MMOL/L (98-107); CREATININE FOR GFR 0.69 MG/DL (0.55-1.30); GLOMERULAR FILTRATION RATE > 60.0 (>39); GLUCOSE, FASTING 111 MG/DL (74-106); POTASSIUM SERUM 3.8 MMOL/L (3.5-5.1); SODIUM LEVEL 142 MMOL/L (136-145)
[2022-11-27] MEDS: ADVAIR HFA 230/21MCG INHALER INH SCH ×2 (07:39→20:07)
[2022-11-27] MEDS: ALBUTEROL 90 MCG/ACT 8GM HFA INHALER INH PRN ×2 (07:40→20:07)
[2022-11-27] MEDS: INSULIN LISPRO (NovoLOG) PER UNIT SC SCH ×4 (08:18→21:00)
[2022-11-27] MEDS: guaiFENesin ER 600 MG TAB PO SCH ×2 (08:19→21:07)
[2022-11-27] MEDS: DOCUSATE SODIUM 100MG CAPSULE PO SCH ×2 (08:20→21:07)
[2022-11-27] MEDS: ASPIRIN 81MG ENTERIC TABLET PO SCH ×2 (08:20→21:07)
[2022-11-27] MEDS: FUROSEMIDE 20 MG TAB PO SCH (08:20)
[2022-11-27] MEDS: ASCORBIC ACID 500 MG TAB PO SCH (08:21)
[2022-11-27] MEDS: ATORVASTATIN 10 MG TAB PO SCH (08:21)
[2022-11-27] MEDS: MULTIVITAMINS/MINERALS THERAP 1 TAB PO SCH (08:22)
[2022-11-27] MEDS: THEOPHYLLINE (THEO-24) 100MG SR **CAPSULE PO SCH (08:23)
[2022-11-27] MEDS: MONTELUKAST 10 MG TAB PO SCH (08:23)
[2022-11-27] MEDS: BISACODYL 10MG SUPP PR SCH ×2 (09:00→21:00)
[2022-11-27] MEDS: FERROUS SULFATE 325MG TAB PO SCH (09:49)
[2022-11-27] MEDS: SODIUM CHLORIDE 0.9% INJ 10 ML SYR IV PRN (09:49)
[2022-11-27 14:00] VITALS: BP 135/65; TEMP 98.2; O2SAT 98
[2022-11-27] MEDS: ACETAMINOPHEN TAB 650MG DOSE (2X325MG) PO PRN (14:11)
[2022-11-27] MEDS: PERCOCET 5MG/325MG TAB PO PRN (18:33)
[2022-11-27 21:28] VITALS: BP 126/65; TEMP 98.2; O2SAT 97
[2022-11-28] MEDS: MEROPENEM INJ 1 GM in IV 1 EA IV SCH ×3 (01:26→17:31)
[2022-11-28] MEDS: SODIUM CHLORIDE 0.9% INJ 10 ML SYR IV PRN (02:58)
[2022-11-28] MEDS: SODIUM CHLORIDE 0.9% INJ 10 ML SYR IV SCH ×2 (05:01→18:19)
[2022-11-28 05:48] LABS: HEMATOCRIT 27.6 % (36.0-47.0); HEMOGLOBIN 8.6 g/dl (12.0-15.5); MEAN CORPUSCULAR HEMOGLOBIN 26.8 pg (27.0-33.0); MEAN CORPUSCULAR HGB CONC 31.2 g/dl (32.0-36.5); PLATELET COUNT, AUTOMATED 346 10^3/uL (150-450); RED BLOOD COUNT 3.21 10^6/uL (4.00-5.40); WHITE BLOOD COUNT 8.1 10^3/uL (4.0-10.0)
[2022-11-28 06:00] VITALS: BP 108/56; TEMP 98.4; O2SAT 95
[2022-11-28 06:24] LABS: BLOOD UREA NITROGEN 13 MG/DL (9-23); CALCIUM LEVEL 8.3 MG/DL (8.3-10.6); CARBON DIOXIDE LEVEL 30 MMOL/L (20-31); CHLORIDE LEVEL 104 MMOL/L (98-107); CREATININE FOR GFR 0.68 MG/DL (0.55-1.30); GLOMERULAR FILTRATION RATE > 60.0 (>39); GLUCOSE, FASTING 119 MG/DL (74-106); POTASSIUM SERUM 3.8 MMOL/L (3.5-5.1); SODIUM LEVEL 141 MMOL/L (136-145)
[2022-11-28] MEDS: ADVAIR HFA 230/21MCG INHALER INH SCH ×2 (07:37→21:20)
[2022-11-28] MEDS: ALBUTEROL 90 MCG/ACT 8GM HFA INHALER INH PRN ×2 (07:39→14:14)
[2022-11-28] MEDS: INSULIN LISPRO (NovoLOG) PER UNIT SC SCH ×4 (08:14→21:00)
[2022-11-28] MEDS: DOCUSATE SODIUM 100MG CAPSULE PO SCH ×2 (08:22→20:44)
[2022-11-28] MEDS: FUROSEMIDE 20 MG TAB PO SCH (08:23)
[2022-11-28] MEDS: FERROUS SULFATE 325MG TAB PO SCH (08:23)
[2022-11-28] MEDS: guaiFENesin ER 600 MG TAB PO SCH ×2 (08:23→20:45)
[2022-11-28] MEDS: MONTELUKAST 10 MG TAB PO SCH (08:23)
[2022-11-28] MEDS: ATORVASTATIN 10 MG TAB PO SCH (08:23)
[2022-11-28] MEDS: ASPIRIN 81MG ENTERIC TABLET PO SCH ×2 (08:23→20:44)
[2022-11-28] MEDS: BISACODYL 10MG SUPP PR SCH ×2 (08:24→21:00)
[2022-11-28] MEDS: ASCORBIC ACID 500 MG TAB PO SCH (08:24)
[2022-11-28] MEDS: MULTIVITAMINS/MINERALS THERAP 1 TAB PO SCH (08:24)
[2022-11-28] MEDS: THEOPHYLLINE (THEO-24) 100MG SR **CAPSULE PO SCH (08:24)
[2022-11-28] MEDS: PERCOCET 5MG/325MG TAB PO PRN ×2 (08:25→20:45)
[2022-11-28 14:00] VITALS: BP 112/56; TEMP 98.6; O2SAT 96
[2022-11-28 20:12] VITALS: BP 128/78; TEMP 99.1; O2SAT 95
[2022-11-29] MEDS: MEROPENEM INJ 1 GM in IV 1 EA IV SCH ×3 (00:56→16:10)
[2022-11-29] MEDS: SODIUM CHLORIDE 0.9% INJ 10 ML SYR IV PRN ×2 (01:36→08:54)
[2022-11-29] MEDS: SODIUM CHLORIDE 0.9% INJ 10 ML SYR IV SCH ×2 (05:24→17:05)
[2022-11-29 05:47] VITALS: BP 133/75; TEMP 98.2; O2SAT 97
[2022-11-29 06:40] LABS: HEMATOCRIT 30.3 % (36.0-47.0); HEMOGLOBIN 9.4 g/dl (12.0-15.5); MEAN CORPUSCULAR HEMOGLOBIN 27.1 pg (27.0-33.0); MEAN CORPUSCULAR VOLUME 87.3 fl (80.0-96.0); PLATELET COUNT, AUTOMATED 375 10^3/uL (150-450); RED BLOOD COUNT 3.47 10^6/uL (4.00-5.40); WHITE BLOOD COUNT 8.7 10^3/uL (4.0-10.0)
[2022-11-29 07:08] LABS: BLOOD UREA NITROGEN 14 MG/DL (9-23); CALCIUM LEVEL 8.4 MG/DL (8.3-10.6); CARBON DIOXIDE LEVEL 28 MMOL/L (20-31); CHLORIDE LEVEL 103 MMOL/L (98-107); CREATININE FOR GFR 0.67 MG/DL (0.55-1.30); GLOMERULAR FILTRATION RATE > 60.0 (>39); GLUCOSE, FASTING 128 MG/DL (74-106); POTASSIUM SERUM 3.8 MMOL/L (3.5-5.1); SODIUM LEVEL 141 MMOL/L (136-145)
[2022-11-29] MEDS: INSULIN LISPRO (NovoLOG) PER UNIT SC SCH ×4 (07:40→20:17)
[2022-11-29] MEDS: DOCUSATE SODIUM 100MG CAPSULE PO SCH ×2 (07:42→20:17)
[2022-11-29] MEDS: ATORVASTATIN 10 MG TAB PO SCH (07:43)
[2022-11-29] MEDS: guaiFENesin ER 600 MG TAB PO SCH ×2 (07:43→20:17)
[2022-11-29] MEDS: FUROSEMIDE 20 MG TAB PO SCH (07:43)
[2022-11-29] MEDS: FERROUS SULFATE 325MG TAB PO SCH (07:43)
[2022-11-29] MEDS: ASPIRIN 81MG ENTERIC TABLET PO SCH ×2 (07:43→20:17)
[2022-11-29] MEDS: THEOPHYLLINE (THEO-24) 100MG SR **CAPSULE PO SCH (07:44)
[2022-11-29] MEDS: MONTELUKAST 10 MG TAB PO SCH (07:44)
[2022-11-29] MEDS: MULTIVITAMINS/MINERALS THERAP 1 TAB PO SCH (07:44)
[2022-11-29] MEDS: ASCORBIC ACID 500 MG TAB PO SCH (07:45)
[2022-11-29] MEDS: PERCOCET 5MG/325MG TAB PO PRN ×2 (07:45→20:19)
[2022-11-29] MEDS: BISACODYL 10MG SUPP PR SCH ×2 (07:48→20:17)
[2022-11-29] MEDS: ADVAIR HFA 230/21MCG INHALER INH SCH ×2 (08:19→20:37)
[2022-11-29] MEDS: ALBUTEROL 90 MCG/ACT 8GM HFA INHALER INH PRN ×3 (08:20→20:38)
[2022-11-30] MEDS: MEROPENEM INJ 1 GM in IV 1 EA IV SCH ×3 (00:53→16:54)
[2022-11-30] MEDS: SODIUM CHLORIDE 0.9% INJ 10 ML SYR IV PRN ×2 (01:51→10:18)
[2022-11-30] MEDS: SODIUM CHLORIDE 0.9% INJ 10 ML SYR IV SCH ×2 (05:38→18:00)
[2022-11-30 06:21] VITALS: BP 131/62; TEMP 98.8; O2SAT 95
[2022-11-30 06:27] LABS: BASO # 0.1 10^3/uL (0.0-0.2); BASO % 0.8 % (0.0-1.0); EOS # 0.5 10^3/uL (0.0-0.5); EOS % 6.9 % (0.0-3.0); HEMATOCRIT 27.9 % (36.0-47.0); HEMOGLOBIN 8.6 g/dl (12.0-15.5); LYMPH # 2.3 10^3/uL (1.5-5.0); LYMPH % 30.1 % (24.0-44.0); MEAN CORPUSCULAR HGB CONC 30.8 g/dl (32.0-36.5); MEAN CORPUSCULAR VOLUME 87.5 fl (80.0-96.0); MONO # 0.9 10^3/uL (0.0-0.8); MONO % 11.5 % (2.0-8.0); NEUTROPHILS # 3.8 10^3/uL (1.5-8.5); PLATELET COUNT, AUTOMATED 322 10^3/uL (150-450); RED BLOOD COUNT 3.19 10^6/uL (4.00-5.40); WHITE BLOOD COUNT 7.5 10^3/uL (4.0-10.0)
[2022-11-30 06:32] LABS: HEMATOCRIT 27.4 % (36.0-47.0); HEMOGLOBIN 8.5 g/dl (12.0-15.5); MEAN CORPUSCULAR HEMOGLOBIN 26.6 pg (27.0-33.0); MEAN CORPUSCULAR VOLUME 85.9 fl (80.0-96.0); PLATELET COUNT, AUTOMATED 329 10^3/uL (150-450); RED BLOOD COUNT 3.19 10^6/uL (4.00-5.40); WHITE BLOOD COUNT 7.6 10^3/uL (4.0-10.0)
[2022-11-30 06:51] LABS: BLOOD UREA NITROGEN 13 MG/DL (9-23); CALCIUM LEVEL 8.4 MG/DL (8.3-10.6); CARBON DIOXIDE LEVEL 32 MMOL/L (20-31); CHLORIDE LEVEL 105 MMOL/L (98-107); GLOMERULAR FILTRATION RATE > 60.0 (>39); GLUCOSE, FASTING 109 MG/DL (74-106); POTASSIUM SERUM 3.7 MMOL/L (3.5-5.1); SODIUM LEVEL 142 MMOL/L (136-145)
[2022-11-30] MEDS: INSULIN LISPRO (NovoLOG) PER UNIT SC SCH ×4 (07:30→21:00)
[2022-11-30] MEDS: DOCUSATE SODIUM 100MG CAPSULE PO SCH ×2 (08:34→20:51)
[2022-11-30] MEDS: THEOPHYLLINE (THEO-24) 100MG SR **CAPSULE PO SCH (08:34)
[2022-11-30] MEDS: ASCORBIC ACID 500 MG TAB PO SCH (08:35)
[2022-11-30] MEDS: MULTIVITAMINS/MINERALS THERAP 1 TAB PO SCH (08:35)
[2022-11-30] MEDS: FERROUS SULFATE 325MG TAB PO SCH (08:35)
[2022-11-30] MEDS: FUROSEMIDE 20 MG TAB PO SCH (08:35)
[2022-11-30] MEDS: ASPIRIN 81MG ENTERIC TABLET PO SCH ×2 (08:36→20:51)
[2022-11-30] MEDS: ATORVASTATIN 10 MG TAB PO SCH (08:36)
[2022-11-30] MEDS: MONTELUKAST 10 MG TAB PO SCH (08:36)
[2022-11-30] MEDS: guaiFENesin ER 600 MG TAB PO SCH ×2 (08:36→20:51)
[2022-11-30] MEDS: PERCOCET 5MG/325MG TAB PO PRN ×3 (08:42→20:52)
[2022-11-30] MEDS: BISACODYL 10MG SUPP PR SCH ×2 (09:00→20:52)
[2022-11-30] MEDS: ALBUTEROL 90 MCG/ACT 8GM HFA INHALER INH PRN ×2 (11:18→20:16)
[2022-11-30] MEDS: ADVAIR HFA 230/21MCG INHALER INH SCH ×2 (11:18→20:16)
[2022-12-01] MEDS: MEROPENEM INJ 1 GM in IV 1 EA IV SCH ×3 (00:50→18:27)
[2022-12-01] MEDS: SODIUM CHLORIDE 0.9% INJ 10 ML SYR IV SCH ×2 (05:26→18:00)
[2022-12-01 06:00] VITALS: BP 125/62; TEMP 98.4; O2SAT 96
[2022-12-01 06:31] LABS: HEMATOCRIT 28.2 % (36.0-47.0); HEMOGLOBIN 8.7 g/dl (12.0-15.5); MEAN CORPUSCULAR HEMOGLOBIN 26.9 pg (27.0-33.0); MEAN CORPUSCULAR HGB CONC 30.9 g/dl (32.0-36.5); PLATELET COUNT, AUTOMATED 318 10^3/uL (150-450); RED BLOOD COUNT 3.24 10^6/uL (4.00-5.40); WHITE BLOOD COUNT 7.3 10^3/uL (4.0-10.0)
[2022-12-01 07:03] LABS: BLOOD UREA NITROGEN 15 MG/DL (9-23); CARBON DIOXIDE LEVEL 31 MMOL/L (20-31); CHLORIDE LEVEL 103 MMOL/L (98-107); CREATININE FOR GFR 0.68 MG/DL (0.55-1.30); GLOMERULAR FILTRATION RATE > 60.0 (>39); GLUCOSE, FASTING 110 MG/DL (74-106); POTASSIUM SERUM 3.8 MMOL/L (3.5-5.1); SODIUM LEVEL 140 MMOL/L (136-145)
[2022-12-01] MEDS: ADVAIR HFA 230/21MCG INHALER INH SCH ×2 (07:27→19:38)
[2022-12-01] MEDS: INSULIN LISPRO (NovoLOG) PER UNIT SC SCH ×4 (08:57→20:52)
[2022-12-01] MEDS: THEOPHYLLINE (THEO-24) 100MG SR **CAPSULE PO SCH (08:58)
[2022-12-01] MEDS: ASPIRIN 81MG ENTERIC TABLET PO SCH ×2 (08:58→21:13)
[2022-12-01] MEDS: DOCUSATE SODIUM 100MG CAPSULE PO SCH ×2 (08:58→21:13)
[2022-12-01] MEDS: FERROUS SULFATE 325MG TAB PO SCH (08:59)
[2022-12-01] MEDS: FUROSEMIDE 20 MG TAB PO SCH (08:59)
[2022-12-01] MEDS: ASCORBIC ACID 500 MG TAB PO SCH (08:59)
[2022-12-01] MEDS: ATORVASTATIN 10 MG TAB PO SCH (08:59)
[2022-12-01] MEDS: MULTIVITAMINS/MINERALS THERAP 1 TAB PO SCH (08:59)
[2022-12-01] MEDS: MONTELUKAST 10 MG TAB PO SCH (09:00)
[2022-12-01] MEDS: BISACODYL 10MG SUPP PR SCH ×2 (09:00→20:55)
[2022-12-01] MEDS: guaiFENesin ER 600 MG TAB PO SCH ×2 (09:00→21:13)
[2022-12-01] MEDS: PERCOCET 5MG/325MG TAB PO PRN ×3 (09:08→22:35)
[2022-12-01] MEDS: ALBUTEROL 90 MCG/ACT 8GM HFA INHALER INH PRN (19:38)
[2022-12-01 21:34] VITALS: BP 120/80; TEMP 97; O2SAT 95
[2022-12-02] MEDS: MEROPENEM INJ 1 GM in IV 1 EA IV SCH ×3 (00:40→17:55)
[2022-12-02] MEDS: SODIUM CHLORIDE 0.9% INJ 10 ML SYR IV PRN (01:37)
[2022-12-02] MEDS: PERCOCET 5MG/325MG TAB PO PRN ×3 (03:37→21:22)
[2022-12-02] MEDS: SODIUM CHLORIDE 0.9% INJ 10 ML SYR IV SCH ×2 (05:59→17:57)
[2022-12-02 06:00] VITALS: BP 118/68; TEMP 98.1; O2SAT 95
[2022-12-02 06:18] LABS: HEMATOCRIT 27.6 % (36.0-47.0); HEMOGLOBIN 8.5 g/dl (12.0-15.5); MEAN CORPUSCULAR HEMOGLOBIN 26.7 pg (27.0-33.0); MEAN CORPUSCULAR HGB CONC 30.8 g/dl (32.0-36.5); MEAN CORPUSCULAR VOLUME 86.8 fl (80.0-96.0); PLATELET COUNT, AUTOMATED 314 10^3/uL (150-450); RED BLOOD COUNT 3.18 10^6/uL (4.00-5.40); WHITE BLOOD COUNT 6.8 10^3/uL (4.0-10.0)
[2022-12-02 06:35] LABS: BLOOD UREA NITROGEN 13 MG/DL (9-23); CALCIUM LEVEL 8.4 MG/DL (8.3-10.6); CARBON DIOXIDE LEVEL 30 MMOL/L (20-31); CHLORIDE LEVEL 106 MMOL/L (98-107); CREATININE FOR GFR 0.67 MG/DL (0.55-1.30); GLOMERULAR FILTRATION RATE > 60.0 (>39); GLUCOSE, FASTING 115 MG/DL (74-106); POTASSIUM SERUM 4.1 MMOL/L (3.5-5.1); SODIUM LEVEL 143 MMOL/L (136-145)
[2022-12-02] MEDS: guaiFENesin ER 600 MG TAB PO SCH ×2 (08:14→21:21)
[2022-12-02] MEDS: INSULIN LISPRO (NovoLOG) PER UNIT SC SCH ×4 (08:14→21:00)
[2022-12-02] MEDS: ATORVASTATIN 10 MG TAB PO SCH (08:14)
[2022-12-02] MEDS: FERROUS SULFATE 325MG TAB PO SCH (08:14)
[2022-12-02] MEDS: MONTELUKAST 10 MG TAB PO SCH (08:14)
[2022-12-02] MEDS: THEOPHYLLINE (THEO-24) 100MG SR **CAPSULE PO SCH (08:14)
[2022-12-02] MEDS: ASCORBIC ACID 500 MG TAB PO SCH (08:14)
[2022-12-02] MEDS: DOCUSATE SODIUM 100MG CAPSULE PO SCH ×2 (08:14→21:22)
[2022-12-02] MEDS: ASPIRIN 81MG ENTERIC TABLET PO SCH ×2 (08:14→21:21)
[2022-12-02] MEDS: MULTIVITAMINS/MINERALS THERAP 1 TAB PO SCH (08:15)
[2022-12-02] MEDS: FUROSEMIDE 20 MG TAB PO SCH (08:15)
[2022-12-02] MEDS: BISACODYL 10MG SUPP PR SCH ×2 (08:19→21:00)
[2022-12-02] MEDS: ALBUTEROL 90 MCG/ACT 8GM HFA INHALER INH PRN ×3 (08:31→20:29)
[2022-12-02] MEDS: ADVAIR HFA 230/21MCG INHALER INH SCH ×2 (08:31→20:30)
[2022-12-02 14:15] VITALS: BP 121/62; TEMP 98.6; O2SAT 98
[2022-12-02 22:00] VITALS: BP 106/79; TEMP 98.6; O2SAT 95
[2022-12-03] MEDS: MEROPENEM INJ 1 GM in IV 1 EA IV SCH ×3 (01:12→17:29)
[2022-12-03] MEDS: SODIUM CHLORIDE 0.9% INJ 10 ML SYR IV PRN (02:23)
[2022-12-03] MEDS: SODIUM CHLORIDE 0.9% INJ 10 ML SYR IV SCH ×2 (05:21→18:26)
[2022-12-03 06:00] VITALS: BP 117/71; TEMP 98.2; O2SAT 96
[2022-12-03 07:14] LABS: HEMATOCRIT 28.8 % (36.0-47.0); MEAN CORPUSCULAR HEMOGLOBIN 27.1 pg (27.0-33.0); MEAN CORPUSCULAR HGB CONC 31.3 g/dl (32.0-36.5); MEAN CORPUSCULAR VOLUME 86.7 fl (80.0-96.0); PLATELET COUNT, AUTOMATED 317 10^3/uL (150-450); RED BLOOD COUNT 3.32 10^6/uL (4.00-5.40); WHITE BLOOD COUNT 6.6 10^3/uL (4.0-10.0)
[2022-12-03 07:41] LABS: BLOOD UREA NITROGEN 16 MG/DL (9-23); CALCIUM LEVEL 8.6 MG/DL (8.3-10.6); CARBON DIOXIDE LEVEL 32 MMOL/L (20-31); CHLORIDE LEVEL 105 MMOL/L (98-107); CREATININE FOR GFR 0.69 MG/DL (0.55-1.30); GLOMERULAR FILTRATION RATE > 60.0 (>39); GLUCOSE, FASTING 107 MG/DL (74-106); SODIUM LEVEL 143 MMOL/L (136-145)
[2022-12-03] MEDS: ADVAIR HFA 230/21MCG INHALER INH SCH ×2 (07:56→20:26)
[2022-12-03] MEDS: ALBUTEROL 90 MCG/ACT 8GM HFA INHALER INH PRN ×2 (07:58→20:25)
[2022-12-03] MEDS: THEOPHYLLINE (THEO-24) 100MG SR **CAPSULE PO SCH (08:10)
[2022-12-03] MEDS: INSULIN LISPRO (NovoLOG) PER UNIT SC SCH ×4 (08:10→21:00)
[2022-12-03] MEDS: ASPIRIN 81MG ENTERIC TABLET PO SCH ×2 (08:11→21:35)
[2022-12-03] MEDS: guaiFENesin ER 600 MG TAB PO SCH ×2 (08:11→21:35)
[2022-12-03] MEDS: MULTIVITAMINS/MINERALS THERAP 1 TAB PO SCH (08:11)
[2022-12-03] MEDS: FERROUS SULFATE 325MG TAB PO SCH (08:11)
[2022-12-03] MEDS: ATORVASTATIN 10 MG TAB PO SCH (08:11)
[2022-12-03] MEDS: FUROSEMIDE 20 MG TAB PO SCH (08:11)
[2022-12-03] MEDS: MONTELUKAST 10 MG TAB PO SCH (08:11)
[2022-12-03] MEDS: ASCORBIC ACID 500 MG TAB PO SCH (08:12)
[2022-12-03] MEDS: DOCUSATE SODIUM 100MG CAPSULE PO SCH ×2 (08:12→21:35)
[2022-12-03] MEDS: BISACODYL 10MG SUPP PR SCH ×2 (08:12→21:00)
[2022-12-03] MEDS: PERCOCET 5MG/325MG TAB PO PRN ×3 (08:19→21:36)
[2022-12-03 20:00] VITALS: BP 114/58; TEMP 98.6; O2SAT 95
[2022-12-04] MEDS: MEROPENEM INJ 1 GM in IV 1 EA IV SCH ×2 (00:22→08:10)
[2022-12-04 04:30] VITALS: BP 135/69; TEMP 98.4; O2SAT 95
[2022-12-04] MEDS: SODIUM CHLORIDE 0.9% INJ 10 ML SYR IV SCH ×2 (05:53→16:30)
[2022-12-04] MEDS: SODIUM CHLORIDE 0.9% INJ 10 ML SYR IV PRN (05:53)
[2022-12-04 06:27] LABS: HEMATOCRIT 28.6 % (36.0-47.0); HEMOGLOBIN 8.8 g/dl (12.0-15.5); MEAN CORPUSCULAR HEMOGLOBIN 26.8 pg (27.0-33.0); MEAN CORPUSCULAR HGB CONC 30.8 g/dl (32.0-36.5); MEAN CORPUSCULAR VOLUME 87.2 fl (80.0-96.0); PLATELET COUNT, AUTOMATED 314 10^3/uL (150-450); RED BLOOD COUNT 3.28 10^6/uL (4.00-5.40)
[2022-12-04 06:50] LABS: BLOOD UREA NITROGEN 17 MG/DL (9-23); CALCIUM LEVEL 8.5 MG/DL (8.3-10.6); CARBON DIOXIDE LEVEL 30 MMOL/L (20-31); CHLORIDE LEVEL 106 MMOL/L (98-107); GLOMERULAR FILTRATION RATE > 60.0 (>39); GLUCOSE, FASTING 109 MG/DL (74-106); POTASSIUM SERUM 4.1 MMOL/L (3.5-5.1); SODIUM LEVEL 143 MMOL/L (136-145)
[2022-12-04] MEDS: ADVAIR HFA 230/21MCG INHALER INH SCH (07:21)
[2022-12-04] MEDS: INSULIN LISPRO (NovoLOG) PER UNIT SC SCH ×2 (08:09→12:44)
[2022-12-04] MEDS: FUROSEMIDE 20 MG TAB PO SCH (08:10)
[2022-12-04] MEDS: THEOPHYLLINE (THEO-24) 100MG SR **CAPSULE PO SCH (08:10)
[2022-12-04] MEDS: FERROUS SULFATE 325MG TAB PO SCH (08:10)
[2022-12-04] MEDS: ASCORBIC ACID 500 MG TAB PO SCH (08:10)
[2022-12-04] MEDS: MONTELUKAST 10 MG TAB PO SCH (08:11)
[2022-12-04] MEDS: ASPIRIN 81MG ENTERIC TABLET PO SCH (08:11)
[2022-12-04] MEDS: ATORVASTATIN 10 MG TAB PO SCH (08:11)
[2022-12-04] MEDS: PERCOCET 5MG/325MG TAB PO PRN ×2 (08:12→16:57)
[2022-12-04] MEDS: guaiFENesin ER 600 MG TAB PO SCH (08:12)
[2022-12-04] MEDS: MULTIVITAMINS/MINERALS THERAP 1 TAB PO SCH (08:12)
[2022-12-04] MEDS: DOCUSATE SODIUM 100MG CAPSULE PO SCH (08:12)
[2022-12-04] MEDS: BISACODYL 10MG SUPP PR SCH (08:13)
[2022-12-04] MEDS ORDERED: FURO20TA2 PO (15:14)
[2022-12-04] MEDS ORDERED: COLA100C5 PO (15:14)
[2022-12-04] MEDS ORDERED: ACET1TAB55 PO (15:14)
[2022-12-04] MEDS ORDERED: FERR1TAB8 PO (15:14)
[2022-12-04] MEDS ORDERED: SENN-188 PO (15:14)
[2022-12-04] MEDS ORDERED: ASPI81TAEC PO (15:18)
[2022-12-04] MEDS ORDERED: ERTA1INJ3 IJ (15:18)
[2022-12-04] MEDS ORDERED: OXYC1TAB23 PO (15:20)
[2022-12-04] MEDS ORDERED: ERTAPENEM SODIUM 1 GM in NS MINI-BAG PLUS 50 ML IV ONE (16:00)
== END 2022-12-04 17:55 | disposition home health service (06) | DRG 301 ==
LOC: M ED 10:37 → INTOOBSV 13:26 → M ED INP 13:26 → OBSVTOIN 13:26 → M MS5PR 20:21
PROVIDERS: ADMIT Internal Medicine; ATTEND Internal Medicine
PROC: 3E0U329 Introduction of Other Anti-infective into Joints, Percutaneous Approach (ICD-10-PCS; 2022-11-15)
PROC: 3E1Y38Z Irrigation of Pericardial Cavity using Irrigating Substance, Percutaneous Approach (ICD-10-PCS; 2022-11-15)
PROC: 0HBHXZZ Excision of Right Upper Leg Skin, External Approach (ICD-10-PCS; 2022-11-15)
PROC: 30233N1 Transfusion of Nonautologous Red Blood Cells into Peripheral Vein, Percutaneous Approach (ICD-10-PCS; 2022-11-20)
PROC: 0SPR0JZ Removal of Synthetic Substitute from Right Hip Joint, Femoral Surface, Open Approach (ICD-10-PCS; 2022-11-21)
PROC: 0SRR03Z Replacement of Right Hip Joint, Femoral Surface with Ceramic Synthetic Substitute, Open Approach (ICD-10-PCS; principal; 2022-11-21 15:00)
PROC: 02HV33Z Insertion of Infusion Device into Superior Vena Cava, Percutaneous Approach (ICD-10-PCS; 2022-11-23)
DX: M00.851 Arthritis due to other bacteria, right hip (principal); J90 Pleural effusion, not elsewhere classified; K22.0 Achalasia of cardia; Z96.641 Presence of right artificial hip joint; E11.9 Type 2 diabetes mellitus without complications; B96.89 Other specified bacterial agents as the cause of diseases classified elsewhere; E78.5 Hyperlipidemia, unspecified; R09.02 Hypoxemia; D50.9 Iron deficiency anemia, unspecified; J98.11 Atelectasis; K59.03 Drug induced constipation; J45.909 Unspecified asthma, uncomplicated; I20.9 Angina pectoris, unspecified; H35.30 Unspecified macular degeneration; K21.9 Gastro-esophageal reflux disease without esophagitis; T40.605A Adverse effect of unspecified narcotics, initial encounter; Z79.82 Long term (current) use of aspirin; Z79.84 Long term (current) use of oral hypoglycemic drugs; Z79.01 Long term (current) use of anticoagulants; Z79.899 Other long term (current) drug therapy; Z88.1 Allergy status to other antibiotic agents; Z88.2 Allergy status to sulfonamides; Z88.5 Allergy status to narcotic agent; Z88.8 Allergy status to other drugs, medicaments and biological substances; Z85.828 Personal history of other malignant neoplasm of skin

== ENCOUNTER → 2022-12-08 | Outpatient (CLI) | payer OTHER ==
[~2022-12-08] MED LIST changes: +ACET1TAB55 PO; +AMOX500T2 PO; +ASPI81TAEC PO; +COLA100C5 PO; +ERTA1INJ3 IJ; +FERR1TAB8 PO; +FURO20TA2 PO; -PANTOPRAZOLE 40MG VIAL IV SCH
== END ==
LOC: M SOG 09:52
PROVIDERS: ATTEND Orthopaedic Surgery
DX: Z47.1 Aftercare following joint replacement surgery (principal); Z96.641 Presence of right artificial hip joint

== ENCOUNTER → 2022-12-08 | Outpatient (CLI) | payer OTHER ==
[2022-12-08 15:08] LABS: BASO # 0.1 10^3/uL (0.0-0.2); BASO % 0.6 % (0.0-1.0); EOS # 0.4 10^3/uL (0.0-0.5); EOS % 3.8 % (0.0-3.0); HEMATOCRIT 34.9 % (36.0-47.0); HEMOGLOBIN 10.6 g/dl (12.0-15.5); LYMPH # 2.4 10^3/uL (1.5-5.0); LYMPH % 23.3 % (24.0-44.0); MEAN CORPUSCULAR HEMOGLOBIN 26.8 pg (27.0-33.0); MEAN CORPUSCULAR HGB CONC 30.4 g/dl (32.0-36.5); MEAN CORPUSCULAR VOLUME 88.1 fl (80.0-96.0); MONO # 0.8 10^3/uL (0.0-0.8); MONO % 7.3 % (2.0-8.0); NEUTROPHILS # 6.6 10^3/uL (1.5-8.5); NEUTROPHILS % 64.4 % (36.0-66.0); PLATELET COUNT, AUTOMATED 394 10^3/uL (150-450); RED BLOOD COUNT 3.96 10^6/uL (4.00-5.40); WHITE BLOOD COUNT 10.3 10^3/uL (4.0-10.0)
[2022-12-08 15:27] LABS: ALKALINE PHOSPHATASE 208 U/L (46-116); ALT/SGPT 14 U/L (7.0-40); AST/SGOT 17 U/L (<34); BILIRUBIN,TOTAL 0.4 MG/DL (0.3-1.2); BLOOD UREA NITROGEN 13 MG/DL (9-23); CARBON DIOXIDE LEVEL 29 MMOL/L (20-31); CHLORIDE LEVEL 104 MMOL/L (98-107); CREATININE FOR GFR 0.81 MG/DL (0.55-1.30); GLOMERULAR FILTRATION RATE > 60.0 (>39); GLUCOSE, FASTING 109 MG/DL (74-106); POTASSIUM SERUM 4.1 MMOL/L (3.5-5.1); SODIUM LEVEL 141 MMOL/L (136-145); TOTAL PROTEIN 6.7 G/DL (5.7-8.2)
[2022-12-08 15:45] LABS: HEMOGLOBIN A1c 6.2 % (4.0-6.0)
[2022-12-08 16:01] LABS: ERYTHROCYTE SEDIMENTATION RATE 72 mm/hr (0-30)
== END ==
LOC: M PLALAB 11:07
PROVIDERS: ATTEND Orthopaedic Surgery
DX: T84.51XA Infection and inflammatory reaction due to internal right hip prosthesis, initial encounter (principal)

== ENCOUNTER → 2022-12-12 | Outpatient (REF) | payer OTHER ==
[2022-12-12 16:05] LABS: HEMATOCRIT 32.8 % (36.0-47.0); HEMOGLOBIN 10.3 g/dl (12.0-15.5); MEAN CORPUSCULAR HGB CONC 31.4 g/dl (32.0-36.5); MEAN CORPUSCULAR VOLUME 86.1 fl (80.0-96.0); PLATELET COUNT, AUTOMATED 427 10^3/uL (150-450); RED BLOOD COUNT 3.81 10^6/uL (4.00-5.40); WHITE BLOOD COUNT 12.4 10^3/uL (4.0-10.0)
[2022-12-12 16:11] LABS: ALBUMIN 3.1 G/DL (3.2-5.2); ALKALINE PHOSPHATASE 191 U/L (46-116); ALT/SGPT 13 U/L (7.0-40); AST/SGOT 19 U/L (<34); BILIRUBIN,TOTAL 0.4 MG/DL (0.3-1.2); BLOOD UREA NITROGEN 14 MG/DL (9-23); CALCIUM LEVEL 8.7 MG/DL (8.3-10.6); CARBON DIOXIDE LEVEL 27 MMOL/L (20-31); CHLORIDE LEVEL 100 MMOL/L (98-107); CREATININE FOR GFR 0.74 MG/DL (0.55-1.30); GLOMERULAR FILTRATION RATE > 60.0 (>39); GLUCOSE, FASTING 109 MG/DL (74-106); POTASSIUM SERUM 3.8 MMOL/L (3.5-5.1); SODIUM LEVEL 138 MMOL/L (136-145)
[2022-12-12 17:01] LABS: EOSINOPHILS 7 % (0-3); LYMPHOCYTES 27 % (16-44); MONOCYTES 3 % (0-5); NEUTROPHILS 63 % (28-66); PLATELET ESTIMATE NORMAL (NORMAL)
[2022-12-12 17:08] LABS: ERYTHROCYTE SEDIMENTATION RATE 90 mm/hr (0-30)
== END ==
LOC: M SHH 15:16
PROVIDERS: ATTEND Internal Medicine Infectious Disease
DX: T84.51XA Infection and inflammatory reaction due to internal right hip prosthesis, initial encounter (principal); X58.XXXA Exposure to other specified factors, initial encounter

== ENCOUNTER → 2022-12-13 | Outpatient (CLI) | payer OTHER | LOC: M SOG 10:08 | PROVIDERS: ATTEND Orthopaedic Surgery | DX: M16.11 Unilateral primary osteoarthritis, right hip (principal); Z96.641 Presence of right artificial hip joint ==

== ENCOUNTER → 2022-12-18 | Outpatient (REF) | payer OTHER ==
[2022-12-18 18:59] LABS: HEMATOCRIT 34.6 % (36.0-47.0); HEMOGLOBIN 10.5 g/dl (12.0-15.5); MEAN CORPUSCULAR HEMOGLOBIN 26.3 pg (27.0-33.0); MEAN CORPUSCULAR HGB CONC 30.3 g/dl (32.0-36.5); MEAN CORPUSCULAR VOLUME 86.5 fl (80.0-96.0); PLATELET COUNT, AUTOMATED 445 10^3/uL (150-450); WHITE BLOOD COUNT 10.1 10^3/uL (4.0-10.0)
[2022-12-18 21:52] LABS: ALKALINE PHOSPHATASE 177 U/L (46-116); ALT/SGPT 16 U/L (7.0-40); AST/SGOT 15 U/L (<34); BILIRUBIN,TOTAL 0.3 MG/DL (0.3-1.2); BLOOD UREA NITROGEN 15 MG/DL (9-23); CALCIUM LEVEL 8.8 MG/DL (8.3-10.6); CARBON DIOXIDE LEVEL 27 MMOL/L (20-31); CHLORIDE LEVEL 104 MMOL/L (98-107); CREATININE FOR GFR 0.69 MG/DL (0.55-1.30); GLOMERULAR FILTRATION RATE > 60.0 (>39); GLUCOSE, FASTING 120 MG/DL (74-106); SODIUM LEVEL 140 MMOL/L (136-145); TOTAL PROTEIN 6.8 G/DL (5.7-8.2)
== END ==
LOC: M LAB REF 17:48
PROVIDERS: ATTEND Internal Medicine
DX: T84.50XA Infection and inflammatory reaction due to unspecified internal joint prosthesis, initial encounter (principal)

== ENCOUNTER → 2022-12-18 | Outpatient (REF) | payer OTHER ==
[2022-12-18 18:33] LABS: HEMATOCRIT 34.1 % (36.0-47.0); HEMOGLOBIN 10.4 g/dl (12.0-15.5); MEAN CORPUSCULAR HEMOGLOBIN 26.5 pg (27.0-33.0); MEAN CORPUSCULAR HGB CONC 30.5 g/dl (32.0-36.5); MEAN CORPUSCULAR VOLUME 86.8 fl (80.0-96.0); PLATELET COUNT, AUTOMATED 436 10^3/uL (150-450); RED BLOOD COUNT 3.93 10^6/uL (4.00-5.40); WHITE BLOOD COUNT 10.1 10^3/uL (4.0-10.0)
[2022-12-18 18:57] LABS: ERYTHROCYTE SEDIMENTATION RATE 65 mm/hr (0-30)
[2022-12-18 19:39] LABS: ATYPICAL LYMPH 2 % (0-5); BASOPHILS 1 % (0-1); EOSINOPHILS 10 % (0-3); LYMPHOCYTES 30 % (16-44); MONOCYTES 4 % (0-5); NEUTROPHILS 53 % (28-66); PLATELET ESTIMATE NORMAL (NORMAL)
[2022-12-18 19:40] LABS: HYPOCHROMASIA 1+
[2022-12-18 21:52] LABS: ALKALINE PHOSPHATASE 177 U/L (46-116); ALT/SGPT 14 U/L (7.0-40); AST/SGOT 15 U/L (<34); BILIRUBIN,TOTAL 0.3 MG/DL (0.3-1.2); BLOOD UREA NITROGEN 15 MG/DL (9-23); CALCIUM LEVEL 8.9 MG/DL (8.3-10.6); CARBON DIOXIDE LEVEL 27 MMOL/L (20-31); CHLORIDE LEVEL 104 MMOL/L (98-107); CREATININE FOR GFR 0.71 MG/DL (0.55-1.30); GLOMERULAR FILTRATION RATE > 60.0 (>39); GLUCOSE, FASTING 120 MG/DL (74-106); SODIUM LEVEL 139 MMOL/L (136-145); TOTAL PROTEIN 6.8 G/DL (5.7-8.2)
== END ==
LOC: M SFHCPLAZ 17:45
PROVIDERS: ATTEND Internal Medicine Infectious Disease
DX: T84.51XA Infection and inflammatory reaction due to internal right hip prosthesis, initial encounter (principal)

== ENCOUNTER → 2022-12-18 | Outpatient (CLI) | payer OTHER | LOC: M SOG 14:28 | PROVIDERS: ATTEND Orthopaedic Surgery | DX: T84.51XD Infection and inflammatory reaction due to internal right hip prosthesis, subsequent encounter (principal); M16.12 Unilateral primary osteoarthritis, left hip; Y93.9 Activity, unspecified; Y92.9 Unspecified place or not applicable ==

== ENCOUNTER → 2022-12-25 | Outpatient (CLI) | payer OTHER | LOC: M SOG 08:10 | PROVIDERS: ATTEND Orthopaedic Surgery | DX: T84.51XD Infection and inflammatory reaction due to internal right hip prosthesis, subsequent encounter (principal) ==

== ENCOUNTER → 2022-12-25 | Outpatient (REF) | payer OTHER ==
[2022-12-25 19:41] LABS: BASO # 0.1 10^3/uL (0.0-0.2); EOS # 0.5 10^3/uL (0.0-0.5); EOS % 5.7 % (0.0-3.0); HEMATOCRIT 33.9 % (36.0-47.0); HEMOGLOBIN 10.5 g/dl (12.0-15.5); LYMPH # 2.4 10^3/uL (1.5-5.0); LYMPH % 29.4 % (24.0-44.0); MEAN CORPUSCULAR HEMOGLOBIN 26.6 pg (27.0-33.0); MEAN CORPUSCULAR VOLUME 85.8 fl (80.0-96.0); MONO # 0.5 10^3/uL (0.0-0.8); MONO % 6.7 % (2.0-8.0); NEUTROPHILS # 4.6 10^3/uL (1.5-8.5); PLATELET COUNT, AUTOMATED 371 10^3/uL (150-450); RED BLOOD COUNT 3.95 10^6/uL (4.00-5.40); WHITE BLOOD COUNT 8.1 10^3/uL (4.0-10.0)
[2022-12-25 19:44] LABS: ALBUMIN 3.1 G/DL (3.2-5.2); ALKALINE PHOSPHATASE 186 U/L (46-116); ALT/SGPT 16 U/L (7.0-40); AST/SGOT 20 U/L (<34); BILIRUBIN,TOTAL 0.3 MG/DL (0.3-1.2); BLOOD UREA NITROGEN 18 MG/DL (9-23); CALCIUM LEVEL 8.8 MG/DL (8.3-10.6); CARBON DIOXIDE LEVEL 28 MMOL/L (20-31); CHLORIDE LEVEL 104 MMOL/L (98-107); CREATININE FOR GFR 0.76 MG/DL (0.55-1.30); GLOMERULAR FILTRATION RATE > 60.0 (>39); GLUCOSE, FASTING 149 MG/DL (74-106); POTASSIUM SERUM 3.8 MMOL/L (3.5-5.1); SODIUM LEVEL 140 MMOL/L (136-145); TOTAL PROTEIN 6.7 G/DL (5.7-8.2)
[2022-12-25 20:06] LABS: ERYTHROCYTE SEDIMENTATION RATE 56 mm/hr (0-30)
== END ==
LOC: M LAB REF 17:51
PROVIDERS: ATTEND Internal Medicine Infectious Disease
DX: T84.51XA Infection and inflammatory reaction due to internal right hip prosthesis, initial encounter (principal)

== ENCOUNTER → 2023-01-12 | Outpatient (CLI) | payer OTHER | LOC: M SOG 07:55 | PROVIDERS: ATTEND Orthopaedic Surgery | DX: Z47.1 Aftercare following joint replacement surgery (principal); Z96.641 Presence of right artificial hip joint ==

== ENCOUNTER → 2023-01-26 | Outpatient (CLI) | payer OTHER | LOC: M SOG 08:15 | PROVIDERS: ATTEND Orthopaedic Surgery | DX: Z96.641 Presence of right artificial hip joint (principal); T84.51XA Infection and inflammatory reaction due to internal right hip prosthesis, initial encounter ==

== ENCOUNTER → 2023-01-29 | Outpatient (CLI) | payer OTHER ==
[2023-01-29 14:31] LABS: BASO # 0.1 10^3/uL (0.0-0.2); BASO % 0.5 % (0.0-1.0); EOS # 0.3 10^3/uL (0.0-0.5); EOS % 1.7 % (0.0-3.0); HEMATOCRIT 36.9 % (36.0-47.0); HEMOGLOBIN 11.6 g/dl (12.0-15.5); LYMPH # 2.6 10^3/uL (1.5-5.0); LYMPH % 16.8 % (24.0-44.0); MEAN CORPUSCULAR HEMOGLOBIN 26.9 pg (27.0-33.0); MEAN CORPUSCULAR HGB CONC 31.4 g/dl (32.0-36.5); MEAN CORPUSCULAR VOLUME 85.6 fl (80.0-96.0); MONO % 6.6 % (2.0-8.0); NEUTROPHILS # 11.2 10^3/uL (1.5-8.5); NEUTROPHILS % 74.1 % (36.0-66.0); PLATELET COUNT, AUTOMATED 369 10^3/uL (150-450); RED BLOOD COUNT 4.31 10^6/uL (4.00-5.40); WHITE BLOOD COUNT 15.2 10^3/uL (4.0-10.0)
[2023-01-29 14:51] LABS: ERYTHROCYTE SEDIMENTATION RATE 42 mm/hr (0-30)
== END ==
LOC: M WUC 10:01
PROVIDERS: ATTEND Orthopaedic Surgery
DX: T84.51XD Infection and inflammatory reaction due to internal right hip prosthesis, subsequent encounter (principal)

== ENCOUNTER → 2023-02-05 | Outpatient (CLI) | payer OTHER ==
[2023-02-05 13:40] LABS: CHOLESTEROL RISK RATIO 2.63 (<5); HDL CHOLESTEROL 59.5 MG/DL (>40); LDL CHOLESTEROL 78.9 MG/DL (<100); NON-HDL-C 97.5 MG/DL
[2023-02-05 14:00] LABS: HEMOGLOBIN A1c 5.8 % (4.0-6.0)
== END ==
LOC: M PLALAB 09:06
PROVIDERS: ATTEND Internal Medicine Infectious Disease
DX: E11.9 Type 2 diabetes mellitus without complications (principal); E78.00 Pure hypercholesterolemia, unspecified

== ENCOUNTER → 2023-02-05 | Outpatient (CLI) | payer OTHER ==
[2023-02-05 13:47] LABS: BASO % 0.6 % (0.0-1.0); HEMATOCRIT 37.3 % (36.0-47.0); HEMOGLOBIN 11.6 g/dl (12.0-15.5); LYMPH # 2.7 10^3/uL (1.5-5.0); LYMPH % 18.5 % (24.0-44.0); MEAN CORPUSCULAR HEMOGLOBIN 26.6 pg (27.0-33.0); MEAN CORPUSCULAR HGB CONC 31.1 g/dl (32.0-36.5); MEAN CORPUSCULAR VOLUME 85.6 fl (80.0-96.0); MONO % 6.9 % (2.0-8.0); NEUTROPHILS # 10.2 10^3/uL (1.5-8.5); NEUTROPHILS % 70.6 % (36.0-66.0); PLATELET COUNT, AUTOMATED 422 10^3/uL (150-450); RED BLOOD COUNT 4.36 10^6/uL (4.00-5.40); WHITE BLOOD COUNT 14.5 10^3/uL (4.0-10.0)
[2023-02-05 13:48] LABS: BASO # 0.1 10^3/uL (0.0-0.2); EOS # 0.4 10^3/uL (0.0-0.5)
== END ==
LOC: M PLALAB 09:10
PROVIDERS: ATTEND Orthopaedic Surgery
DX: T84.51XD Infection and inflammatory reaction due to internal right hip prosthesis, subsequent encounter (principal); Y93.9 Activity, unspecified; Y92.9 Unspecified place or not applicable

== ENCOUNTER → 2023-02-16 | Outpatient (CLI) | payer OTHER | LOC: M SOG 08:03 | PROVIDERS: ATTEND Orthopaedic Surgery | DX: M25.551 Pain in right hip (principal) ==

== ENCOUNTER → 2023-02-19 | Outpatient (CLI) | payer OTHER ==
[2023-02-19 17:17] LABS: BASO # 0.1 10^3/uL (0.0-0.2); BASO % 0.9 % (0.0-1.0); EOS # 0.4 10^3/uL (0.0-0.5); EOS % 3.1 % (0.0-3.0); HEMATOCRIT 37.2 % (36.0-47.0); HEMOGLOBIN 11.5 g/dl (12.0-15.5); LYMPH # 3.4 10^3/uL (1.5-5.0); LYMPH % 29.5 % (24.0-44.0); MEAN CORPUSCULAR HEMOGLOBIN 26.9 pg (27.0-33.0); MEAN CORPUSCULAR HGB CONC 30.9 g/dl (32.0-36.5); MEAN CORPUSCULAR VOLUME 87.1 fl (80.0-96.0); MONO # 0.8 10^3/uL (0.0-0.8); MONO % 6.4 % (2.0-8.0); NEUTROPHILS % 59.8 % (36.0-66.0); PLATELET COUNT, AUTOMATED 403 10^3/uL (150-450); RED BLOOD COUNT 4.27 10^6/uL (4.00-5.40); WHITE BLOOD COUNT 11.6 10^3/uL (4.0-10.0)
[2023-02-19 18:07] LABS: ERYTHROCYTE SEDIMENTATION RATE 60 mm/hr (0-30)
== END ==
LOC: M WUC 11:44
PROVIDERS: ATTEND Orthopaedic Surgery
DX: T84.51XD Infection and inflammatory reaction due to internal right hip prosthesis, subsequent encounter (principal)

== ENCOUNTER → 2023-04-11 | Outpatient (CLI) | payer OTHER | LOC: M SOG 07:51 | PROVIDERS: ATTEND Orthopaedic Surgery | DX: Z96.641 Presence of right artificial hip joint (principal) ==

== ENCOUNTER → 2023-04-11 | Outpatient (REF) | payer OTHER ==
[2023-04-11 17:16] LABS: BASO # 0.1 10^3/uL (0.0-0.2); BASO % 0.3 % (0.0-1.0); EOS # 0.2 10^3/uL (0.0-0.5); EOS % 1.2 % (0.0-3.0); HEMATOCRIT 35.9 % (36.0-47.0); LYMPH # 3.1 10^3/uL (1.5-5.0); LYMPH % 16.2 % (24.0-44.0); MEAN CORPUSCULAR HEMOGLOBIN 27.3 pg (27.0-33.0); MEAN CORPUSCULAR HGB CONC 30.6 g/dl (32.0-36.5); MEAN CORPUSCULAR VOLUME 89.1 fl (80.0-96.0); MONO # 1.5 10^3/uL (0.0-0.8); MONO % 7.9 % (2.0-8.0); NEUTROPHILS # 14.2 10^3/uL (1.5-8.5); NEUTROPHILS % 73.8 % (36.0-66.0); PLATELET COUNT, AUTOMATED 315 10^3/uL (150-450); RED BLOOD COUNT 4.03 10^6/uL (4.00-5.40); WHITE BLOOD COUNT 19.2 10^3/uL (4.0-10.0)
== END ==
LOC: M LABWUC 16:17
PROVIDERS: ATTEND Orthopaedic Surgery
DX: T84.51XD Infection and inflammatory reaction due to internal right hip prosthesis, subsequent encounter (principal)

== ENCOUNTER → 2023-04-16 | Outpatient (CLI) | payer OTHER ==
[2023-04-16 15:44] LABS: BASO # 0.1 10^3/uL (0.0-0.2); BASO % 0.3 % (0.0-1.0); EOS # 0.4 10^3/uL (0.0-0.5); EOS % 2.4 % (0.0-3.0); HEMATOCRIT 36.2 % (36.0-47.0); HEMOGLOBIN 11.2 g/dl (12.0-15.5); LYMPH # 2.4 10^3/uL (1.5-5.0); LYMPH % 15.5 % (24.0-44.0); MEAN CORPUSCULAR HEMOGLOBIN 26.7 pg (27.0-33.0); MEAN CORPUSCULAR HGB CONC 30.9 g/dl (32.0-36.5); MEAN CORPUSCULAR VOLUME 86.2 fl (80.0-96.0); MONO # 0.9 10^3/uL (0.0-0.8); MONO % 5.8 % (2.0-8.0); NEUTROPHILS # 11.5 10^3/uL (1.5-8.5); NEUTROPHILS % 75.4 % (36.0-66.0); PLATELET COUNT, AUTOMATED 349 10^3/uL (150-450); WHITE BLOOD COUNT 15.3 10^3/uL (4.0-10.0)
[2023-04-16 16:19] LABS: ALKALINE PHOSPHATASE 170 U/L (46-116); ALT/SGPT 14 U/L (7.0-40); AST/SGOT 8 U/L (<34); BILIRUBIN,TOTAL 0.3 MG/DL (0.3-1.2); BLOOD UREA NITROGEN 15 MG/DL (9-23); CALCIUM LEVEL 8.7 MG/DL (8.3-10.6); CARBON DIOXIDE LEVEL 28 MMOL/L (20-31); CHLORIDE LEVEL 107 MMOL/L (98-107); CREATININE FOR GFR 0.87 MG/DL (0.55-1.30); GLOMERULAR FILTRATION RATE > 60.0 (>39); GLUCOSE, FASTING 201 MG/DL (74-106); POTASSIUM SERUM 4.1 MMOL/L (3.5-5.1); SODIUM LEVEL 141 MMOL/L (136-145); TOTAL PROTEIN 6.6 G/DL (5.7-8.2)
== END ==
LOC: M PLALAB 14:27
PROVIDERS: ATTEND Nurse Practitioner Family
DX: R06.02 Shortness of breath (principal); R07.81 Pleurodynia

== ENCOUNTER → 2023-05-07 | Outpatient (REF) | payer OTHER | LOC: M SFHCPLAZ 09:59 | PROVIDERS: ATTEND Student in an Organized Health Care Education/Training Program | DX: J22 Unspecified acute lower respiratory infection (principal) ==

== ENCOUNTER → 2023-05-08 | Outpatient (CLI) | payer OTHER ==
[~2023-05-08] MED LIST changes: +ISOVUE-370 76% 100ML VIAL As Ordered ONE
== END ==
LOC: M RAD 07:13
PROVIDERS: ATTEND Student in an Organized Health Care Education/Training Program
DX: R06.02 Shortness of breath (principal); J98.4 Other disorders of lung
CPT/HCPCS: 71275; Q9967

== ENCOUNTER → 2023-05-22 | Outpatient (CLI) | payer OTHER ==
[~2023-05-22] MED LIST changes: -ISOVUE-370 76% 100ML VIAL As Ordered ONE
[2023-05-22 12:21] LABS: BASO # 0.1 10^3/uL (0.0-0.2); BASO % 0.8 % (0.0-1.0); EOS # 0.5 10^3/uL (0.0-0.5); EOS % 4.2 % (0.0-3.0); HEMATOCRIT 38.8 % (36.0-47.0); HEMOGLOBIN 11.9 g/dl (12.0-15.5); LYMPH # 2.6 10^3/uL (1.5-5.0); LYMPH % 22.2 % (24.0-44.0); MEAN CORPUSCULAR HEMOGLOBIN 26.4 pg (27.0-33.0); MEAN CORPUSCULAR HGB CONC 30.7 g/dl (32.0-36.5); MONO % 8.3 % (2.0-8.0); NEUTROPHILS # 7.6 10^3/uL (1.5-8.5); NEUTROPHILS % 63.8 % (36.0-66.0); PLATELET COUNT, AUTOMATED 540 10^3/uL (150-450); RED BLOOD COUNT 4.51 10^6/uL (4.00-5.40); WHITE BLOOD COUNT 11.9 10^3/uL (4.0-10.0)
[2023-05-22 12:50] LABS: IMMUNOGLOBULIN A 380.5 MG/DL (40-350)
[2023-05-22 12:53] LABS: IMMUNOGLOBULIN G 1239 MG/DL (650-1600)
== END ==
LOC: M LAB 09:17 → M PLALAB 09:17
PROVIDERS: ATTEND Internal Medicine Infectious Disease
DX: R91.8 Other nonspecific abnormal finding of lung field (principal)

== ENCOUNTER → 2023-05-23 | Outpatient (CLI) | payer OTHER | LOC: M SOG 07:59 | PROVIDERS: ATTEND Orthopaedic Surgery | DX: Z96.641 Presence of right artificial hip joint (principal) ==

== ENCOUNTER → 2023-07-02 | Outpatient (CLI) | payer OTHER | LOC: M RAD 07:18 | PROVIDERS: ATTEND Internal Medicine Critical Care Medicine | DX: J18.9 Pneumonia, unspecified organism (principal) ==

== ENCOUNTER → 2023-07-09 | Outpatient (CLI) | payer OTHER ==
[~2023-07-09] MED LIST changes: +BARIUM SULFATE 700 MG TABLET (E-Z-DISK) As Ordered ONE; +E-Z-PAQUE 96% w/w SUSP 176GM BTL As Ordered ONE; +VARIBAR NECTAR 40% w/v 240ML SUSP BTL As Ordered ONE; +VARIBAR PUDDING 40% w/v 230ML TUBE As Ordered ONE
== END ==
LOC: M RAD 12:33
PROVIDERS: ATTEND Internal Medicine Critical Care Medicine
DX: R13.19 Other dysphagia (principal)

== ENCOUNTER → 2023-08-16 | Outpatient (REF) | payer OTHER ==
[~2023-08-16] MED LIST changes: -BARIUM SULFATE 700 MG TABLET (E-Z-DISK) As Ordered ONE; -E-Z-PAQUE 96% w/w SUSP 176GM BTL As Ordered ONE; +OCUV1CHW PO; -VARIBAR NECTAR 40% w/v 240ML SUSP BTL As Ordered ONE; -VARIBAR PUDDING 40% w/v 230ML TUBE As Ordered ONE
[2023-08-16 17:37] LABS: HEMATOCRIT 40.1 % (36.0-47.0); HEMOGLOBIN 12.7 g/dl (12.0-15.5); MEAN CORPUSCULAR HGB CONC 31.7 g/dl (32.0-36.5); MEAN CORPUSCULAR VOLUME 85.1 fl (80.0-96.0); PLATELET COUNT, AUTOMATED 352 10^3/uL (150-450); RED BLOOD COUNT 4.71 10^6/uL (4.00-5.40); WHITE BLOOD COUNT 9.9 10^3/uL (4.0-10.0)
[2023-08-16 17:59] LABS: CREATININE, URINE 116.8 MG/DL; HEMOGLOBIN A1c 6.4 % (4.0-6.0)
[2023-08-16 18:00] LABS: MALB URINE SIEMENS < 3.0 MG/L; MAU/CREAT RATIO 2.5 MCG/MG (0.0-30.0)
[2023-08-16 18:39] LABS: FREE T4 1.15 NG/DL (0.89-1.76); THYROID STIMULATING HORMONE 2.765 uIU/ML (0.55-4.78)
[2023-08-16 18:40] LABS: ALBUMIN 3.2 G/DL (3.2-5.2); ALKALINE PHOSPHATASE 148 U/L (46-116); ALT/SGPT 11 U/L (7.0-40); AST/SGOT 14 U/L (<34); BILIRUBIN,TOTAL 0.6 MG/DL (0.3-1.2); BLOOD UREA NITROGEN 17 MG/DL (9-23); CALCIUM LEVEL 9.2 MG/DL (8.3-10.6); CARBON DIOXIDE LEVEL 30 MMOL/L (20-31); CHLORIDE LEVEL 104 MMOL/L (98-107); CHOLESTEROL LEVEL 163 MG/DL (<200); CREATININE FOR GFR 0.88 MG/DL (0.55-1.30); GLOMERULAR FILTRATION RATE > 60.0 (>39); GLUCOSE, FASTING 99 MG/DL (74-106); HDL CHOLESTEROL 60.3 MG/DL (>40); LDL CHOLESTEROL 87.9 MG/DL (<100); NON-HDL-C 102.7 MG/DL; POTASSIUM SERUM 4.5 MMOL/L (3.5-5.1); SODIUM LEVEL 141 MMOL/L (136-145); TOTAL 25(OH) VITAMIN D 36.1 NG/ML (20.0-100.0); TRIGLYCERIDES LEVEL 74 MG/DL (<150)
[2023-08-16 18:42] LABS: VITAMIN B12 LEVEL 563 PG/ML (211-911)
== END ==
LOC: M PLALAB 16:19
PROVIDERS: ATTEND Internal Medicine Hematology
DX: E11.9 Type 2 diabetes mellitus without complications (principal)

== ENCOUNTER → 2023-08-22 | Outpatient (CLI) | payer OTHER | LOC: M SOG 07:52 | PROVIDERS: ATTEND Orthopaedic Surgery | DX: Z96.641 Presence of right artificial hip joint (principal) ==

== ENCOUNTER 2023-08-27 10:17 | Day surgery (SDC) | payer OTHER ==
[~2023-08-27] VITALS: Ht 165.1 cm; Wt 84.8 kg
[2023-08-27] MEDS: NS 1,000 ML IV ONE (10:38)
[2023-08-27] MEDS ORDERED: fentaNYL 100 MCG/2 ML INJECTION As Ordered ONE (11:11)
[2023-08-27 12:11] VITALS: TEMP 97
[2023-08-27] MEDS ORDERED: propofoL 500 MG/50 ML VIAL As Ordered ONE (12:23)
[2023-08-27] MEDS ORDERED: LIDOCAINE 2% 100MG/5ML SDV (FOR ANES.) As Ordered ONE (12:23)
[2023-08-27 12:30] VITALS: BP 133/60; O2SAT 97
== END 2023-08-27 13:03 | disposition home or self-care (01) ==
LOC: M OPP 10:17
PROVIDERS: ATTEND Internal Medicine Gastroenterology
DX: Z12.11 Encounter for screening for malignant neoplasm of colon (principal); D12.5 Benign neoplasm of sigmoid colon; D12.2 Benign neoplasm of ascending colon; D12.4 Benign neoplasm of descending colon; K57.30 Diverticulosis of large intestine without perforation or abscess without bleeding; K64.8 Other hemorrhoids; K22.0 Achalasia of cardia; K22.89 Other specified disease of esophagus; E11.9 Type 2 diabetes mellitus without complications; E78.00 Pure hypercholesterolemia, unspecified; J45.909 Unspecified asthma, uncomplicated; Z79.899 Other long term (current) drug therapy; Z88.1 Allergy status to other antibiotic agents; Z88.2 Allergy status to sulfonamides; Z88.5 Allergy status to narcotic agent; Z79.84 Long term (current) use of oral hypoglycemic drugs; Z79.51 Long term (current) use of inhaled steroids
CPT/HCPCS: 43249; 45385; 88305; J3010

== ENCOUNTER → 2024-01-28 | Outpatient (CLI) | payer MEDICARE, OTHER | LOC: M RAD 07:22 | PROVIDERS: ATTEND Internal Medicine Critical Care Medicine | DX: J18.9 Pneumonia, unspecified organism (principal); J84.10 Pulmonary fibrosis, unspecified; R91.8 Other nonspecific abnormal finding of lung field; I25.10 Atherosclerotic heart disease of native coronary artery without angina pectoris; I70.0 Atherosclerosis of aorta; K22.89 Other specified disease of esophagus ==

== ENCOUNTER → 2024-02-18 | Outpatient (CLI) | payer OTHER, MEDICARE ==
[~2024-02-18] MED LIST changes: -MIDO2.5T PO; +MIDO2.5T3 PO
== END ==
LOC: M SOG 07:51
PROVIDERS: ATTEND Orthopaedic Surgery
DX: Z96.641 Presence of right artificial hip joint (principal)

== ENCOUNTER → 2024-03-01 | Outpatient (CLI) | payer MEDICARE, OTHER ==
[2024-03-01 10:10] LABS: BASO # 0.1 10^3/uL (0.0-0.2); BASO % 0.8 % (0.0-1.0); EOS # 0.7 10^3/uL (0.0-0.5); EOS % 6.6 % (0.0-3.0); HEMATOCRIT 40.1 % (36.0-47.0); HEMOGLOBIN 12.5 g/dl (12.0-15.5); LYMPH # 2.4 10^3/uL (1.5-5.0); LYMPH % 24.1 % (24.0-44.0); MEAN CORPUSCULAR HEMOGLOBIN 27.4 pg (27.0-33.0); MEAN CORPUSCULAR HGB CONC 31.2 g/dl (32.0-36.5); MEAN CORPUSCULAR VOLUME 87.9 fl (80.0-96.0); MONO # 0.8 10^3/uL (0.0-0.8); MONO % 8.5 % (2.0-8.0); NEUTROPHILS # 5.8 10^3/uL (1.5-8.5); NEUTROPHILS % 59.4 % (36.0-66.0); PLATELET COUNT, AUTOMATED 328 10^3/uL (150-450); RED BLOOD COUNT 4.56 10^6/uL (4.00-5.40); WHITE BLOOD COUNT 9.8 10^3/uL (4.0-10.0)
[2024-03-01 10:32] LABS: ALBUMIN 3.4 G/DL (3.2-5.2); ALKALINE PHOSPHATASE 136 U/L (35-104); ALT/SGPT 11 U/L (7.0-40); AST/SGOT 10 U/L (<34); BILIRUBIN,TOTAL 0.7 MG/DL (0.3-1.2); BLOOD UREA NITROGEN 15 MG/DL (9-23); CALCIUM LEVEL 9.6 MG/DL (8.3-10.6); CARBON DIOXIDE LEVEL 29 MMOL/L (20-31); CHLORIDE LEVEL 106 MMOL/L (98-107); CHOLESTEROL LEVEL 162 MG/DL (<200); CHOLESTEROL RISK RATIO 2.55 (<5); CREATININE FOR GFR 0.97 MG/DL (0.55-1.30); GLOMERULAR FILTRATION RATE > 60.0 (>39); GLUCOSE, FASTING 114 MG/DL (74-106); HDL CHOLESTEROL 63.5 MG/DL (>40); LDL CHOLESTEROL 84.7 MG/DL (<100); NON-HDL-C 98.5 MG/DL; POTASSIUM SERUM 4.3 MMOL/L (3.5-5.1); SODIUM LEVEL 142 MMOL/L (136-145); TOTAL PROTEIN 7.2 G/DL (5.7-8.2); TRIGLYCERIDES LEVEL 69 MG/DL (<150)
[2024-03-01 10:33] LABS: FREE T4 1.14 NG/DL (0.89-1.76); VITAMIN B12 LEVEL 589 PG/ML (211-911)
[2024-03-01 10:34] LABS: TOTAL 25(OH) VITAMIN D 30.6 NG/ML (20.0-100.0)
[2024-03-01 10:35] LABS: THYROID STIMULATING HORMONE 2.269 uIU/ML (0.55-4.78)
[2024-03-01 10:53] LABS: CREATININE, URINE 98.3 MG/DL; MALB URINE SIEMENS < 3.0 MG/L
== END ==
LOC: M LAB 08:25
PROVIDERS: ATTEND Internal Medicine Hematology
DX: E11.9 Type 2 diabetes mellitus without complications (principal)

== ENCOUNTER → 2024-08-19 | Outpatient (CLI) | payer OTHER ==
[~2024-08-19] MED LIST changes: -ADV500INH INH; +ADVA1AER10 INH
[2024-08-19 18:31] LABS: BASO # 0.1 10^3/uL (0.0-0.2); BASO % 0.7 % (0.0-1.0); EOS # 0.3 10^3/uL (0.0-0.5); EOS % 2.2 % (0.0-3.0); HEMATOCRIT 42.3 % (36.0-47.0); HEMOGLOBIN 12.9 g/dl (12.0-15.5); LYMPH # 3.5 10^3/uL (1.5-5.0); LYMPH % 28.4 % (24.0-44.0); MEAN CORPUSCULAR HEMOGLOBIN 26.8 pg (27.0-33.0); MEAN CORPUSCULAR HGB CONC 30.5 g/dl (32.0-36.5); MEAN CORPUSCULAR VOLUME 87.8 fl (80.0-96.0); MONO # 0.8 10^3/uL (0.0-0.8); MONO % 6.2 % (2.0-8.0); NEUTROPHILS # 7.6 10^3/uL (1.5-8.5); NEUTROPHILS % 62.2 % (36.0-66.0); PLATELET COUNT, AUTOMATED 342 10^3/uL (150-450); RED BLOOD COUNT 4.82 10^6/uL (4.00-5.40); WHITE BLOOD COUNT 12.3 10^3/uL (4.0-10.0)
[2024-08-19 19:31] LABS: ERYTHROCYTE SEDIMENTATION RATE 53 mm/hr (0-30)
== END ==
LOC: M WUC 11:42
PROVIDERS: ATTEND Orthopaedic Surgery
DX: Z96.641 Presence of right artificial hip joint (principal)

== ENCOUNTER → 2024-08-19 | Outpatient (CLI) | payer OTHER | LOC: M SOG 07:09 | PROVIDERS: ATTEND Orthopaedic Surgery | DX: Z96.641 Presence of right artificial hip joint (principal); Z47.1 Aftercare following joint replacement surgery ==

== ENCOUNTER → 2024-08-19 | Outpatient (CLI) | payer OTHER ==
[2024-08-19 18:48] LABS: HEMOGLOBIN A1c 6.8 % (4.0-6.0)
== END ==
LOC: M WUC 11:44
PROVIDERS: ATTEND Student in an Organized Health Care Education/Training Program
DX: J45.909 Unspecified asthma, uncomplicated (principal)

== ENCOUNTER → 2024-11-26 | Outpatient (REF) | payer OTHER, MEDICARE | LOC: M LAB REF 17:38 | PROVIDERS: ATTEND Plastic Surgery Surgery of the Hand | DX: L72.0 Epidermal cyst (principal) ==

== ENCOUNTER → 2024-12-22 | Outpatient (REF) | payer OTHER | LOC: M SFHCPLAZ 11:42 | PROVIDERS: ATTEND Student in an Organized Health Care Education/Training Program | DX: Z53.9 Procedure and treatment not carried out, unspecified reason (principal) ==

== ENCOUNTER → 2025-02-07 | Outpatient (CLI) | payer OTHER ==
[2025-02-07 09:33] LABS: BASO # 0.1 10^3/uL (0.0-0.2); BASO % 0.9 % (0.0-1.0); EOS # 0.6 10^3/uL (0.0-0.5); EOS % 7.5 % (0.0-3.0); LYMPH # 2.3 10^3/uL (1.5-5.0); LYMPH % 30.3 % (24.0-44.0); MONO # 0.6 10^3/uL (0.0-0.8); MONO % 8.4 % (2.0-8.0); NEUTROPHILS # 4.0 10^3/uL (1.5-8.5); NEUTROPHILS % 52.5 % (36.0-66.0); PLATELET COUNT, AUTOMATED 319 10^3/uL (150-450)
[2025-02-07 10:01] LABS: ALT/SGPT 11.0 U/L (7.0-40); AST/SGOT 18.0 U/L (<34); CALCIUM LEVEL 9.0 MG/DL (8.3-10.6); CARBON DIOXIDE LEVEL 29.0 MMOL/L (20-31); CHLORIDE LEVEL 109.0 MMOL/L (98-107); CHOLESTEROL LEVEL 167.0 MG/DL (<200); CHOLESTEROL RISK RATIO 2.62 (<5); CREATININE FOR GFR 0.97 MG/DL (0.55-1.30); CREATININE, URINE 88.8 MG/DL; GLOMERULAR FILTRATION RATE 62.1 (>39); LDL CHOLESTEROL 87.9 MG/DL (<100); MALB URINE SIEMENS < 3.0 MG/L; NON-HDL-C 103.5 MG/DL; POTASSIUM SERUM 4.8 MMOL/L (3.5-5.1); SODIUM LEVEL 146.0 MMOL/L (136-145); TRIGLYCERIDES LEVEL 78.0 MG/DL (<150)
[2025-02-07 10:06] LABS: ESTIMATED AVERAGE GLUCOSE 148.0 MG/DL (60-110)
== END ==
LOC: M LAB 08:23
PROVIDERS: ATTEND Student in an Organized Health Care Education/Training Program
DX: E11.9 Type 2 diabetes mellitus without complications (principal)

== ENCOUNTER → 2025-02-12 | Outpatient (REF) | payer OTHER | LOC: M SFHCPLAZ 22:01 | PROVIDERS: ATTEND Family Medicine | DX: Z53.9 Procedure and treatment not carried out, unspecified reason (principal) ==

== ENCOUNTER → 2025-02-19 | Outpatient (CLI) | payer OTHER | LOC: M SOG 07:37 | PROVIDERS: ATTEND Orthopaedic Surgery | DX: Z96.641 Presence of right artificial hip joint (principal) ==